=== PATIENT | female | born 1935 | race Caucasian/White ===

== ENCOUNTER 2017-01-21 17:20 | Inpatient (IN) | payer MEDICARE ==
[~2017-01-21] VITALS: Ht 165.1 cm; Wt 69.4 kg
[~2017-01-21 17:20] MED LIST: ACET-732 PO; ASCO100T10 PO; ASPI-623 PO; CALC-586 PO; DOCU-118 PO; IBUP200C42 PO; LUTE20CA3 PO; MULT-806 PO; OMEP20TA11 PO; PRAV40TA46 PO; SPIR50TA26 PO; VERA80TA PO
--- OUTSIDE RECORDS SUMMARY | 2017-01-21 17:52 | XMS REPORT | Referral Summary ---
Author Organization Unknown Address Unknown Phone Unavailable Care Team Providers Care Manager Unit Name Role Phone Jeannie Kulkarni Primary Care Physician [phone] Encounter VC Date(s): 10/25/14 - 10/25/14 [facility]PHANIE Carrillo, [facility], Internal Medicine [address] [place] [address] ANA Spencer [id number] Discharge Diagnosis: Mild cognitive impairment Discharge Disposition: Home or Self Care Attending Physician: Terrence Kulkarni MD Admitting Physician: Terrence Kulkarni MD Vital Signs Most recent to 1 oldest [Reference Range]: Temperature Oral 36.1 degC [35.8-37.3 degC] (10/25/14 1:14 PM) Peripheral Pulse 74 bpm Rate [60-100 bpm] (10/25/14 1:14 PM) Respiratory Rate 16 br/min [14-20 br/min] (10/25/14 1:14 PM) Blood Pressure 150/78 mmHg [90-140/60-90 mmHg] *HI* (10/25/14 1:14 PM) Most recent to 1 oldest [Reference Range]: SpO2 97 % (10/25/14 1:14 PM) Problem List Condition Effective Dates Status Health Status Informant Cataracts(Confirmed) 2001 Active Chicken Active pox(Confirmed) Constipation(Confirm Active ed) Gastro-esophageal Active reflux(Confirmed) Hearing Active loss(Confirmed)1 High 2004 Active cholesterol(Confirme d) Hives(Confirmed) Active Hypertension(Confirm 1977 Active ed) Urine Active Infection(Confirmed) Insomnia(Confirmed) 2005 Active Measles(Confirmed) Active Menopausal 1979 Resolved symptoms(Confirmed) Migraine Active headache(Confirmed) Mumps(Confirmed) Active Osteoarthritis(Confi 1973 Active rmed) Overweight(Confirmed 1960 Active ) Scarlet Active fever(Confirmed) Stress 2007 Active incontinence(Confirm ed) Stroke(Confirmed) 1985 Active TIA(Confirmed) Active Urge Active incontinence(Confirm ed) Visual 1948 Active problems(Confirmed) 1Partial Allergies, Adverse Reactions, Alerts Substance Reaction Severity Status acetaminophen Active clarithromycin Active ezetimibe Active HYDROcodone Active niacin hot flashes and itching Active penicillin Trouble Breathing Active propranolol Active rofecoxib Active Medications aspirin 325 mg, Oral, Daily, as needed for pain, 0 Refill(s) Start Date: 04/29/14 Status: Ordered bethanechol 25 mg oral tablet 1 tabs, Oral, Daily, 0 Refill(s) Start Date: 05/31/14 Status: Ordered Dulcolax Stool Softener mg, Oral, Daily, as needed for constipation, 0 Refill(s) Start Date: 04/29/14 Status: Ordered Flax Seed Oil ground meal, 0 Refill(s) Special Instructions: ground meal Start Date: 04/26/14 Status: Ordered ibuprofen 200 mg oral tablet 1 tabs, Oral, q6hr, 0 Refill(s) Start Date: 04/26/14 Status: Ordered Lutein 20 mg oral tablet 1 tabs, Oral, Daily, # 30 tabs, 0 Refill(s) Start Date: 04/26/14 Status: Ordered pravastatin 40 mg oral tablet See Instructions, TAKE ONE TABLET BY MOUTH EVERY DAY, # 90 tabs, eRx: [facility]94, TAKE ONE TABLET BY MOUTH EVERY DAY Special Instructions: TAKE ONE TABLET BY MOUTH EVERY DAY Start Date: 08/26/14 Status: Ordered spironolactone 100 mg oral tablet See Instructions, TAKE ONE TABLET BY MOUTH DAILY ALTERNATING WITH 1/2 TABLET EVERY OTHER DAY., # 72 tabs, eRx: [facility] 794, TAKE ONE TABLET BY MOUTH DAILY ALTERNATING WITH 1/2 TABLET EVERY OTHER DAY. Special Instructions: TAKE ONE TABLET BY MOUTH DAILY ALTERNATING WITH 1/2 TABLET EVERY OTHER DAY. Start Date: 09/30/14 Status: Ordered verapamil 80 mg oral tablet See Instructions, TAKE ONE TABLET BY MOUTH THREE TIMES DAILY, # 270 tabs, eRx: [facility] 794, TAKE ONE TABLET BY MOUTH THREE TIMES DAILY Special Instructions: TAKE ONE TABLET BY MOUTH THREE TIMES DAILY Start Date: 09/24/14 Status: Ordered Results No data available for this section Immunizations Vaccine Date Refusal Reason influenza virus vaccine, inactivated 07/09/14 influenza virus vaccine, live 07/18/13 influenza virus vaccine, live 08/04/12 pneumococcal 23-polyvalent vaccine 12/04/03 tetanus-diphth toxoids (Td) adult/adol 08/03/05 zoster vaccine live 06/27/12 Procedures Procedure Date Related Diagnosis Body Site Vasovagal syncope1 2013 Cataract extraction2 2012 Colonoscopy3 02/18/12 Colonoscopy - Diverticuli 2007 Hernia repair4 1998 Repair of ventral hernia 1998 Hernia repair 1996 Colonoscopy - hyperplastic polyps 1994 Cholecystectomy 1989 Cholecystectomy 1989 Repair of epigastric hernia 1989 Hysterectomy 1983 Toenail Removed 1983 Vaginal hysterectomy 1983 Back strain 1980 Dilation and curettage 1980 Abdominal cramping 1973 Hemorrhoidectomy 1973 Appendectomy 1954 Cystoscopy gall bladder Rectocele Repair 1Hospitalization for evaluation. 2BILATERAL 3WNL, MInimal # Sigmond Diverticula. Fam HX 1st Degree-Repeat 5 Years 4Right Inguinal. and Incisional Social History Social History Type Response Smoking Status Never smoker Assessment and Plan Extracted from: Title: Ambulatory Patient Education Author: Terrence Kulkarni MD Date: Follow Up With: Where: When: Terrence Santiago[address]; [place] [address] [facility] ([facility]) In 4 months 02/22/2015 Comments: Extracted from: Title: Office Visit Note Author: Terrence Kulkarni MD Date: 10/25/14 Assessment/Plan Mild cognitive impairment Her condition is stable at this time. Her appointment today was over 20 minutes with over 50 percent of the appointment devoted to counseling. Ordered: Office Visit Level 3 Est [address]806
--- OUTSIDE RECORDS SUMMARY | 2017-01-21 17:52 | XMS REPORT | Summary of Care ---
Author Author Blayne Robins, Brooke Organization Unknown Address [address], [place] [id number] Phone Unavailable Care Team Providers Care Pharmacy Benefits Coordinator Name Role Phone SangeetajahOseas Unavailable Unavailable Mell Nam M.D. Unavailable Unavailable Brooke Cisneros M.D. Unavailable Unavailable Nicole Cisneros Unavailable Unavailable Unavailable Unavailable Functional Status Name Dates Details Functional status health issues are not documented Status: Name Dates Details Cognitive status health issues are not documented Status: Problems Name Dates Details Viral gastroenteritis (008.8, A08.4) Status: Active Urinary retention (788.20, R33.9) Status: Active Urge incontinence (788.31, N39.41) Status: Active Upper GI bleed (578.9, K92.2) Status: Active Peripheral neuropathy (356.9, G62.9) Status: Active Osteoarthritis (715.90, M19.90) Status: Active Neurogenic bladder (596.54, N31.9) Status: Active Gastritis (535.50, K29.70) Status: Active Antral gastritis (535.40, K29.50) Status: Active Decreased hearing of both ears (389.9, H91.93) Status: Active Aortic stenosis, moderate (424.1, I35.0) Status: Active 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 * Start Active Verapamil HCl - 80 MG Oral Tablet TAKE ONE TABLET BY MOUTH THREE TIMES DAILY * Quantity: 90 Refills: 0 Ramin Nam M.D. Start 09-Jun-2016 Active Pravastatin Sodium 40 MG Oral Tablet TAKE 1 TABLET DAILY AT BEDTIME. * Quantity: 90 Refills: 1 Ramin Nam M.D. * Start 09-Sep-2009 Active Lutein 20 MG Oral Tablet * Refills: 0 * Start 18-Aug-2012 Active Stool Softener 100 MG Oral Tablet * Refills: 0 * Start 18-Aug-2012 Active Bethanechol Chloride 25 MG Oral Tablet TAKE ONE TABLET BY MOUTH ONCE DAILY * Quantity: 90 Refills: 3 Fredy Pillai * Start 17-May-2014 Active Tylenol 325 MG Oral Tablet TAKE 2 TABLETS EVERY 6 HOURS NEEDED. * Refills: 0 Ramin Nam M.D. * Start 22-Jul-2016 Active Fluticasone Propionate 50 MCG/ACT Nasal Suspension * Refills: 0 * Start 22-Sep-2016 Active Lansoprazole 15 MG Oral Capsule Delayed Release TAKE 1 CAPSULE EVERY MORNING DAILY. * Quantity: 30 Refills: 0 Brooke Cisneros M.D. * Start 05-Nov-2016 Active Namzaric 7 & 14 & 21 &28 -10 MG Oral Capsule ER 24 Hour Therapy Pack Take 1- 7 mg/ capsule daily x 1 week, then 1 - 14 mg capsule daily x 1 week, the 1 - 21 capsule daily x 1 week, then 1 - 28 mg capsule daily * Quantity: 28 Refills: 0 Brooke Cisneros M.D. * Start 05-Nov-2016 Active Spironolactone 50 MG Oral Tablet TAKE 1/2 TABLETS DAILY FOT HTN * Refills: 0 * Start 01-Dec-2016 Active Allergies and Adverse Reactions Name Dates Details Biaxin TABS (Allergy) Status: Active Flexeril (Allergy) Status: Active Inderal TABS (Allergy) Status: Active Niacin TABS (Allergy) Status: Active Penicillins (Allergy) Status: Active Vicodin TABS (Allergy) Status: Active Vioxx TABS (Allergy) Status: Active Vytorin TABS (Allergy) Status: Active Past Medical History Name Dates Details Antral gastritis (535.40, K29.50) Status: Active Aortic stenosis, moderate (424.1, I35.0) Status: Active 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, 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) Status: Active Dementia in Alzheimer's disease (331.0, G30.9) Status: Active Esophageal reflux (530.81, K21.9) Status: Active Gastritis (535.50, K29.70) Status: Active Hyperlipidemia (272.4, E78.5) Status: Active Hypertension (401.9, I10) Status: Active Neurogenic bladder (596.54, N31.9) Status: Active Osteoarthritis (715.90, M19.90) Status: Active Peripheral neuropathy (356.9, G62.9) Status: Active Upper GI bleed (578.9, K92.2) Status: Active Urge incontinence (788.31, N39.41) Status: Active Urinary retention (788.20, R33.9) Status: Active Viral gastroenteritis (008.8, A08.4) Status: Active History of Actinic keratosis (702.0, L57.0) Status: Resolved History of angioedema (V13.89, Z87.898) Status: Resolved History of Intertrigo (695.89, L30.4) Status: Resolved History of Left otitis media with effusion (381.4, H66.92) Status: Resolved History of seborrheic dermatitis (V13.3, Z87.2) Status: Resolved Personal history of skin cancer (V10.83, Z85.828) Status: Resolved Procedures Procedure Dates Details History of Appendectomy History of Gallbladder Surgery History of Hysterectomy DEXA Ordered: 01-Dec-2016 Immunization Name Dates Details Fluzone High-Dose 0.5 ML Intramuscular Suspension Prefilled Syringe on: 23-Jun-2016 Prevnar 13 Intramuscular Suspension Lot #: [id number] on: 22-Jul-2016 Family History Name Dates Details Family history of kidney stones (V18.69, Z84.1) Status: Active Name Dates Details Family history of Hay Fever Status: Active Social History Name Dates Details - Status: Name Dates Details Never smoker Vital Signs Date Test Result Details 01-Dec-2016 09:08 BP Systolic 142 mm[Hg] Status: Comments: Location: ; Position: BP Diastolic 80 mm[Hg] Status: Comments: Location: ; Position: Temperature 98 f Status: Heart Rate 76 /min Status: Comments: Location: ; Physical Findings 18 Status: Comments: Respiration Weight 155 lb Status: Body Mass Index Calculated 28.35 kg/m2 Status: Body Surface Area Calculated 1.72 m2 Status: 05-Nov-2016 13:18 BP Systolic 136 mm[Hg] Status: Comments: Location: ; Position: BP Diastolic 74 mm[Hg] Status: Comments: Location: ; Position: Heart Rate 72 /min Status: Comments: Location: ; Physical Findings 18 Status: Comments: Respiration Weight 152 lb Status: Body Mass Index Calculated 27.8 kg/m2 Status: Body Surface Area Calculated 1.7 m2 Status: Results Date Description Value Details 15-Nov-2016 08:23 CBC w/ Auto Diff 7150 Comments: Fastin hours WBC 4.9 K/uL Range: 4.5-11.0 RBC 4.77 mil/uL Range: 3.60-5.00 HGB 14.9 g/dL Range: 12.0-16.0 HCT 44.9 % Range: 36.0-48.0 MCV 94.1 fL Range: 80.0-99.0 MCH 31.3 pg Range: 27.3-32.5 MCHC 33.3 % Range: 32.0-36.0 RDW 14.2 % Range: 11.6-14.8 PLATELETS 219 K/uL Range: 150-400 MPV 7.3 fL Range: 6.0-11.0 %NEUTRO 69.0 % Range: 37.0-80.0 %LYMPHS 21.4 % Range: 13.0-50.0 %MONO 5.3 % Range: 0.0-12.0 %EOS 1.3 % Range: 0.0-7.0 %BASO 0.7 % Range: 0.0-2.5 %IRVING 2.3 % Range: 0.0-5.0 NEUTRO 3.4 K/uL Range: 2.0-6.9 LYMPHS 1.1 K/uL Range: 0.6-3.4 MONOS 0.3 K/uL Range: 0.0-0.9 EOS 0.1 K/uL Range: 0.0-0.7 BASO 0.0 K/uL Range: 0.0-0.2 08:41 Comprehensive Metabolic Panel 1212 Comments: Fastin hours SODIUM 140 mmol/L Range: 133-144 POTASSIUM 4.0 mmol/L Range: 3.5-5.1 CHLORIDE 105 mmol/L Range: 98-110 CARBON DIOXIDE 27.2 mmol/L Range: 23.0-33.0 ANION GAP 8 mmol/L Range: 6-16 BUN 17 mg/dL Range: 7-18 CREATININE, SERUM 0.74 mg/dL Range: 0.55-1.02 BUN:CREATININE RATIO 23 EST GFR, >60 ml/min Range: >60 EST GFR, NON-AFR KITTITIAN >60 ml/min Range: >60 Comments: EST GFR is reported in ml/min per 1.73 m2 of body surface area. ----- GLUCOSE 91 mg/dL Range: 70-100 ALK PHOSPHATASE 61 U/L Range: 46-116 TOTAL BILIRUBIN 0.50 mg/dL Range: 0.20-1.00 AST 19 U/L Range: 8-35 ALT 19 U/L Range: 14-59 ALBUMIN 3.4 g/dL Range: 3.4-5.0 TOTAL PROTEIN 6.7 g/dL Range: 6.4-8.2 A/G RATIO 1.0 units Range: 1.0-1.8 CALCIUM 8.7 mg/dL Range: 8.5-10.1 08:41 LIPID PROFILE 1184 Comments: Fastin hours CHOLESTEROL 167 mg/dL Range: <200 TRIGLYCERIDES 54 mg/dL Range: 30-200 HDL Cholesterol 65 mg/dL Range: >39 NON HDL CHOLESTEROL 102 CARDIAC RSK FACTOR 2.6 units (Below low threshold) Range: 4.4-5.0 LDL - CALCULATED 91 mg/dL Range: 0-130 08:47 FREE T4 3604 Comments: Fastin hours FREE T4 0.97 ng/dL Range: 0.80-1.67 08:47 THYROID STIM. HORMONE 3602 Comments: Fastin hours THYROID STIM. HORMONE 1.695 uIU/mL Range: 0.550-4.780 Comments: No established reference ranges for infants and children <2 years of age----- Plan of Care Name Dates Details Planned Observations Planned Goals not documented Planned Encounters Appointment; Provider: Fredy Pillai M.D.,FACS, On 06-Jul-2017 08:45 Appointment; Provider: Keri Barraza A.P.R.N. On 21-Jan-2017 10:00 Instructions Name Dates Details Instructions not documented Encounters Appointment; Brooke Cisneros M.D. Encounter Diagnosis: Problem not documented On 05-Nov-2016 13:00 Appointment; Ko Brothers M.D. Encounter Diagnosis: Problem not documented On 01-Oct-2016 10:45 Appointment; Denny Foster M.D. Encounter Diagnosis: Problem not documented On 22-Sep-2016 14:09 Appointment; Ko Brothers M.D. Encounter Diagnosis: Problem not documented On 01-Sep-2016 14:15 Appointment; Ramin Nam M.D. Encounter Diagnosis: Problem not documented On 24-Aug-2016 13:30 Appointment; Zeeshan Green M.D.|F.A.C.S.|Julienne,DALJIT|Julienne,DALJIT, Encounter Diagnosis: Problem not documented On 11-Aug-2016 11:15 Appointment; Zeeshan Green M.D.|F.A.C.S.|Julienne,DALJIT|Julienne,DALJIT, Encounter Diagnosis: Problem not documented On 04-Aug-2016 09:00 Appointment; Mehrdad Laura Encounter Diagnosis: Problem not documented On 04-Aug-2016 08:30 Appointment; Ramin Nam M.D. Encounter Diagnosis: Problem not documented On 22-Jul-2016 10:15 Appointment; Fredy Pillai M.D.,DALJIT, Encounter Diagnosis: Problem not documented On 05-Jul-2016 08:15 Appointment; Leonardo Stokes M.D. Encounter Diagnosis: Problem not documented On 14-Jun-2016 10:00 Appointment; Ramin Jonas M.D. Encounter Diagnosis: Problem not documented On 08-Jun-2016 09:00 Appointment; Ramin Nam M.D. Encounter Diagnosis: Problem not documented On 20-May-2016 10:30 Appointment; Ramin Nam M.D. Encounter Diagnosis: Problem not documented On 17-Feb-2016 10:30 Appointment; Deacon Camarena D.O. Encounter Diagnosis: Problem not documented On 26-Nov-2015 08:20 Appointment; Ramin Nam M.D. Encounter Diagnosis: Problem not documented On 19-Nov-2015 11:00 Appointment; Yared Nazario M.D. Encounter Diagnosis: Problem not documented On 05-Nov-2015 08:15 Appointment; Fredy Pillai M.D., FACS, Encounter Diagnosis: Problem not documented On 02-Jul-2015 08:45"
--- OUTSIDE RECORDS SUMMARY | 2017-01-21 17:53 | XMS REPORT | Summary of Care ---
Author Author Kike Robins, Leonardo Organization Unknown Address Unknown Phone Unavailable Care Team Providers Care Tractor Trailer Operator Name Role Phone Rosas Robins, FACS, ,, M Unavailable Unavailable Viv Robins, Mell Unavailable Unavailable Kike Robins, Leonardo Unavailable Unavailable Ramin Nam Unavailable Unavailable Unavailable Unavailable Functional Status Name Dates Details Functional status health issues are not documented Status: Name Dates Details Cognitive status health issues are not documented Status: Problems Name Dates Details Osteoarthritis (715.90, M19.90) Status: Active Urinary retention (788.20, R33.9) Status: Active Peripheral neuropathy (356.9, G62.9) Status: Active Hyperlipidemia (272.4, E78.5) Status: Active Diarrhea (787.91, R19.7) Status: Active Abdominal cramping in left lower quadrant (789.04, R10.32) Status: Active Abdominal cramping in right lower quadrant (789.03, R10.31) Status: Active Viral gastroenteritis (008.8, A08.4) Status: Active Dementia in Alzheimer's disease (331.0, G30.9) Status: Active Esophageal reflux (530.81, K21.9) Status: Active Hypertension (401.9, I10) Status: Active Neurogenic bladder (596.54, N31.9) Status: Active Aortic stenosis, moderate (424.1, I35.0) Status: Active Left buttock pain (729.1, M79.1) Status: Active Left hip pain (719.45, M25.552) Status: Active Dementia (294.20, F03.90) Status: Active Medications Name Dates Details Aldactone 100 MG Oral Tablet TAKE 1 TABLET DAILY WITH BREAKFAST. * Start Active Verapamil HCl - 80 MG Oral Tablet TAKE ONE TABLET BY MOUTH THREE TIMES DAILY * Quantity: 90 Refills: 0 Ramin Nam M.D. * Start 09-Jun-2016 Active Daily Multiple Vitamins/Min Oral Tablet * Refills: 0 * Start Active Pravastatin Sodium 40 MG Oral Tablet TAKE 1 TABLET DAILY AT BEDTIME. * Quantity: 90 Refills: 1 Viv Robins, Ramin Monte * Start 09-Sep-2009 Active PriLOSEC OTC 20 MG Oral Tablet Delayed Release TAKE 1 TABLET DAILY. * Refills: 0 * Start 09-Sep-2009 Active Ibuprofen 100 MG/5ML Oral Suspension * Refills: 0 * Start 13-Aug-2011 Active Aspirin Low Dose TABS TAKE 1 TABLET DAILY. * Refills: 0 * Start 18-Aug-2012 Active Lutein 20 MG Oral Tablet * Refills: 0 * Start 18-Aug-2012 Active Stool Softener 100 MG Oral Tablet * Refills: 0 * Start 18-Aug-2012 Active Bethanechol Chloride 25 MG Oral Tablet TAKE ONE TABLET BY MOUTH ONCE DAILY * Quantity: 90 Refills: 3 Rosas Robins, FACS, , , Fredy Farooq * Start 17-May-2014 Active Donepezil HCl - 10 MG Oral Tablet TAKE 1 TABLET DAILY WITH FOOD EACH MORNING * Quantity: 1 Refills: 6 Ramin Nam M.D. * Start 19-Nov-2015 Active 30 Tablet Bottle Allergies and Adverse Reactions Name Dates Details Biaxin TABS (Allergy) Status: Active Flexeril (Allergy) Status: Active Inderal TABS (Allergy) Status: Active Niacin TABS (Allergy) Status: Active Penicillins (Allergy) Status: Active Vicodin TABS (Allergy) Status: Active Vioxx TABS (Allergy) Status: Active Vytorin TABS (Allergy) Status: Active Past Medical History Name Dates Details History of Actinic keratosis (702.0, L57.0) Status: Resolved History of angioedema (V13.89, Z87.898) Status: Resolved History of Intertrigo (695.89, L30.4) Status: Resolved History of seborrheic dermatitis (V13.3, Z87.2) Status: Resolved Personal history of skin cancer (V10.83, Z85.828) Status: Resolved Procedures Procedure Dates Details History of Appendectomy History of Gallbladder Surgery History of Hysterectomy ORTHO HIP LEFT (1 VIEW ONLY) Ordered: 04-Jun-2016 ORTHO PELVIS (AP ONLY) Ordered: 04-Jun-2016 ORTHO SPINE LUMBAR (5 VIEWS) Ordered: 09-Jun-2016 Immunization Name Dates Details Immunizations not documented Family History Name Dates Details Family history of kidney stones (V18.69, Z84.1) Status: Active Name Dates Details Family history of Hay Fever Status: Active Social History Name Dates Details - Status: Name Dates Details Never smoker Vital Signs Date Test Result Details 14-Jun-2016 10:10 BP Systolic 132 mm[Hg] Status: Comments: Location: ; Position: BP Diastolic 68 mm[Hg] Status: Comments: Location: ; Position: Heart Rate 72 /min Status: Comments: Location: ; Weight 160 lb Status: Body Mass Index Calculated 29.26 kg/m2 Status: Body Surface Area Calculated 1.74 m2 Status: 08-Jun-2016 09:05 BP Systolic 189 mm[Hg] Status: Comments: Location: ; Position: BP Diastolic 87 mm[Hg] Status: Comments: Location: ; Position: Heart Rate 60 /min Status: Comments: Location: ; Physical Findings 16 Status: Comments: Respiration Results Date Description Value Details 20-May-2016 09:42 BASIC METABOLIC PROFILE 1210 SODIUM 142 mmol/L Range: 133-144 POTASSIUM 4.1 mmol/L Range: 3.5-5.1 CHLORIDE 102 mmol/L Range: 98-110 CARBON DIOXIDE 30.0 mmol/L Range: 23.0-33.0 ANION GAP 10 mmol/L Range: 6-16 BUN 30 mg/dL (Above high threshold) Range: 7-18 CREATININE, SERUM 0.77 mg/dL Range: 0.55-1.02 Comments: Please note new reference ranges effective 2015.----- EST GFR, >60 ml/min Range: >60 EST GFR, NON-AFR SERBIAN >60 ml/min Range: >60 Comments: EST GFR is reported in ml/min per 1.73 m2 of body surface area. For -[place]oz[place], please multiple result by 1.2.----- BUN:CREATININE RATIO 39 GLUCOSE 89 mg/dL Range: 70-100 CALCIUM 8.9 mg/dL Range: 8.5-10.1 Plan of Care Name Dates Details Planned Observations Planned Goals not documented Planned Encounters Appointment; Provider: Ramin Nam M.D. On 24-Aug-2016 13:30 Appointment; Provider: Fredy Pillai M.D.|YobaniLinsey,ALIRIO,DALJIT, On 05-Jul-2016 08:15 Interventions Provided Labs/Procedures/Imaging* ORTHO SPINE LUMBAR (5 VIEWS); To be Done: 14 Jun 2016 Instructions Name Dates Details Instructions not documented Encounters Appointment; Ramin Jonas M.D. Encounter Diagnosis: Problem [...] documented On 05-Nov-2015 08:15 Appointment; Fredy Pillai M.D.|VibhaC.SSean|Julienne,DALJIT|Julienne,DALJIT, Encounter Diagnosis: Problem not documented On 02-Jul-2015 08:45 Appointment; Yared Nazario M.D. Encounter Diagnosis: Problem not documented On 31-Oct-2014 14:15 Appointment; Fredy Pillai M.D.|VibhaC.SALIRIO Solitario,DALJIT, Encounter Diagnosis: Problem not documented On 28-Jun-2014 08:45"
--- OUTSIDE RECORDS SUMMARY | 2017-01-21 17:53 | XMS REPORT | Summary of Care ---
Author Author Ramin aNm M.D. Organization Unknown Address [address] [place], [place] [id number] Phone Unavailable Care Team Providers Care Employment Office Clerk Name Role Phone Rosas Robins, DALJIT, ,, M Unavailable Unavailable Mell Nam M.D. Unavailable Unavailable Ramin Nam PP Unavailable Unavailable Unavailable Functional Status Functional Status Health Issues* Name Dates Details Functional status health issues are not documented Status: Cognitive Status Health Issues* Name Dates Details Cognitive status health issues are not documented Status: Problems Name Dates Details Osteoarthritis (715.90, M19.90) Status: Active Urinary retention (788.20, R33.9) Status: Active Dementia in Alzheimer's disease (331.0, G30.9) Status: Active Peripheral neuropathy (356.9, G62.9) Status: Active Neurogenic bladder (596.54, N31.9) Status: Active Hypertension (401.9, I10) Status: Active Esophageal reflux (530.81, K21.9) Status: Active Hyperlipidemia (272.4, E78.5) Status: Active Diarrhea (787.91, R19.7) Status: Active Abdominal cramping in left lower quadrant (789.04, R10.32) Status: Active Abdominal cramping in right lower quadrant (789.03, R10.31) Status: Active Viral gastroenteritis (008.8, A08.4) Status: Active Medications Name Dates Details Aldactone 100 MG Oral Tablet TAKE 1 TABLET DAILY WITH BREAKFAST. * Started ActiveVerapamil HCl - 80 MG Oral Tablet TAKE 1 TABLET 3 TIMES DAILY. * Quantity: 90 Refills: 3 Ramin Nam M.D.* Started ActiveDaily Multiple Vitamins/Min Oral Tablet * Refills: 0 * Started ActiveCalcium 600+D 600-400 MG-UNIT Oral Tablet * Refills: 0 * Started ActivePravastatin Sodium 40 MG Oral Tablet TAKE 1 TABLET DAILY AT BEDTIME. * Refills: 0 * Started 09-Sep-2009 ActivePriLOSEC OTC 20 MG Oral Tablet Delayed Release TAKE 1 TABLET DAILY. * Refills: 0 * Started 09-Sep-2009 ActiveIbuprofen 100 MG/5ML Oral Suspension * Refills: 0 * Started 13-Aug-2011 ActivePriLOSEC OTC 20 MG Oral Tablet Delayed Release * Refills: 0 * Started 13-Aug-2011 ActiveAspirin 325 MG Oral Tablet * Refills: 0 * Started 18-Aug-2012 ActiveLutein 20 MG Oral Tablet * Refills: 0 * Started 18-Aug-2012 ActiveVitamin C 500 MG Oral Tablet * Refills: 0 * Started 18-Aug-2012 ActiveStool Softener 100 MG Oral Tablet * Refills: 0 * Started 18-Aug-2012 ActiveDonepezil HCl - 10 MG Oral Tablet TAKE 1 TABLET DAILY WITH FOOD EACH MORNING * Quantity: 1 Refills: 6 Ramin Nam M.D.* Started 19-Nov-2015 Vumdom83 Tablet Bottle Bethanechol Chloride 25 MG Oral Tablet TAKE ONE TABLET BY MOUTH ONCE DAILY * Quantity: 90 Refills: 3 Fredy Pillai M.D., FACS, , * Started 17-May-2014 Active Allergies and Adverse Reactions Name Dates Details Biaxin TABS Status: Active Flexeril Status: Active Inderal TABS Status: Active Niacin TABS Status: Active Penicillins Status: Active Vicodin TABS Status: Active Vioxx TABS Status: Active Vytorin TABS Status: Active Past Medical History Name Dates Details History of Actinic keratosis (702.0, L57.0) Status: Resolved History of angioedema (V13.89, Z87.898) Status: Resolved History of Intertrigo (695.89, L30.4) Status: Resolved History of seborrheic dermatitis (V13.3, Z87.2) Status: Resolved Personal history of skin cancer (V10.83, Z85.828) Status: Resolved Procedures Procedure Dates Details History of Appendectomy History of Gallbladder Surgery History of Hysterectomy Procedures not documented Immunization Name Dates Details Immunizations not documented Family History natural daughter* Name Dates Details Family history of kidney stones (V18.69, Z84.1) Status: Active Father* Name Dates Details Family history of Hay Fever Status: Active Social History Name Dates Details Smoking Status* Never smoker Vital Signs Date Test Result Details No Known Vitals to report Results Date Description Value Details Results not documented Plan of Care Planned Observations* Name Dates Details Planned Goals not documented Goal Planned Encounters* Appointment; Provider: Fredy Pillai On 05-Jul-2016 08:15 * Appointment; Provider: Ramin Nam On 17-Feb-2016 10:30 * Appointment; Provider: Fredy Pillai On 03-May-2014 07:00 Instructions * Instructions not documented Encounters Appointment; Deacon Camarena Encounter Diagnosis: Problem not documented On 26-Nov-2015 08:20 Appointment; Ramin Nam Encounter Diagnosis: Problem not documented On 19-Nov-2015 11:00 Appointment; Yared Nazario Encounter Diagnosis: Problem not documented On 05-Nov-2015 08:15 Appointment; Fredy Pillai Encounter Diagnosis: Problem not documented On 02-Jul-2015 08:45 Appointment; Yared Nazario Encounter Diagnosis: Problem not documented On 31-Oct-2014 14:15 Appointment; Fredy Pillai Encounter Diagnosis: Problem not documented On 28-Jun-2014 08:45 Appointment; Fredy Pillai Encounter Diagnosis: Problem not documented On 17-May-2014 08:30 Appointment; Fredy Pillai Encounter Diagnosis: Problem not documented On 03-May-2014 08:30
--- OUTSIDE RECORDS SUMMARY | 2017-01-21 17:53 | XMS REPORT | Summary of Care ---
Author Ramin Arguello M.D. Organization Unknown Address Unknown Phone Unavailable Care Team Providers Care Track Hoe Operator Name Role Phone Rosas Robins, FACS, ,, M Unavailable Unavailable Viv Robins, W Unavailable Unavailable Jose Jonas M.D. Unavailable Unavailable Ramin Nam Unavailable Unavailable Unavailable [...] Left hip pain (719.45, M25.552) Status: Active Medications Name Dates Details Aldactone 100 MG Oral Tablet TAKE 1 TABLET DAILY WITH BREAKFAST. * Start Active Verapamil HCl - 80 MG Oral Tablet TAKE 1 TABLET 3 TIMES DAILY. * Quantity: 90 Refills: 3 Viv Robins, Ramin Monte * Start Active Daily Multiple Vitamins/Min Oral Tablet * Refills: 0 * Start Active Pravastatin Sodium 40 MG Oral Tablet TAKE 1 TABLET DAILY AT BEDTIME. * Refills: 0 * Start 09-Sep-2009 Active PriLOSEC OTC 20 [...] * Quantity: 90 Refills: 3 Rosas Robins, DALJIT, , , Fredy Farooq * Start 17-May-2014 Active Donepezil HCl - 10 MG Oral Tablet TAKE 1 TABLET DAILY WITH FOOD EACH MORNING * Quantity: 1 Refills: 6 Viv Robins, Ramin Monte * Start 19-Nov-2015 Active 30 Tablet Bottle [...] 04-Jun-2016 ORTHO PELVIS (AP ONLY) Ordered: 04-Jun-2016 Immunization Name Dates Details Immunizations not documented Family History Name Dates Details Family history of kidney stones (V18.69, Z84.1) Status: Active Name Dates Details Family history of Hay Fever Status: Active Social History Name Dates Details - Status: Name Dates Details Never smoker Vital Signs Date Test Result Details 08-Jun-2016 09:05 BP Systolic 189 mm[Hg] Status: [...] >60 ml/min Range: >60 EST GFR, NON-AFR [place] >60 ml/min Range: >60 Comments: EST GFR is reported in ml/min per 1.73 m2 of body surface area. For -[place], please multiple result by 1.2.----- BUN:CREATININE RATIO 39 GLUCOSE 89 mg/dL Range: 70-100 CALCIUM 8.9 mg/dL Range: 8.5-10.1 Plan of Care Name Dates Details Planned Observations Planned Goals not documented Planned Encounters Appointment; Provider: aRmin Nam M.D. On 24-Aug-2016 13:30 Appointment; Provider: Fredy Pillai M.D.|DALJIT Winn|DALJIT Robins, On 05-Jul-2016 08:15 Appointment; Provider: Leonardo Stokes M.D. On 14-Jun-2016 10:00 Interventions Provided Labs/Procedures/Imaging* ORTHO HIP LEFT (1 VIEW ONLY); To be Done: 08 Jun 2016 * ORTHO PELVIS (AP ONLY); To be Done: 08 Jun 2016 Instructions Name Dates Details Instructions not documented Encounters Appointment; Ramin Nam M.D. Encounter Diagnosis: Problem not documented On 20-May-2016 10:30 Appointment; Ramin Nam M.D. Encounter Diagnosis: Problem not documented On 17-Feb-2016 10:30 Appointment; Deacon Camarena D.O. Encounter Diagnosis: Problem not documented On 26-Nov-2015 08:20 Appointment; Ramin Nam M.D. Encounter Diagnosis: Problem not documented On 19-Nov-2015 11:00 Appointment; Yared Nazario M.D. Encounter Diagnosis: Problem not documented On 05-Nov-2015 08:15 Appointment; Fredy Pillai M.D.|F.[facility]ira.C.[facility].|ALIRIO Robins,DALJIT, Encounter Diagnosis: Problem not documented On 02-Jul-2015 08:45 Appointment; Yared Nazario M.D. Encounter Diagnosis: Problem not documented On 31-Oct-2014 14:15 Appointment; Fredy Pillai M.D.|F.Vira.C.S.|Julienne,DALJIT|Julienne,FACS, Encounter Diagnosis: Problem not documented On 28-Jun-2014 08:45"
--- OUTSIDE RECORDS SUMMARY | 2017-01-21 17:53 | XMS REPORT | Summary of Care ---
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 Quantity: 45 Ramin Nam M.D. Start Active Verapamil HCl - 80 MG Oral Tablet TAKE ONE TABLET BY MOUTH THREE TIMES DAILY * Quantity: 90 Refills: 0 Ramin Nam M.D. Start 09-Jun-2016 Active PriLOSEC OTC 20 MG Oral Tablet Delayed Release TAKE 1 TABLET TWICE DAILY. * Refills: 0 * Start 09-Sep-2009 Active Bethanechol Chloride 25 MG Oral Tablet TAKE ONE TABLET BY MOUTH ONCE DAILY * Quantity: 90 Refills: 3 Rosas Robins, FACS, , , Fredy Farooq * Start 17-May-2014 Active Stool Softener 100 MG Oral Tablet * Refills: 0 * Start 18-Aug-2012 Active Lutein 20 MG Oral Tablet * Refills: 0 * Start 18-Aug-2012 Active Pravastatin Sodium 40 MG Oral Tablet TAKE 1 TABLET DAILY AT BEDTIME. * Quantity: 90 Refills: 1 Ramin Nam M.D. Start 09-Sep-2009 Active Tylenol 325 MG Oral Tablet TAKE 2 TABLETS EVERY 6 HOURS NEEDED. * Refills: 0 Ramin Nam M.D. Start 22-Jul-2016 Active Donepezil HCl - 10 MG Oral Tablet TAKE 1 TABLET DAILY WITH FOOD EACH MORNING * Quantity: 1 Refills: 6 Ramin Nam M.D. Start 19-Nov-2015 Active 30 Tablet Bottle Allergies [...] History of Gallbladder Surgery History of Hysterectomy HEMOGRAM 7305 Ordered: 22-Jul-2016 BASIC METABOLIC PROFILE 1210 Ordered: 22-Jul-2016 Immunization Name Dates Details Fluzone High-Dose 0.5 ML Intramuscular Suspension Prefilled Syringe on: 23-Jun-2016 Prevnar 13 Intramuscular Suspension Lot #: [id number] on: 22-Jul-2016 Family History Name Dates Details Family history of kidney stones (V18.69, Z84.1) Status: Active Name Dates Details Family history of Hay Fever Status: Active Social History Name Dates Details - Status: Name Dates Details Never smoker Vital Signs Date Test Result Details 01-Sep-2016 14:26 Temperature 97.7 f Status: Comments: Method: Heart Rate 66 /min Status: Comments: Location: ; Physical Findings 99 Status: Comments: O2 Saturation 24-Aug-2016 13:52 BP Systolic 128 mm[Hg] Status: BP Diastolic 76 mm[Hg] Status: Temperature 97.6 f Status: Comments: Method: Heart Rate 76 /min Status: Comments: Location: ; Physical Findings 18 Status: Comments: Respiration Weight 153 lb Status: Body Mass Index Calculated 27.98 kg/m2 Status: Body Surface Area Calculated 1.71 m2 Status: Results Date Description Value Details Results not documented Plan of Care Name Dates Details Planned Observations Planned Goals not documented Planned Encounters Appointment; Provider: Fredy Pillai M.D.|VibhaCSeanSSean|DALJIT Robins|DALJIT Robins, On 06-Jul-2017 08:45 Appointment; Provider: Ko Brothers M.D. On 01-Oct-2016 10:45 Instructions Name Dates Details Instructions not documented Encounters Appointment; Ramin Nam M.D. Encounter Diagnosis: Problem not documented On 24-Aug-2016 13:30 Appointment; Zeeshan Green M.D.|Tian.C.S.|DALJIT Robins|Julienne,DALJIT, Encounter Diagnosis: Problem not documented On 11-Aug-2016 11:15 Appointment; Zeeshan Green M.D.|F.A.C.SSean|Julienne,DALJIT|Julienne,DALJIT, Encounter Diagnosis: Problem not documented On 04-Aug-2016 09:00 Appointment; Keya, Mehrdad Encounter Diagnosis: Problem not documented On 04-Aug-2016 08:30 Appointment; Ramin Nam M.D. Encounter Diagnosis: Problem not documented On 22-Jul-2016 10:15 Appointment; Fredy Pillai M.D.|Tian.C.SSean|DALJIT Robins|Julienne,DALJIT, Encounter Diagnosis: Problem not documented On 05-Jul-2016 [...] documented On 05-Nov-2015 08:15 Appointment; Fredy Pillai M.D.|FSeanA.C.SSean|DALJIT Robins|Julienne,DALJIT, Encounter Diagnosis: Problem not documented On 02-Jul-2015 08:45 Appointment; Yared Nazario M.D. Encounter Diagnosis: Problem not documented On 31-Oct-2014 14:15"
--- OUTSIDE RECORDS SUMMARY | 2017-01-21 17:53 | XMS REPORT ---
Author Author GENERATED, SYSTEM Organization Unknown Address Unknown Phone Unavailable Care Team Providers Care Staff Genetic Counselor Name Role Phone UNASSIGNED DOCTOR , DOCTOR PP [phone] Reason For Visit Reason for Visit from 11/08/2015 8:11 AM:* Pt Stated Reason for Adm : Chest Pain Chief Complaint CHEST PAIN Social History Social History from 11/09/2015 11:13 AM:* Tobacco Use? : Never Smoker Social History from 11/08/2015 8:11 AM:* Tobacco Use? : Never Smoker Functional Status Functional Status from 11/09/2015 8:46 AM:* LOC : Alert * Oriented To : Person,Place,Time,Event * Weight Bearing Status : Full * Assist Level : Partial * # Assists : 1 Functional Status from 11/08/2015 10:44 PM:* LOC : Alert * Oriented To : Person,Place,Time,Event * Weight Bearing Status : Full * Assist Level : Partial * # Assists : 1 Functional Status from 11/08/2015 9:25 PM:* # Assists : 1 Functional Status from 11/08/2015 9:18 PM:* # Assists : 1 Functional Status from 11/08/2015 8:11 AM:* LOC : Alert * Oriented To : Person,Place,Time,Event * Weight Bearing Status : Full * Assist Level : Partial * # Assists : 1 Vital Signs Hospital Vital Signs from 11/09/2015 10:59 AM:* Height : 5/2 ft,in * Temperature : 97.6 F * Pulse : 51 * Respirations : 20 * BP : 172/77 Hospital Vital Signs from 11/09/2015 8:46 AM:* Heart Rate : 57 Hospital Vital Signs from 11/09/2015 7:23 AM:* Height : 5/2 ft,in * Temperature : 97.0 F * Pulse : 60 * Respirations : 20 * BP : 117/62 Hospital Vital Signs from 11/09/2015 6:18 AM:* Pulse : 55 * BP : 194/82 Hospital Vital Signs from 11/09/2015 4:33 AM:* Weight : 76.9/ kg * Height : 5/2 ft,in Hospital Vital Signs from 11/09/2015 2:33 AM:* Height : 5/2 ft,in * Temperature : 97.3 F * Pulse : 55 * Respirations : 20 * BP : 144/67 Hospital Vital Signs from 11/08/2015 10:44 PM:* Heart Rate : 55 Hospital Vital Signs from 11/08/2015 10:20 PM:* Height : 5/2 ft,in * Temperature : 97.6 F * Pulse : 62 * Respirations : 20 * BP : 145/65 Hospital Vital Signs from 11/08/2015 7:15 PM:* Height : 5/2 ft,in * Temperature : 97.9 F * Pulse : 61 * Respirations : 20 * BP : 157/70 Hospital Vital Signs from 11/08/2015 2:33 PM:* Height : 5/2 ft,in * Temperature : 97.5 F * Pulse : 66 * Respirations : 20 * BP : 149/67 Hospital Vital Signs from 11/08/2015 10:18 AM:* Height : 5/2 ft,in * Temperature : 97.5 F * Pulse : 65 * Respirations : 20 * BP : 133/63 Hospital Vital Signs from 11/08/2015 8:11 AM:* Weight : 76.3/ kg * Height : 5/2 ft,in Hospital Vital Signs from 11/08/2015 8:10 AM:* Weight : 76.3/ kg * Height : 5/2 ft,in * Temperature : 96.4 F * Pulse : 62 * Respirations : 20 * BP : 217/94 Results Chemistry from 11/09/2015 4:53 AMCHOLESTEROL 183 MG/DL (50-199 MG/DL) TRIGLYCERIDES 74 MG/DL (0-149 MG/DL) HDL CHOLESTEROL 48 MG/DL (40-60 MG/DL) *LDL (CALCULATED) CHOL 120 MG/DL H (0-99 MG/DL) Chemistry from 11/08/2015 9:01 PMTROPONIN-I <0.017 NG/ML (0.000-0.056 NG/ML) Chemistry from 11/08/2015 3:00 PMTROPONIN-I 0.018 NG/ML (0.000-0.056 NG/ML) Echocardiology from 11/09/2015 12:00 AMEchocardiogram See also the report from this date Problems Encounter Diagnosis * Acute Pain Status:Active. * Chest Pain Status:Active. * Fall Risk Status:Active. * Hypertensive Disorder Status:Active. * Mobility Impairment Status:Active. * Skin Integrity Impairment Risk Status:Active. Additional Problems * Dyslipidemia Comment:Problem resolved by [facility] upon Discharge, Status:Resolved. * History of Hypertension Comment:Problem resolved by [facility] upon Discharge, Status:Resolved. * History of TIA Comment:Problem resolved by [facility] upon Discharge, Status:Resolved. * Near Syncope Comment:Problem resolved by [facility] upon Discharge, Status:Resolved. * Symptomatic Sinus Bradycardia Comment:Problem resolved by [facility] upon Discharge, Status:Resolved. Encounters Encounter Diagnosis * Acute Pain Status:Active. * Chest Pain Status:Active. * Fall Risk Status:Active. * Hypertensive Disorder Status:Active. * Mobility Impairment Status:Active. * Skin Integrity Impairment Risk Status:Active. Plan of Care Follow-up Appointments from 11/09/2015 11:13 AM:* #1 Office appointment: : F/U PCP in 3 weeks * #2 Office appointment: : F/U with Pest Control Service Representative in 2 weeks Treatment Plan from 11/08/2015 11:10 AM:* Care Management Note : Patient was admitted as observation d/t chest pain. Troponin's thus far are negative, and will continue to follow. CXR was negative. An Echo will be checked, and was placed on tele. Work up is in progress, and CM will continue to follow. Procedures No relevant procedures performed. Immunizations No immunizations administered or ordered. Hospital Course Hospital Discharge Instructions How to care for yourself at home from 11/09/2015 11:13 AM:* Discharge Activity : Activity as tolerated,May Shower * Do not drive or operate machinery for: : while on narcotic pain medications * Discharge Diet : As before hospitalization * Call your doctor if: : Fever over 101 F or severe chills,Chest pain or other unexplained symptoms,Tingling or numbness develops,A sudden increase or decrease in weight,You have persistent or worsening symptoms,If you have Heart Failure and you gain 3 pounds within 1 week or your symptoms worsen. (Weigh at home tomorrow morning) * Specific Discharge Teaching Instructions provided: : Yes * Discharge on Warfarin : No Allergies, Adverse Reactions, Alerts * Penicillins causes Severe Anaphylaxis. * No Latex Allergy. * No IV Contrast Allergy. Medication It is the responsibility of the patient or patient event representative to confirm the list of medications with either the patient's personal care provider or the patient's follow-up care provider to ensure the patient has an appropriate list of medications to take at home. Discharge medications Continued medications* aspirin 81 mg tablet,delayed release (/EC), Ordered By : RUSSELL TATE MD Directions: 1 tablet oral daily * bethanechol chloride 25 mg Tablet, Ordered By: RUSSELL TATE MD Directions: 1 tablet oral twice a day * donepezil 5 mg Tablet, Ordered By: RUSSELL TATE MD Directions: 1 tablet oral daily at bedtime * lutein 20 mg Tablet, Ordered By: RUSSELL TATE MD Directions: 1 tablet oral daily * pravastatin 40 mg Tablet, Ordered By: RUSSELL TATE MD Directions: 1 tablet oral daily at bedtime * spironolactone 100 mg Tablet, Ordered By: RUSSELL TATE MD Directions: 1 tablet oral every other day * spironolactone 100 mg Tablet, Ordered By: RUSSELL TATE MD Directions: 0.5 tablet oral every other day * verapamil 80 mg Tablet, Ordered By: RUSSELL TATE MD Directions: 1 tablet oral three times a day * ibuprofen 200 mg Tablet, Ordered By: RUSSELL TATE MD Directions: 2 tablet oral daily at bedtime PRN pain Changed medications* omeprazole magnesium 20 mg capsule,delayed release(DR/EC), Ordered By: RUSSELL TATE MD Directions: 1 capsule oral daily PRN acid reflux Stopped medications* stool softener OTC 1 capsule oral daily
--- OUTSIDE RECORDS SUMMARY | 2017-01-21 17:53 | XMS REPORT | Summary of Care ---
Author Author Ramin Nam M.D. Organization Unknown Address [address] [place], [place] [id number] Phone Unavailable Care Team Providers Care Telegraphic Typewriter Repairer Name Role Phone Rosas Robins, DALJIT, ,, [...] Tablet * Refills: 0 * Started 18-Aug-2012 ActiveBethanechol Chloride 25 MG Oral Tablet TAKE ONE TABLET BY MOUTH ONCE DAILY * Quantity: 90 Refills: 3 Fredy Pillai M.D., FACS, , * Started 17-May-2014 ActiveDonepezil HCl - 10 MG Oral Tablet TAKE 1 TABLET DAILY WITH FOOD EACH MORNING * Quantity: 1 Refills: 6 Ramin Nam M.D.* Started 19-Nov-2015 [id number] Tablet Bottle Allergies and Adverse Reactions Name [...]
--- OUTSIDE RECORDS SUMMARY | 2017-01-21 17:53 | XMS REPORT | Summary of Care ---
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 Quantity: 45 Ramin Nam M.D. Start Active Verapamil HCl - 80 MG Oral Tablet TAKE ONE TABLET BY MOUTH THREE TIMES DAILY * Quantity: 90 Refills: 0 Ramin Nma M.D. Start 09-Jun-2016 Active Pravastatin Sodium 40 MG Oral Tablet TAKE 1 TABLET DAILY AT BEDTIME. * Quantity: 90 Refills: 1 Ramin Nam M.D. Start 09-Sep-2009 Active PriLOSEC OTC 20 MG Oral Tablet Delayed Release TAKE 1 TABLET TWICE DAILY. * Refills: 0 * Start 09-Sep-2009 Active Lutein 20 MG [...] M.D. Start 19-Nov-2015 Active 30 Tablet Bottle Tylenol 325 MG Oral Tablet TAKE 2 TABLETS EVERY 6 HOURS NEEDED. * Refills: 0 Ramin Nam M.D. Start 22-Jul-2016 Active Allergies and Adverse Reactions Name Dates [...] 23-Jun-2016 Prevnar 13 Intramuscular Suspension Lot #: [id number] on: 22-Jul-2016 Family History Name Dates Details [...] documented Planned Encounters Appointment; Provider: Fredy Pillai M.D.|DALJIT Winn|DALJIT Robins, On 06-Jul-2017 08:45 Appointment; Provider: Ko [...] documented On 22-Jul-2016 10:15 Appointment; Fredy Pillai M.D.|F.A.C.S.|Julienne,ALIRIO,DALJIT, Encounter Diagnosis: Problem not documented On 05-Jul-2016 [...] documented On 05-Nov-2015 08:15 Appointment; Fredy Pillai M.D.|F.A.C.S.|Julienne,ALIRIO,DALJIT, Encounter Diagnosis: Problem not documented On 02-Jul-2015 08:45 Appointment; Yared Nazario M.D. Encounter Diagnosis: Problem not documented On 31-Oct-2014 14:15"
--- OUTSIDE RECORDS SUMMARY | 2017-01-21 17:53 | XMS REPORT | Summary of Care ---
Author Author Rosas Robins, DALJIT, ,, Fredy M Organization Unknown Address [address] [place], [place] [id number] Phone Unavailable Care Team Providers Care Wax Ball Knock Out Worker Name Role Phone Rosas Robins, DALJIT, ,, Oseas Unavailable Unavailable Rachana Robins, Mariah Unavailable Unavailable Jude Arvizu M.D. Unavailable Unavailable Terrence Kulkarni PP Unavailable Unavailable Unavailable Functional Status Functional Status Health Issues* Name Dates Details Functional status health issues are not documented Status: Cognitive Status Health Issues* Name Dates Details Cognitive status health issues are not documented Status: Problems Name Dates Details History of allergy (V15.09, Z88.9) Status: Active Angioedema (995.1, T78.3XXA) Status: Active Osteoarthritis (715.90, M19.90) Status: Active Urticaria (708.9, L50.9) Status: Active Essential hypertension (401.9, I10) Status: Active Esophageal reflux (530.81, K21.9) Status: Active Hyperlipidemia (272.4, E78.5) Status: Active Peripheral neuropathy (356.9, G62.9) Status: Active Urinary retention (788.20, R33.9) Status: Active Urinary tract infection (599.0, N39.0) Status: Active Seborrheic keratosis (702.19, L82.1) Status: Active Medications Name Dates Details Spironolactone 50 MG Oral Tablet Pamella Arvizu M.D.* Started ActiveVerapamil HCl - 80 MG Oral Tablet TAKE 1 TABLET 3 TIMES DAILY. * Refills: 0 * Started ActiveDaily Multiple Vitamins/Min Oral Tablet * Refills: 0 * Started ActiveCalcium 600+D 600-400 MG-UNIT Oral Tablet * Refills: 0 * Started ActivePravastatin Sodium 40 MG Oral Tablet TAKE 1 TABLET DAILY AT BEDTIME. * Refills: 0 * Started 09-Sep-2009 ActivePriLOSEC OTC 20 MG Oral Tablet Delayed Release TAKE 1 TABLET DAILY. * Refills: 0 * Started 09-Sep-2009 ActiveEpiPen 2-Silvio 0.3 MG/0.3ML KYLAH EpiPen 2-silvio 0.3mg/0.3ml inection deviceuse has instructed. * Quantity: 1 Refills: 1 Mariah Reich M.D.* Started ActiveIbuprofen 100 MG/5ML Oral Suspension * Refills: [...] ActiveBethanechol Chloride 25 MG Oral Tablet TAKE 1 TABLET Once * Quantity: 30 Refills: 11 Fredy Pillai M.D., FACS, , * Started 17-May-2014 Active Allergies and Adverse Reactions Name Dates Details Biaxin TABS Status: Active Flexeril Status: Active Inderal TABS Status: Active Niacin TABS Status: Active Penicillins Status: Active Vicodin TABS Status: Active Vioxx TABS Status: Active Vytorin TABS Status: Active Past Medical History Name Dates Details History of Actinic keratosis (702.0, L57.0) Status: Resolved History of Intertrigo (695.89, L30.4) [...] not documented Goal Planned Encounters* Appointment; Provider: Yared Nazario On 05-Nov-2015 08:15 * Appointment; Provider: Fredy Pillai On 02-Jul-2015 08:45 * Appointment; Provider: Fredy Pillai On 03-May-2014 07:00 Instructions * Instructions not documented Encounters Appointment; Yared Nazario Encounter Diagnosis: Problem not documented On 31-Oct-2014 14:15 Appointment; Fredy Pillai Encounter Diagnosis: Problem not documented On 28-Jun-2014 08:45 Appointment; Fredy Pillai Encounter Diagnosis: Problem not documented On 17-May-2014 08:30 Appointment; Fredy Pillai Encounter Diagnosis: Problem not documented On 03-May-2014 08:30 Appointment; Pamella Arvizu Encounter Diagnosis: Problem not documented On 29-Oct-2013 14:00
--- OUTSIDE RECORDS SUMMARY | 2017-01-21 17:53 | XMS REPORT ---
Author Author GENERATED, SYSTEM Organization Unknown Address Unknown Phone Unavailable Care Team Providers Care Admission Nurse Coordinator Name Role Phone UNASSIGNED DOCTOR , DOCTOR PP [phone] Reason For Visit Chief Complaint CHEST PAIN Social History Functional Status Vital Signs Results Problems Encounter Diagnosis No relevant problems exist. Additional Problems * Acute Pain Comment:Problem resolved by [facility] Workflow upon Discharge, Status :Resolved. * Chest Pain Comment:Problem resolved by [facility] Workflow upon Discharge, Status :Resolved. * Dyslipidemia Comment:Problem resolved by [facility] Workflow upon Discharge, Status:Resolved. * Fall Risk Comment:Problem resolved by [facility] Workflow upon Discharge, Status: Resolved. * History of Hypertension Comment:Problem resolved by [facility] Workflow upon Discharge, Status:Resolved. * History of TIA Comment:Problem resolved by [facility] Workflow upon Discharge, Status:Resolved. * Hypertensive Disorder Comment:Problem resolved by [facility] Workflow upon Discharge, Status:Resolved. * Mobility Impairment Comment:Problem resolved by [facility] Workflow upon Discharge, Status:Resolved. * Near Syncope Comment:Problem resolved by [facility] Workflow upon Discharge, Status:Resolved. * Skin Integrity Impairment Risk Comment:Problem resolved by [facility] Workflow upon Discharge, Status:Resolved. * Symptomatic Sinus Bradycardia Comment:Problem resolved by [facility] Workflow upon Discharge, Status:Resolved. Encounters Encounter Diagnosis No relevant problems exist. Plan of Care Procedures No relevant procedures performed. Immunizations No immunizations administered or ordered. Hospital Course Hospital Discharge Instructions Allergies, Adverse Reactions, Alerts * Penicillins causes Severe Anaphylaxis. * Latex Allergy has not been assessed. * IV Contrast Allergy has not been assessed. Medication Medication reconciliation has not been performed.
--- OUTSIDE RECORDS SUMMARY | 2017-01-21 17:53 | XMS REPORT | Summary of Care ---
Author Author Blayne Robins, Brooke Organization Unknown Address [address] [place], [place] [id number] Phone Unavailable Care Team Providers Care Stack Matcher Name Role Phone SangeetaOseas tyson Unavailable Unavailable Mell Nam M.D. Unavailable Unavailable Brooke Cisneros M.D. Unavailable Unavailable Nicole Cisneros Unavailable Unavailable Unavailable Unavailable Functional Status Name Dates Details Functional status health issues are not documented Status: Name Dates Details Cognitive status health issues are not documented Status: Problems Name Dates Details Hyperlipidemia (272.4, E78.5) Status: Active Esophageal reflux (530.81, K21.9) Status: Active Peripheral neuropathy (356.9, G62.9) Status: Active Osteoarthritis (715.90, M19.90) Status: Active Urinary retention (788.20, R33.9) Status: Active Neurogenic bladder (596.54, N31.9) Status: Active Dementia in Alzheimer's disease (331.0, G30.9) Status: Active Hypertension (401.9, I10) Status: Active Viral gastroenteritis (008.8, A08.4) Status: Active Aortic stenosis, moderate (424.1, I35.0) Status: Active 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 * Start Active Verapamil HCl - 80 MG Oral Tablet TAKE ONE TABLET BY MOUTH THREE TIMES DAILY * Quantity: 90 Refills: 0 Ramin Nam M.D. * Start 09-Jun-2016 Active Bethanechol Chloride 25 MG Oral Tablet TAKE ONE TABLET BY MOUTH ONCE DAILY * Quantity: 90 Refills: 3 Fredy Pillai * Start 17-May-2014 Active Tylenol 325 MG Oral Tablet TAKE 2 TABLETS EVERY 6 HOURS NEEDED. * Refills: 0 Ramin Nam M.D. * Start 22-Jul-2016 Active Fluticasone Propionate 50 MCG/ACT Nasal Suspension * Refills: 0 * Start 22-Sep-2016 Active Stool Softener 100 MG Oral Tablet * Refills: 0 * Start 18-Aug-2012 Active Lutein 20 MG Oral Tablet * Refills: 0 * Start 18-Aug-2012 Active PriLOSEC OTC 20 MG Oral Tablet Delayed Release TAKE 1 TABLET TWICE DAILY. * Refills: 0 * Start 09-Sep-2009 Active Pravastatin Sodium 40 MG Oral Tablet TAKE 1 TABLET DAILY AT BEDTIME. * Quantity: 90 Refills: 1 Ramin Nam M.D. * Start 09-Sep-2009 Active Donepezil HCl - 10 MG Oral [...] of lumbar spine (721.3, M47.9) Status: Active Dementia in Alzheimer's disease (331.0, [...] Procedures not documented Immunization Name Dates Details Fluzone High-Dose 0.5 ML Intramuscular Suspension Prefilled Syringe on: 23-Jun-2016 Prevnar 13 Intramuscular Suspension Lot #: [id number] on: 22-Jul-2016 Family History Name Dates Details [...] documented Planned Encounters Appointment; Provider: Fredy Pillai M.D.,[facility], On 06-Jul-2017 08:45 Appointment; Provider: Brooke Cisneros M.D. On 05-Nov-2016 13:00 Instructions Name Dates Details Instructions not documented Encounters Appointment; Ko Brothers M.D. Encounter Diagnosis: Problem not documented On 01-Oct-2016 10:45 Appointment; Denny Foster M.D. Encounter Diagnosis: Problem not documented On 22-Sep-2016 14:09 Appointment; Ko Brothers M.D. Encounter Diagnosis: Problem not documented On 01-Sep-2016 14:15 Appointment; Ramin Nam M.D. Encounter Diagnosis: Problem not documented On 24-Aug-2016 13:30 Appointment; Zeeshan Green M.D.|VibhaC.SSean|DALJIT Robins|Julienne,DALJIT, Encounter Diagnosis: Problem not documented On 11-Aug-2016 11:15 Appointment; Zeeshan Green M.D.|VibhaC.SSean|DALJIT Robins|DALJIT Robins, Encounter Diagnosis: Problem not documented On 04-Aug-2016 09:00 Appointment; [facility], Endoscopy Encounter Diagnosis: Problem not documented On 04-Aug-2016 [...] documented On 05-Nov-2015 08:15 Appointment; Fredy Pillai M.D.,DALJIT, Encounter Diagnosis: Problem not documented On 02-Jul-2015 08:45"
--- OUTSIDE RECORDS SUMMARY | 2017-01-21 17:54 | XMS REPORT ---
Author Author GENERATED, SYSTEM Organization Unknown Address Unknown Phone Unavailable Care Team Providers Care Patient Support Assistant Name Role Phone UNASSIGNED DOCTORMD DOCTOR PP [phone] Reason For Visit Reason for Visit from 04/23/2014 1:10 AM:* Pt Stated Reason for Adm : fall, bradycardia Chief Complaint SYNCOPE HYPOTENSION Social History Social History from 04/25/2014 12:30 PM:* Tobacco Use? : Never Smoker Social History from 04/23/2014 1:10 AM:* Tobacco Use? : Never Smoker Functional Status Functional Status from 04/25/2014 9:00 AM:* LOC : Alert * Oriented To : Person,Place,Time,Event * Weight Bearing Status : Full * Assist Level : Independent * # Assists : 1 Functional Status from 04/24/2014 7:47 PM:* LOC : Alert * Oriented To : Person,Place,Time,Event * Weight Bearing Status : Full * Assist Level : Partial * # Assists : 1 Functional Status from 04/24/2014 7:45 AM:* LOC : Alert * Oriented To : Person,Place,Time,Event * Weight Bearing Status : Full * Assist Level : Partial * # Assists : 1 Functional Status from 04/23/2014 11:10 PM:* LOC : Alert * Oriented To : Person,Place,Time,Event * Weight Bearing Status : Full * Assist Level : Independent * # Assists : 1 Functional Status from 04/23/2014 7:21 PM:* LOC : Alert * Oriented To : Person,Place,Time,Event * Weight Bearing Status : Full * Assist Level : Partial * # Assists : 1 Functional Status from 04/23/2014 8:08 AM:* LOC : Alert * Oriented To : Person,Place,Time,Event * Weight Bearing Status : Partial * Assist Level : Partial * # Assists : 1 Functional Status from 04/23/2014 1:10 AM:* LOC : Alert * Oriented To : Person,Place,Time,Event * Weight Bearing Status : Partial * Assist Level : Partial * # Assists : 1 Vital Signs Hospital Vital Signs from 04/25/2014 2:49 PM:* Height : 5/1 ft,in * Temperature : 99.4 F * Pulse : 77 * Respirations : 20 * BP : 168/74 Hospital Vital Signs from 04/25/2014 11:02 AM:* Height : 5/1 ft,in * Temperature : 96.6 F * Pulse : 67 * Respirations : 20 * BP : 160/70 Hospital Vital Signs from 04/25/2014 9:00 AM:* Heart Rate : 70 Hospital Vital Signs from 04/25/2014 7:28 AM:* Height : 5/1 ft,in * Temperature : 98.9 F * Pulse : 65 * Respirations : 20 * BP : 138/62 Hospital Vital Signs from 04/25/2014 3:55 AM:* Weight : 84.5/ kg * Height : 5/1 ft,in Hospital Vital Signs from 04/24/2014 11:48 PM:* Height : 5/1 ft,in * Temperature : 99.8 F * Pulse : 72 * Respirations : 18 * BP : 150/64 Hospital Vital Signs from 04/24/2014 7:47 PM:* Heart Rate : 75 Hospital Vital Signs from 04/24/2014 7:39 PM:* Height : 5/1 ft,in * Temperature : 98.8 F * Pulse : 71 * Respirations : 18 * BP : 152/70 Hospital Vital Signs from 04/24/2014 3:27 PM:* Height : 5/1 ft,in * Temperature : 98.8 F * Pulse : 71 * Respirations : 20 * BP : 155/68 Hospital Vital Signs from 04/24/2014 11:02 AM:* Height : 5/1 ft,in * Temperature : 98.6 F * Pulse : 64 * Respirations : 20 * BP : 118/56 Hospital Vital Signs from 04/24/2014 7:45 AM:* Heart Rate : 64 Hospital Vital Signs from 04/24/2014 7:06 AM:* Height : 5/1 ft,in * Temperature : 98.7 F * Pulse : 55 * Respirations : 20 * BP : 136/62 Hospital Vital Signs from 04/24/2014 3:46 AM:* Weight : 82.3/ kg * Height : 5/1 ft,in Hospital Vital Signs from 04/23/2014 11:12 PM:* Height : 5/1 ft,in * Temperature : 98.2 F * Pulse : 63 * Respirations : 20 * BP : 137/57 Hospital Vital Signs from 04/23/2014 11:10 PM:* Heart Rate : 60 Hospital Vital Signs from 04/23/2014 8:25 PM:* Height : 5/1 ft,in * Temperature : 96.1 F * Pulse : 70 * Respirations : 20 * BP : 133/64 Hospital Vital Signs from 04/23/2014 7:21 PM:* Heart Rate : 72 Hospital Vital Signs from 04/23/2014 3:58 PM:* Height : 5/1 ft,in * Temperature : 98.6 F * Pulse : 72 * Respirations : 20 * BP : 132/62 Hospital Vital Signs from 04/23/2014 11:46 AM:* Height : 5/1 ft,in * Temperature : 97.2 F * Pulse : 54 * Respirations : 20 * BP : 148/69 Hospital Vital Signs from 04/23/2014 10:17 AM:* Height : 5/1 ft,in Hospital Vital Signs from 04/23/2014 8:08 AM:* Heart Rate : 60 Hospital Vital Signs from 04/23/2014 6:10 AM:* Height : 5/1 ft,in * Temperature : 98.1 F * Pulse : 64 * Respirations : 20 * BP : 133/62 Hospital Vital Signs from 04/23/2014 1:10 AM:* Weight : 81.2/ kg * Height : 5/1 ft,in Hospital Vital Signs from 04/23/2014 12:45 AM:* Weight : 81.2/ kg * Height : 5/1 ft,in * Temperature : 98.3 F * Pulse : 69 * Respirations : 20 * BP : 164/77 Results Chemistry from 04/25/2014 4:55 AMSODIUM 142 MMOL/L (136-145 MMOL/L) POTASSIUM 3.8 MMOL/L (3.5-5.1 MMOL/L) CHLORIDE 108 MMOL/L H (98-107 MMOL/L) TCO2 26.8 MMOL/L (21.0-32.0 MMOL/L) ANION GAP 7.2 MMOL/L L (8.0-16.0 MMOL/L) BUN 12 MG/DL (7-18 MG/DL) CREATININE 0.44 MG/DL (0.43-0.83 MG/DL) BUN/CREATININE RATIO 27.3 H (9.1-17.0 ) GLUCOSE 101 MG/DL H (65-99 MG/DL) GFR EST NON AFR MARTINIQUAIS >90 ML/MIN GFRA EST AFR AMER >90 ML/MIN CALCIUM 8.2 MG/DL L (8.5-10.1 MG/DL) Chemistry from 04/23/2014 11:47 AMTROPONIN-I <0.04 (SEE BELOW ) Chemistry from 04/23/2014 5:12 AMSODIUM 141 MMOL/L (136-145 MMOL/L) POTASSIUM 4.2 MMOL/L (3.5-5.1 MMOL/L) CHLORIDE 109 MMOL/L H (98-107 MMOL/L) TCO2 25.0 MMOL/L (21.0-32.0 MMOL/L) ANION GAP 7.0 MMOL/L L (8.0-16.0 MMOL/L) BUN 28 MG/DL H (7-18 MG/DL) CREATININE 0.85 MG/DL H (0.43-0.83 MG/DL) BUN/CREATININE RATIO 32.9 H (9.1-17.0 ) GLUCOSE 124 MG/DL H (65-99 MG/DL) GFR EST NON AFR MARTINIQUAIS 66 ML/MIN GFRA EST AFR AMER 77 ML/MIN CALCIUM 8.9 MG/DL (8.5-10.1 MG/DL) TROPONIN-I <0.04 (SEE BELOW ) CHOLESTEROL 174 MG/DL (50-199 MG/DL) TRIGLYCERIDES 20 MG/DL (0-149 MG/DL) HDL CHOLESTEROL 56 MG/DL (40-60 MG/DL) LDL (CALCULATED) CHOL 114 MG/DL H (0-99 MG/DL) Hematology from 04/25/2014 4:55 AMWBC 6.3 X10e3/UL (3.6-11.2 X10e3/UL) RBC 4.19 X10e6/UL (3.63-4.92 X10e6/UL) HEMOGLOBIN 13.2 G/DL (11.0-14.3 G/DL) HEMATOCRIT 38.4 % (31.2-41.9 %) MCV 91.6 FL (79.0-98.0 FL) MCH 31.5 PG (27.0-33.0 PG) MCHC 34.4 G/DL (32.0-36.0 G/DL) RDW 12.7 % (12.3-17.0 %) RDWSD 40.7 (37.1-47.8 ) PLATELET 154 X10e3/UL L (159-386 X10e3/UL) MPV 7.7 FL (7.4-10.4 FL) AUTOMATED DIFF PERFORMED SEGS 61.5 % LYMPHOCYTES 24.4 % MONOCYTES 11.5 % EOSINOPHILS 1.6 % BASOPHILS 1.0 % ABSOLUTE NEUTROPHILS 3.9 X10e3/UL (1.8-7.8 X10e3/UL) ABSOLUTE LYMPHOCYTES 1.5 X10e3/UL (1.0-3.0 X10e3/UL) ABSOLUTE MONOCYTES 0.7 X10e3/UL (0.3-1.0 X10e3/UL) ABSOLUTE EOSINOPHILS 0.1 X10e3/UL (0.0-0.5 X10e3/UL) ABSOLUTE BASOPHILS 0.1 X10e3/UL (0.0-0.2 X10e3/UL) Urinalysis from 04/23/2014 2:00 PMURINE COLOR DK YELLOW (STRAW/YELL/DK YELL ) URINE APPEARANCE CLEAR (CLEAR ) URINE PH 6.0 (5.0-8.0 ) URINE SPECIFIC GRAVITY 1.010 (<=1.005->=1.030 ) URINE GLUCOSE NEGATIVE MG/DL (NEGATIVE MG/DL) URINE BILIRUBIN NEGATIVE (NEGATIVE ) URINE KETONES NEGATIVE MG/DL (NEGATIVE MG/DL) URINE BLOOD MODERATE A (NEGATIVE ) URINE PROTEIN NEGATIVE MG/DL (NEGATIVE MG/DL) URINE UROBILINOGEN 0.2 EU/DL (0.2-1.0 EU/DL) URINE NITRITES NEGATIVE (NEGATIVE ) *URINE LEUKOCYTES NEGATIVE (NEGATIVE ) MICROSCOPIC EXAM PERFORMED PERFORMED RBC 5-10 /HPF A (0-1 /HPF) SQUAMOUS EP. CELLS FEW /LPF (NEG-FEW /LPF) Microbiology from 04/24/2014 11:10 PM* CULTURE URINE (Preliminary Result) Specimen Number: [id number] Specimen Source: Sample Collection Date/Time: 04/24/2014 11:10 PM CULTURE URINE: No growth at 24 hrs Problems Encounter Diagnosis * Dyslipidemia Status:Active. * History of Hypertension Status:Active. * History of TIA Status:Active. * Near Syncope Status:Active. * Symptomatic Sinus Bradycardia Status:Active. Encounters Encounter Diagnosis * Dyslipidemia Status:Active. * History of Hypertension Status:Active. * History of TIA Status:Active. * Near Syncope Status:Active. * Symptomatic Sinus Bradycardia Status:Active. Plan of Care Follow-up Appointments from 04/25/2014 12:30 PM:* #1 Office appointment: : Dr. Kulkarni * #1 Date/Time : 04/29/2014 11:30 AM * Address # 1 : [place] * #2 Office appointment: : Dr. Pillai *Please call for an appointment in one week * Address # 2 : [facility]: [address], [place]- or Treatment Plan from 04/24/2014 4:59 PM:* Care Management Note : Remains outpatient observation appropriate. Has experienced urinary retention. Urology has been consulted with order for [place] catheter to be placed and urecholine, urine culture ordered. Will continue to follow for inpatient criteria. Treatment Plan from 04/23/2014 9:13 AM:* Care Management Note : Admitted appropriately as outpatient observation with cardiology work up in progress. Will follow for inpatient criteria. Procedures No relevant procedures performed. Immunizations No immunizations administered or ordered. Hospital Course Hospital Discharge Instructions How to care for yourself at home from 04/25/2014 12:30 PM:* Discharge Activity : Activity as tolerated,May Shower,Do not engage in sports, heavy work or heavy lifting until your physician gives permission * Discharge Diet : As before hospitalization * Discharge Wound Care : Keep dressings dry * Call your doctor if: : Fever over 101 F or severe chills,Chest pain or other unexplained symptoms,Tingling or numbness develops,You have persistent or worsening symptoms,If you have Heart Failure and you gain 3 pounds within 1 week or your symptoms worsen. (Weigh at home tomorrow morning) * Specific Discharge Teaching Instructions provided: : Yes * Specific Discharge Teaching Instructions Reviewed: : Other * Discharge on Warfarin : No Allergies, Adverse Reactions, Alerts * Penicillins causes Severe Anaphylaxis. * No Latex Allergy. * No IV Contrast Allergy. Medication It is the responsibility of the patient or patient sales representative metals to confirm the list of medications with either the patient's personal care provider or the patient's follow-up care provider to ensure the patient has an appropriate list of medications to take at home. Discharge medications New medications* HYDROcodone-acetaminophen (Cedar) 5 mg-325 mg Tablet, Ordered By: DAWIT LOVELACE PA-C Directions: 1 tablet oral every four hours PRN pain * bethanechol chloride 25 mg Tablet, Ordered By: DAWIT LOVELACE PA-C Directions: 1 tablet oral twice a day Continued medications* aspirin 325 mg tablet,delayed release (DR/EC), Ordered By : DAWIT LOVELACE PA-C Directions: 1 tablet oral daily with lunch * flaxseed powder oral daily * multivitamin 1 tab oral daily * pravastatin 40 mg Tablet, Ordered By: DAWIT LOVELACE PA-C Directions: 1 tablet oral daily with dinner * stool softener OTC 1 capsule oral daily * verapamil 80 mg Tablet, Ordered By: DAWIT LOVELACE PA-C Directions: 1 tablet oral three times a day Changed medications* ibuprofen 200 mg Tablet, Ordered By: ADWIT LOVELACE PA-C Directions: 1 tablet oral daily before breakfast * ibuprofen 200 mg Tablet, Ordered By: DAWIT LOVELACE PA-C Directions: 2 tablet oral daily at bedtime Stopped medications* spironolactone 100 mg Tablet Directions: 1 tablet oral daily
--- OUTSIDE RECORDS SUMMARY | 2017-01-21 17:54 | XMS REPORT | Referral Summary ---
Author Author [facility] Organization [facility] Address Unknown Phone Unavailable Care Team Providers Care Application Security Developer Name Role Phone Jeannie Kulkarni Primary Care Physician [phone] Encounter Date(s): 02/03/15 - 02/03/15 [facility] [address] [place] [address] ANA Spencer [id number] Discharge Diagnosis: Memory impairment Discharge Diagnosis: Vascular lesion Discharge Diagnosis: Knee osteoarthritis Discharge Disposition: 01-Home or Self Care Attending Physician: Terrence Kulkarni MD Admitting Physician: Terrence Kulkarni MD Vital Signs Most recent to 1 oldest [Reference Range]: Temperature Tympanic 36.8 degC [36.6-38.1 degC] (02/03/15 10:31 AM) Peripheral Pulse 62 bpm Rate [60-100 bpm] (02/03/15 10:31 AM) Blood Pressure 138/80 mmHg [90-140/60-90 mmHg] (02/03/15 10:31 AM) SpO2 98 % (02/03/15 10:31 AM) Problem List Condition Effective Dates Status Health [...] Flax Seed Oil ground meal, 0 Refill(s) Start Date: 04/26/14 Status: Ordered ibuprofen 200 mg oral tablet 1 tabs, Oral, q6hr, 0 Refill(s) Start Date: 04/26/14 Status: Ordered Lutein 20 mg oral tablet 1 tabs, Oral, Daily, # 30 tabs, 0 Refill(s) Start Date: 04/26/14 Status: Ordered pravastatin 40 mg oral tablet See Instructions, TAKE ONE TABLET BY MOUTH ONCE DAILY, # 90 tabs, eRx: [id number], TAKE ONE TABLET BY MOUTH ONCE DAILY Start Date: 07/29/15 Status: Ordered spironolactone 100 mg oral tablet See Instructions, TAKE ONE TABLET BY MOUTH ONCE DAILY ALTERNATING WITH ONE- HALF TABLET EVERY OTHER DAY., # 72 tabs, eRx: [facility], TAKE ONE TABLET BY MOUTH ONCE DAILY ALTERNATING WITH ONE-HALF TABLET EVERY OTHER DAY. Start Date: 07/29/15 Status: Ordered verapamil 80 mg oral tablet See Instructions, TAKE ONE TABLET BY MOUTH THREE TIMES DAILY, # 270 tabs, eRx: [facility], TAKE ONE TABLET BY MOUTH THREE TIMES DAILY Start Date: 07/29/15 Status: Ordered Results Hematology Most recent to 1 oldest [Reference Range]: WBC [4.8-10.8 5.1 10*3/uL 10*3/uL] (02/03/15 11:57 AM) RBC [4.00-5.20 4.88 10*6/uL 10*6/uL] (02/03/15 11:57 AM) Hgb [12.0-16.0 14.7 gm/dL gm/dL] (02/03/1557 AM) Hct [37.0-47.0 %] 44.2 % (02/03/15 AM) MCV [82.0-99.0 fL] 90.6 fL (02/03/1557 AM) MCH [27.0-32.0 pg] 30.1 pg (02/03/1557 AM) MCHC [32.0-36.0 33.3 gm/dL gm/dL] (02/03/1557 AM) RDW [11.5-14.5 %] 12.8 % (02/03/15:57 AM) Platelet [150-400 204 10*3/uL 10*3/uL] (02/03/15:57 AM) MPV [8.8-14.8 fL] 10.1 fL (02/03/15:57 AM) Immature 0.2 % Granulocytes (02/03/15) [0.0-1.0 %] Neutrophils [51-75 51 % %] (02/03/15:57 AM) Lymphocytes [20-46 39 % %] (02/03/15:57 AM) Monocytes [4-11 %] 8 % (02/03/15:57 AM) Eosinophils [0-4 %] 2 % (02/03/15:57 AM) Basophils [0-2 %] 1 % (02/03/15:57 AM) Neutro Absolute 2.59 THOUS [1.90-7.00 THOUS] (02/03/15:57 AM) Lymph Absolute 1.97 THOUS [0.80-3.30 THOUS] (02/03/15:57 AM) Chase Absolute 0.42 THOUS [0.30-1.00 THOUS] (02/03/15:57 AM) Eos Absolute 0.08 THOUS [0.00-0.50 THOUS] (02/03/15 11:57 AM) Baso Absolute 0.03 THOUS [0.00-0.20 THOUS] (02/03/15 11:57 AM) Sed Rate [0-23 8 mm/hr mm/hr] (02/03/15:57 AM) Chemistry Most recent to 1 oldest [Reference Range]: Sodium Lvl [135-144 142 mEq/L mEq/L] (02/03/1557 AM) Potassium Lvl 4.1 mEq/L [3.5-5.2 mEq/L] (02/03/1557 AM) Chloride [99-111 107 mEq/L mEq/L] (02/03/15 AM) CO2 [22-31 mEq/L] 26 mEq/L (02/03/15 AM) AGAP [3-20] 9 (02/03/1557 AM) BUN [10-20 mg/dL] 25 mg/dL *HI* (02/03/15) Glucose Lvl [70-99 89 mg/dL mg/dL] (02/03/15 AM) Creatinine Lvl 0.62 mg/dL [0.57-1.11 mg/dL] (02/03/15 AM) eGFR [>60 mL/min] >60 mL/min 1 (02/03/15) Calcium Lvl 9.4 mg/dL [8.9-10.5 mg/dL] (02/03/1557 AM) Albumin Lvl [3.4-4.8 4.2 gm/dL gm/dL] (02/03/15 AM) Total Protein 6.3 gm/dL [6.2-8.1 gm/dL] (02/03/15 AM) Globulin [1.8-4.0 2.1 gm/dL gm/dL] (02/03/15 AM) ALT [0-55 U/L] 14 U/L (02/03/15 AM) AST [5-34 U/L] 19 U/L (02/03/15:57 AM) Alk Phos [40-150 61 U/L U/L] (02/03/15 AM) Bili Total [0.2-1.2 0.4 mg/dL mg/dL] (02/03/15:57 AM) RBC Folate 312.9 ng/mL uncorrected (02/03/15:57 AM) Folate, RBC 708 ng/mL [305-1102 ng/mL] (02/03/15 11:57 AM) Vitamin B12 Lvl 395 pg/mL [213-816 pg/mL] (02/03/15 11:57 AM) TSH [0.35-4.94] 1.34 (02/03/15 11:57 AM) 1Result Comment: Multiply eGFR results by 1.21 for race. Immunizations Vaccine Date Refusal Reason influenza virus vaccine, inactivated 07/26/15 influenza virus vaccine, inactivated 07/09/14 influenza virus vaccine, live 07/18/13 influenza virus vaccine, live 08/04/12 pneumococcal 23-polyvalent vaccine 12/04/03 tetanus-diphth toxoids (Td) adult/adol 08/03/05 zoster vaccine live 06/27/12 Procedures Procedure Date Related Diagnosis Body Site Vasovagal syncope1 2013 Cataract extraction2 2013 Colonoscopy3 02/18/12 Colonoscopy - Diverticuli 2006 Hernia repair4 1998 Repair of ventral hernia [...] Patient Education Author: Terrence Kulkarni MD Date: 02/03 Family Medicine Confusion Confusion is the inability to think with your usual speed or clarity. Confusion may come on quickly or slowly over time. How quickly the confusion comes on depends on the cause. Confusion can be due to any number of causes. CAUSES Concussion, head injury, or head trauma. Seizures. Stroke. Fever. Senility. Heightened emotional states like rage or terror. Mental illness in which the person loses the ability to determine what is real and what is not (hallucinations ). Infections. Toxic effects from alcohol, drugs, or prescription medicines. Dehydration and an imbalance of salts in the body (electrolytes ). Lack of sleep. Low blood sugar (diabetes ). Low levels of oxygen (for example from chronic lung disorders). Drug interactions or other medication side effects. Nutritional deficiencies, especially niacin, thiamine, vitamin C, or vitamin B. Sudden drop in body temperature (hypothermia ). Illness in the elderly. Constipation can result in confusion. An elderly person who is hospitalized may become confused due to change in daily routine. SYMPTOMS People often describe their thinking as cloudy or unclear when they are confused. Confusion can also include feeling disoriented. That means you are unaware of where or who you are. You may also not know what the date or time is. If confused, you may also have difficulty paying attention, remembering and making decisions. Some people also act aggressively when they are confused. DIAGNOSIS The medical evaluation of confusion may include: Blood and urine tests. X-rays. Brain and nervous system tests. Analyzing your brain waves (electroencphalogram or EEG ). A special X-ray (MRI ) of your head or other special studies. Your physician will ask questions such as: Do you get days and nights mixed up? Are you awake during regular sleep times? Do you have trouble recognizing people? Do you know where you are? Do you know the date and time? Does the confusion come and go? Is the confusion quickly getting worse? Has there been a recent illness? Has there been a recent head injury? Are you diabetic? Do you have a lung disorder? What medication are you taking? Have you taken drugs or alcohol? TREATMENT An admission to the hospital may not be needed, but a confused person should not be left alone. Stay with a family member or friend until the confusion clears. Avoid alcohol, pain relievers or sedative drugs until you have fully recovered. Do not drive until your caregiver says it is okay. HOME CARE INSTRUCTIONS What family and friends can do: To find out if someone is confused ask him or her their name, age, and the date. If the person is unsure or answers incorrectly, he or she is confused. Always introduce yourself, no matter how well the person knows you. Often remind the person of his or her location. Place a calendar and clock near the confused person. Talk about current events and plans for the day. Try to keep the environment calm, quiet and peaceful. Make sure the patient keeps follow up appointments with their physician. PREVENTION Ways to prevent confusion: Avoid alcohol. Eat a balanced diet. Get enough sleep. Do not become isolated. Spend time with other people and make plans for your days. Keep careful watch on your blood sugar levels if you are diabetic. SEEK IMMEDIATE MEDICAL CARE IF: You develop severe headaches, repeated vomiting, seizures, blackouts or slurred speech. There is increasing confusion, weakness, numbness, restlessness or personality changes. You develop a loss of balance, have marked dizziness, feel uncoordinated or fall. You have delusions, hallucinations or develop severe anxiety. Your family members think you need to be rechecked. Document Released: 10/27/2005 Document Revised: 12/11/2012 Document Reviewed: ExitCare Patient Information 2014 [employer]. Follow Up With: Where: When: Terrence Kulkarni [address] [place] [address] Drive; [address] [place], [place] [id number] Business (1) In 3 months 05/06/2015 Comments: Extracted from: Title: Office Visit Note Author: Terrence Kulkarni MD Date: 02/03/15 Assessment/Plan Knee osteoarthritis She does not have an acute change in symptoms. This we followed at the present time. Ordered: Office Visit Level 4 Est 24026 Memory impairment Her score on the any mental status exam was the same as last year. Laboratory studies will be obtained. Ordered: CBC w/ Differential Comprehensive Metabolic Panel Office Visit Level 4 Est 93023 RBC Folate Sedimentation Rate TSH 3rd Generation Vitamin B12 Level Vascular lesion She will be scheduled to see Dr. Bolanos. Ordered: Office Visit Level 4 Est 88882
--- OUTSIDE RECORDS SUMMARY | 2017-01-21 17:54 | XMS REPORT | Summary of Care ---
Author Author Blayne Robins, Brooke Organization Unknown Address [address], [place] [id number] Phone Unavailable Care Team Providers Care Salesperson Recreational Vehicles Name Role Phone SangeetajahOseas Unavailable Unavailable Mell Nam M.D. Unavailable Unavailable Brooke Cisneros M.D. 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 * Start 05-Nov-2016 Active Allergies and Adverse Reactions Name Dates [...] 23-Jun-2016 Prevnar 13 Intramuscular Suspension Lot #: [id number] on: 22-Jul-2016 Family History Name Dates Details Family history of kidney stones (V18.69, Z84.1) Status: Active Name Dates Details Family history of Hay Fever Status: Active Social History Name Dates Details - Status: Name Dates Details Never smoker Vital Signs Date Test Result Details 05-Nov-2016 13:18 BP Systolic 136 mm[Hg] Status: [...] documented Planned Encounters Appointment; Provider: Fredy Pillai M.D.,[facility], On 06-Jul-2017 08:45 Appointment; Provider: Brooke Cisneros M.D. On 01-Dec-2016 12:30 Interventions Provided Medication Changes* Donepezil HCl - 10 MG Oral Tablet - Stop * Lansoprazole 15 MG Oral Capsule Delayed Release - Start * Namzaric 7 & 14 & 21 &28 -10 MG Oral Capsule ER 24 Hour Therapy Pack - Start * PriLOSEC OTC 20 MG Oral Tablet Delayed Release - Stop Instructions Name Dates Details Instructions not documented Encounters Appointment; Ko Brothers M.D. Encounter Diagnosis: Problem not documented On 01-Oct-2016 10:45 Appointment; Denny Foster M.D. Encounter Diagnosis: Problem not documented On 22-Sep-2016 14:09 Appointment; Ko Brothers M.D. Encounter Diagnosis: Problem not documented On 01-Sep-2016 14:15 Appointment; Ramin Nam M.D. Encounter Diagnosis: Problem not documented On 24-Aug-2016 13:30 Appointment; Zeeshan Green M.D.|VibhaC.SSean|Julienne,DALJIT|Julienne,DALJIT, Encounter Diagnosis: Problem not documented On 11-Aug-2016 11:15 Appointment; Zeeshan Green M.D.|[facility]Julienne,DALJIT|Julienne,DALJIT, Encounter Diagnosis: Problem not documented On 04-Aug-2016 09:00 Appointment; Mehrdad Laura Encounter Diagnosis: Problem not documented On 04-Aug-2016 08:30 Appointment; Ramin Nam M.D. Encounter Diagnosis: Problem not documented On 22-Jul-2016 10:15 Appointment; Fredy Pillai M.D.,FACS, Encounter Diagnosis: Problem not documented On 05-Jul-2016 [...] documented On 05-Nov-2015 08:15 Appointment; Fredy Pillai M.D.,[facility], Encounter Diagnosis: Problem not documented On 02-Jul-2015 08:45"
--- OUTSIDE RECORDS SUMMARY | 2017-01-21 17:54 | XMS REPORT | Summary of Care ---
Author Author Ramin Nam M.D. Organization Unknown Address Unknown Phone Unavailable Care Team Providers Care Die Repairer Trimmer Dies Name Role Phone Rosas Robins, FACS, ,, M Unavailable Unavailable Viv Robins, W Unavailable Unavailable Ramin Nam Unavailable Unavailable Unavailable [...] Aortic stenosis, moderate (424.1, I35.0) Status: Active Medications Name Dates Details Aldactone 100 MG Oral Tablet TAKE 1 TABLET DAILY WITH BREAKFAST. * Start Active Verapamil HCl - 80 MG Oral Tablet TAKE 1 TABLET 3 TIMES DAILY. * Quantity: 90 Refills: 3 Ramin Nam M.D. * Start Active Daily Multiple Vitamins/Min Oral Tablet * Refills: 0 * Start Active Calcium 600+D 600-400 MG-UNIT Oral Tablet * Refills: 0 * Start Active Pravastatin Sodium 40 MG Oral Tablet TAKE 1 TABLET DAILY AT BEDTIME. * Refills: 0 * Start 09-Sep-2009 Active PriLOSEC OTC 20 MG Oral Tablet Delayed Release TAKE 1 TABLET DAILY. * Refills: 0 * Start 09-Sep-2009 Active Ibuprofen 100 MG/5ML Oral Suspension * Refills: 0 * Start 13-Aug-2011 Active Aspirin 325 MG Oral Tablet * Refills: 0 * Start 18-Aug-2012 Active Lutein 20 MG Oral Tablet * Refills: 0 * Start 18-Aug-2012 Active Vitamin C 500 MG Oral Tablet * Refills: [...] of Care Name Dates Details Planned Observations BASIC METABOLIC PROFILE 1210 On 08-May-2016 Intent Planned Goals not documented Planned Encounters Appointment; Provider: Fredy Pillai M.D.|Tatum,ALIRIO,DLAJIT, On 05-Jul-2016 08:15 Appointment; Provider: Ramin Nam M.D. On 20-May-2016 10:30 Instructions Name Dates Details Instructions not documented Encounters Appointment; Deacon Camarena D.O. Encounter Diagnosis: Problem not documented On 26-Nov-2015 08:20 Appointment; Ramin Nam M.D. Encounter Diagnosis: Problem not documented On 19-Nov-2015 11:00 Appointment; Yared Nazario M.D. Encounter Diagnosis: Problem not documented On 05-Nov-2015 08:15 Appointment; Fredy Pillai M.D.|Yobani|Julienne,ALIRIO,DALJIT, Encounter Diagnosis: Problem not documented On 02-Jul-2015 08:45 Appointment; Yared Nazario M.D. Encounter Diagnosis: Problem not documented On 31-Oct-2014 14:15 Appointment; Fredy Pillai M.D.|ALIRIO Winn,DALJIT, Encounter Diagnosis: Problem not documented On 28-Jun-2014 08:45"
--- OUTSIDE RECORDS SUMMARY | 2017-01-21 17:54 | XMS REPORT | Summary of Care ---
Author Author Brooke Cisneros M.D. Organization Unknown Address [address] [place], [place] [id number] Phone Unavailable Care Team Providers Care Machine Strap Buckler Name Role Phone Oseas Pillai Unavailable Unavailable Mell Nam M.D. Unavailable Unavailable [...] Active Viral gastroenteritis (008.8, A08.4) Status: Active Urge incontinence (788.31, N39.41) Status: [...] Status: Active Hypertension (401.9, I10) Status: Active Visual hallucinations (368.16, R44.1) Status: Active Cognitive and behavioral changes (799.59, R41.89) Status: Active Medications Name Dates Details Spironolactone 50 MG Oral Tablet Take 1 1/2 tablets daily (75 mg qd) Quantity: 60 Brooke Cisneros M.D. * Start Active Verapamil HCl - 80 MG Oral Tablet TAKE ONE TABLET BY MOUTH THREE TIMES DAILY * Quantity: 90 Refills: 0 Ramin Nam M.D. * Start 09-Jun-2016 Active Pravastatin Sodium 40 MG [...] * Refills: 0 * Start 01-Dec-2016 Active Donepezil HCl - 10 MG Oral Tablet TAKE 1 TABLET DAILY DIRECTED. * Quantity: 30 Refills: 0 Brooke Cisneros M.D. * Start 10-Dec-2016 Active QUEtiapine Fumarate 25 MG Oral Tablet TAKE 1 TABLET AT BEDTIME. * Quantity: 30 Refills: 0 Brooke Cisneros M.D. Start 10-Dec-2016 Active Allergies and Adverse Reactions Name Dates [...] 23-Jun-2016 Prevnar 13 Intramuscular Suspension Lot #: [id number] on: 22-Jul-2016 Family History Name Dates Details Family history of kidney stones (V18.69, Z84.1) Status: Active Name Dates Details Family history of Hay Fever Status: Active Social History Name Dates Details - Status: Name Dates Details Never smoker Vital Signs Date Test Result Details 20-Dec-2016 16:03 BP Systolic 146 mm[Hg] Status: Comments: Location: ; Position: BP Diastolic 82 mm[Hg] Status: Comments: Location: ; Position: Heart Rate 84 /min Status: Comments: Location: ; Weight 155 lb Status: Body Mass Index Calculated 29.29 kg/m2 Status: Body Surface Area Calculated 1.7 m2 Status: 10-Dec-2016 16:00 BP Systolic 138 mm[Hg] Status: Comments: Location: ; Position: BP Diastolic 76 mm[Hg] Status: Comments: Location: ; Position: Heart Rate 80 /min Status: Comments: Location: ; Physical Findings 16 Status: Comments: Respiration Height 61 in Status: Weight 157 lb Status: Body Mass Index Calculated 29.67 kg/m2 Status: Body Surface Area Calculated 1.7 m2 Status: 01-Dec-2016 09:08 BP Systolic 142 mm[Hg] Status: Comments: Location: ; Position: BP Diastolic 80 mm[Hg] Status: Comments: Location: ; Position: Temperature 98 f Status: Heart Rate 76 /min Status: Comments: Location: ; Physical Findings 18 Status: Comments: Respiration Weight 155 lb Status: Body Mass Index Calculated 28.35 kg/m2 Status: Body Surface Area Calculated 1.72 m2 Status: Results Date Description Value Details 20-Dec-2016 17:11 Urinalysis, Reflex to Microscopic or Culture PRN 8005 pH 6.0 Range: 5.0-7.5 SP GRAVITY 1.020 Range: 1.010-1.030 APPEARANCE CLEAR Range: Clear COLOR YELLOW Range: Straw-Yellow PROTEIN NEGATIVE mg/dL Range: Negative-Trace GLUCOSE NEGATIVE mg/dL Range: Negative KETONE NEGATIVE mg/dL Range: Negative BILIRUB NEGATIVE Range: Negative BLOOD NEGATIVE Range: Negative UROBIL 0.2 EU/dL Range: 0.2-1.0 NITRITE NEGATIVE Range: Negative LEUK NEGATIVE Range: Negative 17:16 CBC w/ Auto Diff 7150 WBC 6.4 K/uL Range: 4.5-11.0 RBC 5.12 mil/uL (Above high threshold) Range: 3.60-5.00 HGB 16.0 g/dL Range: 12.0-16.0 HCT 48.3 % (Above high threshold) Range: 36.0-48.0 MCV 94.3 fL Range: 80.0-99.0 MCH 31.2 pg Range: 27.3-32.5 MCHC 33.1 % Range: 32.0-36.0 RDW 14.2 % Range: 11.6-14.8 PLATELETS 224 K/uL Range: 150-400 MPV 7.2 fL Range: 6.0-11.0 %NEUTRO 62.8 % Range: 37.0-80.0 %LYMPHS 27.5 % Range: 13.0-50.0 %MONO 5.3 % Range: 0.0-12.0 %EOS 1.1 % Range: 0.0-7.0 %BASO 0.9 % Range: 0.0-2.5 %IRVING 2.3 % Range: 0.0-5.0 NEUTRO 4.0 K/uL Range: 2.0-6.9 LYMPHS 1.8 K/uL Range: 0.6-3.4 MONOS 0.3 K/uL Range: 0.0-0.9 EOS 0.1 K/uL Range: 0.0-0.7 BASO 0.1 K/uL Range: 0.0-0.2 17:25 Comprehensive Metabolic Panel 1212 SODIUM 138 mmol/L Range: 133-144 POTASSIUM 5.0 mmol/L Range: 3.5-5.1 CHLORIDE 102 mmol/L Range: 98-110 CARBON DIOXIDE 30.2 mmol/L Range: 23.0-33.0 ANION GAP 6 mmol/L Range: 6-16 BUN 25 mg/dL (Above high threshold) Range: 7-18 CREATININE, SERUM 0.89 mg/dL Range: 0.55-1.02 BUN:CREATININE RATIO 28 EST GFR, >60 ml/min Range: >60 EST GFR, NON-AFR MALTESE >60 ml/min Range: >60 Comments: EST GFR is reported in ml/min per 1.73 m2 of body surface area. ----- GLUCOSE 104 mg/dL (Above high threshold) Range: 70-100 ALK PHOSPHATASE 62 U/L Range: 46-116 TOTAL BILIRUBIN 0.30 mg/dL Range: 0.20-1.00 AST 24 U/L Range: 8-35 ALT 30 U/L Range: 14-59 ALBUMIN 3.8 g/dL Range: 3.4-5.0 TOTAL PROTEIN 7.3 g/dL Range: 6.4-8.2 A/G RATIO 1.1 units Range: 1.0-1.8 CALCIUM 9.1 mg/dL Range: 8.5-10.1 21-Dec-2016 08:44 FREE T4 3604 FREE T4 1.15 ng/dL Range: 0.80-1.67 08:44 THYROID STIM. HORMONE 3602 THYROID STIM. HORMONE 1.777 uIU/mL Range: 0.550-4.780 Comments: No established reference ranges for infants and children <2 years of age----- Plan of Care Name Dates Details Planned Observations Planned Goals not documented Planned Encounters Appointment; Provider: Brooke Cisneros M.D. On 23-Feb-2017 08:00 Appointment; Provider: Schedule Radiology On 10-Feb-2017 14:30 Appointment; Provider: Keri Barraza A.P.R.N. On 21-Jan-2017 10:00 Appointment; Provider: Brooke Cisneros M.D. On 06-Jan-2017 13:45 Interventions Provided Labs/Procedures/Imaging* CBC w/ Auto Diff 7150; Done: Dec 20 2016 5:01PM * Comprehensive Metabolic Panel 1212; Done: Dec 20 2016 5:01PM * FREE T4 3604; Done: Dec 20 2016 5:01PM * THYROID STIM. HORMONE 3602; Done: Dec 20 2016 5:01PM * Urinalysis, Reflex to Microscopic or Culture PRN 8005; Done: Dec 20 2016 5: 02PM Instructions Name Dates Details Instructions not documented Encounters Appointment; Brooke Cisneros M.D. Encounter Diagnosis: Problem not documented On 10-Dec-2016 15:45 Appointment; Brooke Cisneros M.D. Encounter Diagnosis: Problem not documented On 01-Dec-2016 12:30 Appointment; Brooke Cisneros M.D. Encounter Diagnosis: Problem not documented On 05-Nov-2016 13:00 Appointment; Ko Brothers M.D. Encounter Diagnosis: Problem not documented On 01-Oct-2016 10:45 Appointment; Denny Foster M.D. Encounter Diagnosis: Problem not documented On 22-Sep-2016 14:09 Appointment; Ko Brothers M.D. Encounter Diagnosis: Problem not documented On 01-Sep-2016 14:15 Appointment; Ramin Nam M.D. Encounter Diagnosis: Problem not documented On 24-Aug-2016 13:30 Appointment; Zeeshan Green M.D.|Tian.CSeanSSean|DALJIT Robins|Julienne,DALJIT, Encounter Diagnosis: Problem not documented On 11-Aug-2016 11:15 Appointment; Zeeshan Green M.D.|Yobani|DALJIT Robins|Julienne,DALJIT, Encounter Diagnosis: Problem not documented On 04-Aug-2016 09:00 Appointment; Keya, Mehrdad Encounter Diagnosis: Problem not documented On 04-Aug-2016 08:30 Appointment; Ramin Nam M.D. Encounter Diagnosis: Problem not documented On 22-Jul-2016 10:15 Appointment; Fredy Pillai M.D., FACS, Encounter Diagnosis: Problem not documented On 05-Jul-2016 [...]
--- OUTSIDE RECORDS SUMMARY | 2017-01-21 17:54 | XMS REPORT | Referral Summary ---
Author Author [facility] Organization [facility] Address Unknown Phone Unavailable Care Team Providers Care Bulking Machine Operator Name Role Phone Flo Pineda Primary Care Physician [phone] Encounter VC Date(s): 03/05/15 - 03/05/15 [facility] [address] [place] [address] ANA [place] [address] Discharge Diagnosis: Hemangioma Discharge Disposition: 01-Home or Self Care Attending Physician: Castro Stephens MD Admitting Physician: Castro Stephens MD Referring Physician: Terrence Kulkarni MD Vital Signs Most recent to 1 oldest [Reference Range]: Temperature Tympanic 36.8 degC [36.6-38.1 degC] (03/05/15 1:52 PM) Peripheral Pulse 76 bpm Rate [60-100 bpm] (03/05/15 1:52 PM) Respiratory Rate 16 br/min [14-20 br/min] (03/05/15 1:52 PM) Blood Pressure 124/72 mmHg [90-140/60-90 mmHg] (03/05/15 1:52 PM) Problem List Condition Effective Dates Status [...] 1960 Active ) Scarlet Active fever(Confirmed) Stress 2006 Active incontinence(Confirm ed) Stroke(Confirmed) 1985 Active TIA(Confirmed) [...] MOUTH ONCE DAILY, # 90 tabs, eRx: [facility], TAKE ONE TABLET BY MOUTH ONCE DAILY Start Date: 07/29/15 Status: Ordered spironolactone 100 mg oral tablet See Instructions, TAKE ONE TABLET BY MOUTH ONCE DAILY ALTERNATING WITH ONE- HALF TABLET EVERY OTHER DAY., # 72 tabs, eRx: [facility], TAKE ONE TABLET BY MOUTH ONCE DAILY ALTERNATING WITH ONE-HALF TABLET EVERY OTHER DAY. Start Date: 07/29/15 Status: Ordered verapamil 80 mg oral tablet See Instructions, TAKE ONE TABLET BY MOUTH THREE TIMES DAILY, # 270 tabs, eRx: [facility], TAKE ONE TABLET BY MOUTH THREE TIMES DAILY Start Date: 07/29/15 Status: Ordered Results No data available for this section Immunizations Vaccine Date Refusal Reason influenza virus vaccine, inactivated 07/26/15 influenza virus vaccine, inactivated 07/09/14 influenza virus vaccine, live 07/18/13 influenza virus vaccine, live 08/04/12 pneumococcal 23-polyvalent vaccine 12/04/03 tetanus-diphth toxoids (Td) adult/adol 11/1/05 zoster vaccine live 06/27/12 Procedures Procedure Date Related Diagnosis Body Site Vasovagal syncope1 2013 Cataract extraction2 2013 Colonoscopy3 02/18/12 Colonoscopy - Diverticuli 2007 Hernia [...] Extracted from: Title: Ambulatory Patient Education Author: Castro Stephens MD Date: 03/05 Family [facility] Jeffers Angioma Jeffers angiomas are noncancerous (benign ) skin growths. They are made up of a clump of blood vessels. They occur most often in people over the age of 30. CAUSES The cause of these skin growths is unknown, but they appear to run in families. SYMPTOMS Jeffers angiomas are smooth, round, red bumps on the skin. They can be as small as a pinhead or as big as a pencil eraser. The color may darken to a purplish red over time. Jeffers angiomas are usually found on the trunk, but they can occur anywhere on the body. They are painless, but they may bleed if they are injured. The bleeding is not serious and will stop when firm pressure is applied. DIAGNOSIS Your caregiver can usually tell what is wrong by performing a physical exam. A tissue sample (biopsy ) may also be taken and examined under a microscope. TREATMENT Usually no treatment is needed for jeffers angiomas. They may be removed for improved appearance (cosmetic ) reasons. Sometimes, jeffers angiomas come back after removal. Removal methods include: Electrocautery. Heat is used to burn the growth off the skin. Cryosurgery. Liquid nitrogen is applied to the growth to freeze it. The growth eventually falls off the skin. Surgery. HOME CARE INSTRUCTIONS If your skin was covered with a bandage, change and remove the bandage as directed by your caregiver. Check your skin regularly for any changes. SEEK MEDICAL CARE IF: You notice any changes or new growths on your skin. Document Released: 11/28/2002 Document Revised: 12/11/2012 Document Reviewed: ExitCare Patient Information 2014 [employer] [facility]. No follow up information was provided. Extracted from: Title: Office Visit Note Author: Castro Stephens MD Date: 03/05/15 Assessment/Plan Hemangioma Ordered: Office Visit Level 1 New [id number] Plan: Excision of probable hemangioma involving left thumb . I informed the patient that it was my clinical intuition that this small lesion involving the her left thumb that has been intermittently bleeding was that of a hemangioma. Recommend that we proceed with excision of this lesion and destruction of the underlying vasculature with use of electrocautery. Patient understood and was proceed. Left thumb was prepped and draped in sterile fashion. Area of concern was injected circumferentially with 1 percent lidocaine without epinephrine. A small elliptical incision on the order about 8 mm in length and about 4 mm in width was made encompassing the area of concern. Underlying tissues were cauterized. The incision was enclosed in a glikda-ah-djiid fashion with 4-0 Prolene. Patient was instructed return back to the office in about 10-14 days for suture removal or sooner if problems should arise. Lesion was submitted for pathologic evaluation.
--- OUTSIDE RECORDS SUMMARY | 2017-01-21 17:54 | XMS REPORT | Summary of Care ---
Author Author Ramin Nam M.D. Organization Unknown Address [address] [place], [place] [id number] Phone Unavailable Care Team Providers Care Lehr Operator Name Role Phone Rosas Robins, DALJIT, ,, [...] Refills: 6 Ramin Nam M.D.* Started 19-Nov-2015 [id number] Tablet Bottle Allergies and Adverse Reactions Name [...] History of Gallbladder Surgery History of Hysterectomy LIPID PROFILE 1184 Ordered:19-Nov-2015 CBC w/ Auto Diff 7150 Ordered:19-Nov-2015 BASIC METABOLIC PROFILE 1210 Ordered:19-Nov-2015 THYROID STIM. HORMONE 3602 Ordered:19-Nov-2015 Immunization Name Dates Details Immunizations not documented Family History natural daughter* Name Dates Details Family history of kidney stones (V18.69, Z84.1) Status: Active Father* Name Dates Details Family history of Hay Fever Status: Active Social History Name Dates Details Smoking Status* Never smoker Vital Signs Date Test Result Details 26-Nov-2015 08:42 BP Systolic 146 mm[Hg] Status: BP Diastolic 78 mm[Hg] Status: Temperature 98.6 f Status: Heart Rate 68 /min Status: O2 SAT 96 % Status: 19-Nov-2015 10:59 BP Systolic 160 mm[Hg] Status: BP Diastolic 80 mm[Hg] Status: Heart Rate 70 /min Status: Height 62 in Status: Weight 166 lb Status: Body Mass Index Calculated 30.36 kg/m2 Status: Body Surface Area Calculated 1.77 m2 Status: Results Date Description Value Details 26-Nov-2015 09:36 Urinalysis, Reflex to Microscopic or Culture PRN 8005 pH 5.5 (Better) Range: 5.0-7.5 SP GRAVITY 1.020 (Better) Range: 1.010-1.030 APPEARANCE CLEAR (Better) Range: Clear COLOR YELLOW (Better) Range: Straw-Yellow PROTEIN NEGATIVE mg/dL (Better) Range: Negative-Trace GLUCOSE NEGATIVE mg/dL (Better) Range: Negative KETONE NEGATIVE mg/dL (Better) Range: Negative BILIRUB NEGATIVE (Better) Range: Negative BLOOD NEGATIVE (Better) Range: Negative UROBIL 0.2 EU/dL (Better) Range: 0.2-1.0 NITRITE NEGATIVE (Better) Range: Negative LEUK NEGATIVE (Better) Range: Negative 09:40 CBC w/ Auto Diff 7150 Comments: Items were attached to this order : Extra TubeManual differential indicated. WBC 8.7 K/uL (Better) Range: 4.5-11.0 RBC 5.13 mil/uL (Above high threshold) Range: 3.60-5.00 HGB 15.7 g/dL (Better) Range: 12.0-16.0 HCT 47.8 % (Better) Range: 36.0-48.0 MCV 93.3 fL (Better) Range: 80.0-99.0 MCH 30.6 pg (Better) Range: 27.3-32.5 MCHC 32.8 % (Better) Range: 32.0-36.0 RDW 12.4 % (Better) Range: 11.6-14.8 PLATELETS 196 K/uL (Better) Range: 150-400 MPV 7.5 fL (Better) Range: 6.0-11.0 09:54 Manual Differential 7400 Comments: Items were attached to this order: Extra Tube SEGS 82 % (Above high threshold) Range: 37-80 BANDS 5 % (Better) Range: 0-7 LYMPH 11 % (Below low threshold) Range: 13-50 MONO 2 % (Better) Range: 0-12 EOSIN 0 % (Better) Range: 0-7 BASO 0 % (Better) Range: 0-3 AGUILA LYMPH 0 % (Better) Range: 0-0 META 0 % (Better) Range: 0-0 MYELO 0 % (Better) Range: 0-0 PRO 0 % (Better) Range: 0-0 BLAST 0 % (Better) Range: 0-0 NUC RBC 0 /100 WBC (Better) Range: 0-0 SMUDGE 0 /100 WBC (Better) PLATELET Adequate (Better) Range: Adequate 09:56 Comprehensive Metabolic Panel 1212 Comments: Items were attached to this order: Extra Tube SODIUM 142 mmol/L (Better) Range: 133-144 POTASSIUM 3.9 mmol/L (Better) Range: 3.5-5.1 CHLORIDE 105 mmol/L (Better) Range: 98-110 CARBON DIOXIDE 27.6 mmol/L (Better) Range: 23.0-33.0 ANION GAP 9 mmol/L (Better) Range: 6-16 BUN 23 mg/dL (Above high threshold) Range: 7-18 CREATININE, SERUM 0.64 mg/dL (Better) Range: 0.55-1.02 Comments: Please note new reference ranges effective 2015.----- BUN:CREATININE RATIO 36 (Better) EST GFR, >60 ml/min (Better) Range: >60 EST GFR, NON-AFR [place] R[place] >60 ml/min (Better) Range: >60 Comments: EST GFR is reported in ml/min per 1.73 m2 of body surface area. For -Welsh, please multiple result by 1.2.----- GLUCOSE 108 mg/dL (Above high threshold) Range: 70-100 ALK PHOSPHATASE 71 U/L (Better) Range: 46-116 TOTAL BILIRUBIN 0.40 mg/dL (Better) Range: 0.20-1.00 AST 15 U/L (Better) Range: 8-35 ALT 25 U/L (Better) Range: 14-59 Comments: Please note new reference ranges. Effective 12/12/2014.----- ALBUMIN 3.5 g/dL (Better) Range: 3.4-5.0 TOTAL PROTEIN 6.9 g/dL (Better) Range: 6.4-8.2 A/G RATIO 1.0 units (Better) Range: 1.0-1.8 CALCIUM 9.0 mg/dL (Better) Range: 8.5-10.1 Plan of Care Planned Observations* Name Dates [...]
--- OUTSIDE RECORDS SUMMARY | 2017-01-21 17:55 | XMS REPORT | Summary of Care ---
Author Author Peter Robins, DALJIT, ,Zeeshan Organization Unknown Address Unknown Phone Unavailable Care Team Providers Care Automatic Corn Grinder Operator Name Role Phone Rosas Robins, DALJIT, ,, M Unavailable Unavailable Mell Nam M.D. Unavailable Unavailable Peter Robins FACS, ,Zeeshan Unavailable Unavailable Ramin Nam Unavailable Unavailable Unavailable [...] Status: Active Gastritis (535.50, K29.70) Status: Active Medications Name Dates Details Spironolactone 100 MG Oral Tablet TAKE ONE TABLET BY MOUTH ONCE DAILY, ALTERNATING WITH ON-HALF TABLET EVERY OTHER DAY. Quantity: 45 Ramin Nam M.D. * Start Active Verapamil HCl - 80 MG Oral Tablet TAKE ONE TABLET BY MOUTH THREE TIMES DAILY * Quantity: 90 Refills: 0 Ramin Nam M.D. * Start 09-Jun-2016 Active Pravastatin Sodium 40 MG Oral Tablet TAKE 1 TABLET DAILY AT BEDTIME. * Quantity: 90 Refills: 1 Ramin Nam M.D. * Start 09-Sep-2009 Active PriLOSEC OTC 20 [...] 22-Jul-2016 BASIC METABOLIC PROFILE 1210 Ordered: 22-Jul-2016 ORTHO HIP LEFT (1 VIEW ONLY) Ordered: 04-Jun-2016 ORTHO PELVIS (AP ONLY) Ordered: 04-Jun-2016 ORTHO SPINE LUMBAR (5 VIEWS) Ordered: 09-Jun-2016 Immunization Name Dates Details Fluzone High-Dose 0.5 ML Intramuscular Suspension Prefilled Syringe on: 23-Jun-2016 Prevnar 13 Intramuscular Suspension Lot #: [id number] on: 22-Jul-2016 Family History Name Dates Details Family history of kidney stones (V18.69, Z84.1) Status: Active Name Dates Details Family history of Hay Fever Status: Active Social History Name Dates Details - Status: Name Dates Details Never smoker Vital Signs Date Test Result Details 22-Jul-2016 10:18 BP Systolic 120 mm[Hg] Status: Comments: Location: ; Position: BP Diastolic 64 mm[Hg] Status: Comments: Location: ; Position: Heart Rate 70 /min Status: Comments: Location: ; Physical Findings 96 Status: Comments: O2 Saturation Results Date Description Value Details 07-Jul-2016 09:59 URINE CULTURE [id number] Comments: [employer] Info performed at: [facility] [address] [place] [address], [id number], Artificial Inseminator: Diego Latham D.O., MPHQuest Collection Date/Time: [id number] Results Received Date/Time: [id number] Reported Date/Time: [id number] FASTING:NO CULTURE, URINE, ROUTINE SEE NOTE Comments: CULTURE, URINE, ROUTINE MICRO NUMBER: [id number] TEST STATUS: FINAL SPECIMEN SOURCE: URINE , CLEAN CATCH SPECIMEN QUALITY: ADEQUATE RESULT: Single organism less than 10,000 CFU/mL isolated. These organisms, commonly found on external and internal genitalia, are considered colonizers. No further testing performed.[LA]----- 22-Jul-2016 11:14 CBC w/ Auto Diff 7150 WBC 5.9 K/uL Range: 4.5-11.0 RBC 4.75 mil/uL Range: 3.60-5.00 HGB 14.8 g/dL Range: 12.0-16.0 HCT 43.8 % Range: 36.0-48.0 MCV 92.3 fL Range: 80.0-99.0 MCH 31.1 pg Range: 27.3-32.5 MCHC 33.7 % Range: 32.0-36.0 RDW 13.6 % Range: 11.6-14.8 PLATELETS 219 K/uL Range: 150-400 MPV 7.0 fL Range: 6.0-11.0 %NEUTRO 59.9 % Range: 37.0-80.0 %LYMPHS 29.9 % Range: 13.0-50.0 %MONO 5.9 % Range: 0.0-12.0 %EOS 1.9 % Range: 0.0-7.0 %BASO 0.5 % Range: 0.0-2.5 %IRVING 2.0 % Range: 0.0-5.0 NEUTRO 3.5 K/uL Range: 2.0-6.9 LYMPHS 1.8 K/uL Range: 0.6-3.4 MONOS 0.3 K/uL Range: 0.0-0.9 EOS 0.1 K/uL Range: 0.0-0.7 BASO 0.0 K/uL Range: 0.0-0.2 11:23 BASIC METABOLIC PROFILE 1210 SODIUM 138 mmol/L Range: 133-144 POTASSIUM 4.3 mmol/L Range: 3.5-5.1 CHLORIDE 105 mmol/L Range: 98-110 CARBON DIOXIDE 31.1 mmol/L Range: 23.0-33.0 ANION GAP 2 mmol/L (Below low threshold) Range: 6-16 BUN 23 mg/dL (Above high threshold) Range: 7-18 CREATININE, SERUM 0.59 mg/dL Range: 0.55-1.02 EST GFR, >60 ml/min Range: >60 EST GFR, NON-AFR GAMBIAN >60 ml/min Range: >60 Comments: EST GFR is reported in ml/min per 1.73 m2 of body surface area. ----- BUN:CREATININE RATIO 39 GLUCOSE 92 mg/dL Range: 70-100 CALCIUM 9.0 mg/dL Range: 8.5-10.1 Plan of Care Name Dates Details Planned Observations Planned Goals not documented Planned Encounters Appointment; Provider: Fredy Pillai M.D.|VibhaC.SALIRIO Solitario FACS, On 06-Jul-2017 08:45 Appointment; Provider: Ramin Nam M.D. On 24-Aug-2016 13:30 Appointment; Provider: Zeeshan Green M.D.|VibhaCSeanSALIRIO Solitario FACS, On 11-Aug-2016 11:15 Interventions Provided Labs/Procedures/Imaging* Upper Endoscopy ( EGD); Done: 04 Aug 2016 Instructions Name Dates Details Instructions not documented Encounters Appointment; Mehrdad Laura Encounter Diagnosis: Problem not documented On 04-Aug-2016 08:30 Appointment; Ramin Nam M.D. Encounter Diagnosis: Problem not documented On 22-Jul-2016 10:15 Appointment; Fredy Pillai M.D.|VibhaC.SALIRIO Solitario,DALJIT, Encounter Diagnosis: Problem not documented On 05-Jul-2016 [...] documented On 05-Nov-2015 08:15 Appointment; Fredy Pillai M.D.|Tian.C.SSean|ALIRIO Robins FACS, Encounter Diagnosis: Problem not documented On 02-Jul-2015 08:45 Appointment; Yared Nazario M.D. Encounter Diagnosis: Problem not documented On 31-Oct-2014 14:15"
--- OUTSIDE RECORDS SUMMARY | 2017-01-21 17:55 | XMS REPORT | Summary of Care ---
Author Author Ramin Nam M.D. Organization Unknown Address [address] [place], [place] [id number] Phone Unavailable Care Team Providers Care Knitting Machine Fixer Head Name Role Phone Rosas Robins, FACS, ,, M Unavailable Unavailable Viv Robins W Unavailable Unavailable Ramin Nam PP Unavailable Unavailable [...] Active Neurogenic bladder (596.54, N31.9) Status: Active Medications Name Dates Details Aldactone [...] Suspension * Refills: 0 * Started 13-Aug-2011 ActiveAspirin [...] Refills: 6 Ramin Nam M.D.* Started 19-Nov-2015 [id number] Tablet Bottle Allergies and Adverse Reactions Name [...] smoker Vital Signs Date Test Result Details 17-Feb-2016 10:35 BP Systolic 130 mm[Hg] Status: BP Diastolic 82 mm[Hg] Status: Heart Rate 66 /min Status: Weight 164 lb Status: Body Mass Index Calculated 30 kg/m2 Status: Body Surface Area Calculated 1.76 m2 Status: Results Date Description Value Details 17-Feb-2016 08:29 CBC w/ Auto Diff 7150 Comments: Fastin hours WBC 4.6 K/uL (Better) Range: 4.5-11.0 RBC 5.09 mil/uL (Above high threshold) Range: 3.60-5.00 HGB 15.9 g/dL (Better) Range: 12.0-16.0 HCT 47.9 % (Better) Range: 36.0-48.0 MCV 94.0 fL (Better) Range: 80.0-99.0 MCH 31.1 pg (Better) Range: 27.3-32.5 MCHC 33.1 % (Better) Range: 32.0-36.0 RDW 12.7 % (Better) Range: 11.6-14.8 PLATELETS 214 K/uL (Better) Range: 150-400 MPV 6.4 fL (Better) Range: 6.0-11.0 %NEUTRO 61.3 % (Better) Range: 37.0-80.0 %LYMPHS 29.3 % (Better) Range: 13.0-50.0 %MONO 4.6 % (Better) Range: 0.0-12.0 %EOS 2.3 % (Better) Range: 0.0-7.0 %BASO 0.5 % (Better) Range: 0.0-2.5 %IRVING 1.9 % (Better) Range: 0.0-5.0 NEUTRO 2.8 K/uL (Better) Range: 2.0-6.9 LYMPHS 1.3 K/uL (Better) Range: 0.6-3.4 MONOS 0.2 K/uL (Better) Range: 0.0-0.9 EOS 0.1 K/uL (Better) Range: 0.0-0.7 BASO 0.0 K/uL (Better) Range: 0.0-0.2 08:54 LIPID PROFILE 1184 Comments: Fastin hours CHOLESTEROL 173 mg/dL (Better) Range: <200 TRIGLYCERIDES 78 mg/dL (Better) Range: 30-200 HDL Cholesterol 54 mg/dL (Better) Range: >39 NON HDL CHOLESTEROL 119 (Better) CARDIAC RSK FACTOR 3.2 units (Below low threshold) Range: 4.4-5.0 LDL - CALCULATED 103 mg/dL (Better) Range: 0-130 08:54 BASIC METABOLIC PROFILE 1210 Comments: Fastin hours SODIUM 145 mmol/L (Above high threshold) Range: 133-144 POTASSIUM 4.6 mmol/L (Better) Range: 3.5-5.1 CHLORIDE 103 mmol/L (Better) Range: 98-110 CARBON DIOXIDE 29.2 mmol/L (Better) Range: 23.0-33.0 ANION GAP 13 mmol/L (Better) Range: 6-16 BUN 23 mg/dL (Above high threshold) Range: 7-18 CREATININE, SERUM 0.63 mg/dL (Better) Range: 0.55-1.02 Comments: Please note new reference ranges effective 2015.----- EST GFR, >60 ml/min (Better) Range: >60 EST GFR, NON-AFR SENEGALESE >60 ml/min (Better) Range: >60 Comments: EST GFR is reported in ml/min per 1.73 m2 of body surface area. For -Moroccan, please multiple result by 1.2.----- BUN:CREATININE RATIO 37 (Better) GLUCOSE 91 mg/dL (Better) Range: 70-100 CALCIUM 8.8 mg/dL (Better) Range: 8.5-10.1 09:11 THYROID STIM. HORMONE 3602 Comments: Fastin hours THYROID STIM. HORMONE 1.552 uIU/mL (Better) Range: 0.550-4.780 Comments: No established reference ranges for infants and children <2 years of age----- Plan of Care Planned Observations* Name Dates Details Planned Goals not documented Goal Planned Encounters* Appointment; Provider: Fredy Pillai On 05-Jul-2016 08:15 * Appointment; Provider: Fredy Pillai On 03-May-2014 07:00 Instructions * Instructions not documented Encounters Appointment; Ramin Nam Encounter Diagnosis: Problem not documented On 17-Feb-2016 10:30 Appointment; Deacon Camarena Encounter Diagnosis: Problem not [...]
--- OUTSIDE RECORDS SUMMARY | 2017-01-21 17:55 | XMS REPORT | Summary of Care ---
Author Author Brooke Cisneros M.D. Organization Unknown Address [address], [place] [id number] Phone Unavailable Care Team Providers Care Production Team Member Name Role Phone Oseas Pillai Unavailable Unavailable [...] History of Gallbladder Surgery History of Hysterectomy FREE T4 3604 Ordered: 20-Dec-2016 THYROID STIM. HORMONE 3602 Ordered: 20-Dec-2016 DEXA Ordered: 01-Dec-2016 Immunization Name Dates Details Fluzone High-Dose 0.5 ML Intramuscular Suspension Prefilled Syringe on: 23-Jun-2016 Prevnar 13 Intramuscular Suspension Lot #: [id number] on: 22-Jul-2016 Family History Name Dates Details [...] >60 ml/min Range: >60 EST GFR, NON-AFR ENGLISH >60 ml/min Range: >60 Comments: EST GFR [...] Range: 1.0-1.8 CALCIUM 9.1 mg/dL Range: 8.5-10.1 Plan of Care Name Dates Details Planned Observations Planned Goals not documented Planned Encounters Appointment; Provider: Brooke Cisneros M.D. On 23-Feb-2017 08:00 Appointment; Provider: Schedule Radiology On 10-Feb-2017 14:30 Appointment; Provider: Keri Barraza A.P.R.N. On 21-Jan-2017 10:00 Appointment; Provider: Brooke Cisneros M.D. On 06-Jan-2017 13:45 Appointment; Provider: Brooke Cisneros M.D. On 24-Dec-2016 13:45 Interventions Provided Labs/Procedures/Imaging* FREE T4 3604; To be Done: 20 Dec 2016 * THYROID STIM. HORMONE 3602; To be Done: 20 Dec 2016 * CBC w/ Auto Diff 7150; Done: Dec 20 2016 5:01PM * Comprehensive Metabolic Panel 1212; Done: Dec 20 2016 5:01PM * Urinalysis, [...] documented On 24-Aug-2016 13:30 Appointment; Zeeshan Green M.D.|VibhaCSeanSSean|DALJIT Robins|DALJIT Robins, Encounter Diagnosis: Problem not documented On 11-Aug-2016 11:15 Appointment; Zeeshan Green M.D.|VibhaC.SSean|DLAJIT Robins|DALJIT Robins, Encounter Diagnosis: Problem not documented [...] Problem not documented On 20-May-2016 10:30 Appointment; Raimn Nam M.D. Encounter Diagnosis: Problem not documented [...]
--- OUTSIDE RECORDS SUMMARY | 2017-01-21 17:55 | XMS REPORT | Referral Summary ---
Author Author [facility] Organization [facility] Address Unknown Phone Unavailable Care Team Providers Care Fresh Work Wrapper Layer Name Role Phone Flo Pineda Primary Care Physician [phone] Encounter VC Date(s): 03/18/15 - 03/18/15 [facility] [address] [place] [address] ANA [place] [id number] Discharge Diagnosis: Benign hemangioma Discharge Disposition: 01-Home or Self Care Attending Physician: Castro Stephens MD Admitting Physician: Castro Stephens MD Referring Physician: Terrence Kulkarni MD Vital Signs No data available for this section Problem List Condition Effective Dates Status Health Status Informant Cataracts(Confirmed) 2001 Active Chicken Active pox(Confirmed) Constipation(Confirm Active ed) Gastro-esophageal Active reflux(Confirmed) Hearing Active loss(Confirmed)1 High 2004 Active cholesterol(Confirme d) Hives(Confirmed) Active Hypertension(Confirm 1978 Active ed) Urine Active Infection(Confirmed) Insomnia(Confirmed) 2005 Active Measles(Confirmed) Active Menopausal 1979 Resolved symptoms(Confirmed) Migraine Active headache(Confirmed) Mumps(Confirmed) Active Osteoarthritis(Confi 1973 Active rmed) Overweight(Confirmed 1960 Active ) Scarlet Active fever(Confirmed) Stress 2007 Active incontinence(Confirm ed) Stroke(Confirmed) 1986 Active TIA(Confirmed) Active Urge Active incontinence(Confirm ed) [...] MOUTH ONCE DAILY, # 90 tabs, eRx: [facility], TAKE ONE TABLET BY MOUTH ONCE DAILY Start Date: 07/29/15 Status: Ordered spironolactone 100 mg oral tablet See Instructions, TAKE ONE TABLET BY MOUTH ONCE DAILY ALTERNATING WITH ONE- HALF TABLET EVERY OTHER DAY., # 72 tabs, eRx: [facility], TAKE ONE TABLET BY MOUTH ONCE DAILY ALTERNATING WITH ONE-HALF TABLET EVERY OTHER DAY. Start Date: 07/29/15 Status: Ordered verapamil 80 mg oral tablet See Instructions, TAKE ONE TABLET BY MOUTH THREE TIMES DAILY, # 270 tabs, eRx: [facility], TAKE ONE TABLET BY [...] Extracted from: Title: Ambulatory Patient Education Author: Melany Ocampo NURSING EDUCATION CONSULTANT Date : 03/18/15 Family Medicine Jeffers Angioma Jeffers angiomas are [...] Revised: 12/11/2012 Document Reviewed: ExitCare Patient Information 2013 [employer]. No follow up information was provided. Extracted from: Title: Office Visit Note Author: Melany Ocampo NURSING EDUCATION CONSULTANT Date: 03/18/15 Assessment/Plan Benign hemangioma This is a benign lesion, not a cancer. It should continue to heal in without difficulty. Ordered: Postoperative Est [id number]
--- OUTSIDE RECORDS SUMMARY | 2017-01-21 17:55 | XMS REPORT | Summary of Care ---
Author Author Rosas Robins, DALJIT, ,Fredy Organization Unknown Address Unknown Phone Unavailable Care Team Providers Care Air Compressor Engineer Name Role Phone Rosas Robins, DALJIT, M Unavailable Unavailable Mell Nam M.D. Unavailable Unavailable Ramin Nam Unavailable Unavailable [...] Status: Active Hypertension (401.9, I10) Status: Active Aortic stenosis, moderate (424.1, I35.0) Status: Active Dementia (294.20, F03.90) Status: Active Left buttock pain (729.1, M79.1) Status: Active 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, M47.9) Status: Active Left hip pain (719.45, M25.552) Status: Active Neurogenic bladder (596.54, N31.9) Status: Active Urge incontinence (788.31, N39.41) Status: Active Medications Name Dates Details Spironolactone 100 MG Oral Tablet TAKE ONE TABLET BY MOUTH ONCE DAILY, ALTERNATING WITH ON-HALF TABLET EVERY OTHER DAY. Quantity: 45 Ramin Nam M.D. W * Start Active Verapamil HCl - 80 MG Oral Tablet TAKE ONE TABLET BY MOUTH THREE TIMES DAILY * Quantity: 90 Refills: 0 Viv Robins, Ramin Monte * Start 09-Jun-2016 Active Daily Multiple Vitamins/Min [...] 3 Rosas Robins, FACS, , , Fredy M * Start 17-May-2014 Active Donepezil HCl - [...] History of Gallbladder Surgery History of Hysterectomy URINE CULTURE [id number] Ordered: 05-Jul-2016 ORTHO HIP LEFT (1 VIEW ONLY) Ordered: 04-Jun-2016 ORTHO PELVIS (AP ONLY) Ordered: 04-Jun-2016 ORTHO SPINE LUMBAR (5 VIEWS) Ordered: 09-Jun-2016 Immunization Name Dates Details Fluzone High-Dose 0.5 ML Intramuscular Suspension Prefilled Syringe on: 23-Jun-2016 Family History Name Dates Details Family history [...] Comments: Respiration Results Date Description Value Details Results not documented Plan of Care Name Dates Details Planned Observations Planned Goals not documented Planned Encounters Appointment; Provider: Fredy Pillai M.D.|DALJIT Winn|DALJIT Robins, On 06-Jul-2017 08:45 Appointment; Provider: Ramin Nam M.D. On 24-Aug-2016 13:30 Interventions Provided Medication Changes* Bethanechol Chloride 25 MG Oral Tablet - Renew Labs/Procedures/Imaging* URINE CULTURE [id number]; To be Done: 05 Jul 2016 Instructions Name Dates Details Instructions not documented Encounters Appointment; Leonardo Stokes M.D. Encounter Diagnosis: Problem [...] documented On 05-Nov-2015 08:15 Appointment; Fredy Pillai M.D.|Yobani|Jluienne,DALJIT|Julienne,DALJIT, Encounter Diagnosis: Problem not documented On 02-Jul-2015 08:45 Appointment; Yared Nazario M.D. Encounter Diagnosis: Problem not documented On 31-Oct-2014 14:15"
--- OUTSIDE RECORDS SUMMARY | 2017-01-21 17:55 | XMS REPORT | Summary of Care ---
Author Ramin Lund M.D. Organization Unknown Address Unknown Phone Unavailable Care Team Providers Care Applications Support Specialist Name Role Phone Rosas Robins, FACS, ,, M Unavailable Unavailable Viv Robins, Mell Unavailable Unavailable Ramin Nam Unavailable Unavailable Unavailable [...] Upper GI bleed (578.9, K92.2) Status: Active Medications Name Dates Details Spironolactone [...] History of Gallbladder Surgery History of Hysterectomy Upper Endoscopy ( EGD) Pendin22-Jul-2016 HEMOGRAM 7305 Ordered: 22-Jul-2016 BASIC METABOLIC PROFILE 1210 Ordered: 22-Jul-2016 ORTHO HIP LEFT (1 VIEW ONLY) Ordered: 04-Jun-2016 ORTHO PELVIS (AP ONLY) Ordered: 04-Jun-2016 ORTHO SPINE LUMBAR (5 VIEWS) Ordered: 09-Jun-2016 Immunization Name Dates Details Fluzone High-Dose 0.5 ML Intramuscular Suspension Prefilled Syringe on: 23-Jun-2016 Prevnar 13 Intramuscular Suspension Lot #: [id number] on: 22-Jul-2016 Family History Name Dates Details [...] Description Value Details 07-Jul-2016 09:59 URINE CULTURE [id number] Comments: Clear Water Outdoor [facility] at[facility], [address] [place] [address], [id number], Corrugator Operator: Diego Latham D.O. MPHQuest Collection Date/Time: [id number] Results Received Date/Time: [id number] Reported Date/Time: [id number] FASTING:NO CULTURE, URINE, ROUTINE SEE NOTE Comments: CULTURE, URINE, ROUTINE MICRO NUMBER: [id number] TEST STATUS: FINAL SPECIMEN SOURCE: URINE , CLEAN CATCH SPECIMEN QUALITY: ADEQUATE RESULT: Single organism less than 10,000 CFU/mL isolated. These organisms, commonly found on external and internal genitalia, are considered colonizers. No further testing performed.[[place]]----- 22-Jul-2016 11:14 CBC w/ Auto Diff 7150 [...] >60 ml/min Range: >60 EST GFR, NON-AFR SLOVENIAN >60 ml/min Range: >60 Comments: EST GFR is reported in ml/min per 1.73 m2 of body surface area. ----- BUN:CREATININE RATIO 39 GLUCOSE 92 mg/dL Range: 70-100 CALCIUM 9.0 mg/dL Range: 8.5-10.1 Plan of Care Name Dates Details Planned Observations Upper Endoscopy ( EGD) On 22-Jul-2016 Intent HEMOGRAM 7305 On 24-Aug-2016 Intent BASIC METABOLIC PROFILE 1210 On 24-Aug-2016 Intent Planned Goals not documented Planned Encounters Appointment; Provider: Fredy Pillai M.D.|VibhaCSeanSKassi,DALJIT AMEZQUITA, On 06-Jul-2017 08:45 Appointment; Provider: Ramin Nam M.D. On 24-Aug-2016 13:30 Interventions Provided Labs/Procedures/Imaging* BASIC METABOLIC PROFILE 1210; Done: Jul 22 2016 11:05AM * CBC w/ Auto Diff 7150; Done: Jul 22 2016 11:05AM Instructions* There are many exercise options for seniors.; Done: Medications/Immunizations Administered* Prevnar 13 Intramuscular Suspension; Done: 22 Jul 2016 Instructions Name Dates Details Instructions not documented Encounters Appointment; Fredy Pillai M.D.|Yobani|Julienne,ALIRIO,DALJIT, Encounter Diagnosis: Problem not documented On 05-Jul-2016 [...] documented On 05-Nov-2015 08:15 Appointment; Fredy Pillai M.D.|VibhaC.Derik|Julienne,DALJIT|Julienne,DALJIT, Encounter Diagnosis: Problem not documented On 02-Jul-2015 08:45 Appointment; Yared Nazario M.D. Encounter Diagnosis: Problem not documented On 31-Oct-2014 14:15"
--- OUTSIDE RECORDS SUMMARY | 2017-01-21 17:56 | XMS REPORT | Summary of Care ---
Author Author Keri Barraza APRN Organization Unknown Address [address], [place] [address] Phone Unavailable Care Team Providers Care Semiconductor Dies Loader Name Role Phone Oseas Pillai Unavailable Unavailable Mell Nam M.D. Unavailable Unavailable Brooke Cisneros M.D. Unavailable Unavailable Keri Barraza APRN Unavailable Unavailable Nicole Cisneros Unavailable Unavailable Unavailable [...] Status: Active Gastritis (535.50, K29.70) Status: Active Decreased hearing of both ears [...] DAILY * Quantity: 90 Refills: 0 Viv Robins Ramin Monte * Start 09-Jun-2016 Active Pravastatin Sodium 40 [...] 0 Brooke Cisneros M.D. Start 10-Dec-2016 Active QUEtiapine Fumarate 25 MG [...] Active Past Medical History Name Dates Details Aortic stenosis, moderate (424.1, I35.0) Status: Active [...] 23-Jun-2016 Prevnar 13 Intramuscular Suspension Lot #: [id number] on: 22-Jul-2016 Family History Name Dates Details [...] M.D. Encounter Diagnosis: Problem not documented On 20-Dec-2016 16:00 Appointment; Brooke Cisneros M.D. Encounter Diagnosis: Problem [...] On 24-Aug-2016 13:30 Appointment; Zeeshan Green M.D.|VibhaCSeanSSean|DALJIT Robins|Julienne,DALJIT, Encounter Diagnosis: Problem not documented On 11-Aug-2016 11:15 Appointment; Zeeshan Green M.D.|FCandice.C.SSean|DALJIT Robins|Julienne,DALJIT, Encounter Diagnosis: Problem not documented On [...] documented On 05-Nov-2015 08:15 Appointment; Fredy Pillai M.D.,[facility], Encounter Diagnosis: Problem not documented On 02-Jul-2015 08:45"
--- OUTSIDE RECORDS SUMMARY | 2017-01-21 17:56 | XMS REPORT | Summary of Care ---
Author Author Blayne Robins, Brooke Organization Unknown Address [address], [place] [address] Phone Unavailable Care Team Providers Care Livestock Haulier Name Role Phone SangeetajahOseas Unavailable Unavailable Mell [...] Active Visual hallucinations (368.16, R44.1) Status: Active Medications Name Dates Details Spironolactone [...] 30 Refills: 0 Brooke Cisneros M.D. Start 05-Nov-2016 Active Spironolactone 50 MG Oral [...] 23-Jun-2016 Prevnar 13 Intramuscular Suspension Lot #: [id number] on: 22-Jul-2016 Family History Name Dates Details Family history of kidney stones (V18.69, Z84.1) Status: Active Name Dates Details Family history of Hay Fever Status: Active Social History Name Dates Details - Status: Name Dates Details Never smoker Vital Signs Date Test Result Details 10-Dec-2016 16:00 BP Systolic 138 mm[Hg] Status: [...] >60 ml/min Range: >60 EST GFR, NON-AFR TUNISIAN >60 ml/min Range: >60 Comments: EST GFR [...] Goals not documented Planned Encounters Appointment; Provider: Schedule Radiology On 10-Feb-2017 14:30 Appointment; Provider: Keri Barraza A.P.R.N. On 21-Jan-2017 10:00 Appointment; Provider: Brooke Cisneros M.D. On 24-Dec-2016 13:45 Interventions Provided Medication Changes* Donepezil HCl - 10 MG Oral Tablet - Start * Namzaric 7 & 14 & 21 &28 -10 MG Oral Capsule ER 24 Hour Therapy Pack - Stop * QUEtiapine Fumarate 25 MG Oral Tablet - Start Instructions Name Dates Details Instructions not documented [...] documented On 24-Aug-2016 13:30 Appointment; Zeeshan Green M.D.|VibhaCSeanSSean|Juleinne,DALJIT|Julienne,DALJIT, Encounter Diagnosis: Problem not documented On 11-Aug-2016 11:15 Appointment; Zeeshan Green M.D.|Tian.C.SSean|Julienne,DALJIT|DALJIT Robins, Encounter Diagnosis: Problem not documented On [...] documented On 05-Nov-2015 08:15 Appointment; Fredy Pillai M.D.,[facility], Encounter Diagnosis: Problem not documented On 02-Jul-2015 08:45"
--- OUTSIDE RECORDS SUMMARY | 2017-01-21 17:56 | XMS REPORT | Summary of Care ---
Author Author Kike Robins, Leonardo Organization Unknown Address Unknown Phone Unavailable Care Team Providers Care Rod Welder Name Role Phone Rosas Robins, FACS, ,, [...] stenosis, moderate (424.1, I35.0) Status: Active Left hip pain (719.45, M25.552) Status: Active Dementia (294.20, F03.90) Status: Active Left buttock pain (729.1, M79.1) Status: Active 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, M47.9) Status: Active Medications Name Dates Details Aldactone 100 MG Oral Tablet TAKE 1 TABLET DAILY WITH BREAKFAST. * Start Active Verapamil HCl - 80 MG Oral Tablet TAKE ONE TABLET BY MOUTH THREE TIMES DAILY * Quantity: 90 Refills: 0 Ramin aNm M.D. * Start 09-Jun-2016 Active Daily Multiple [...] >60 ml/min Range: >60 EST GFR, NON-AFR DOMINICAN >60 ml/min Range: >60 Comments: EST GFR is reported in ml/min per 1.73 m2 of body surface area. For -[place], please multiple result by 1.2.----- BUN:CREATININE RATIO 39 GLUCOSE 89 mg/dL Range: 70-100 CALCIUM 8.9 mg/dL Range: 8.5-10.1 Plan of Care Name Dates Details Planned Observations Planned Goals not documented Planned Encounters Appointment; Provider: Ramin Nam M.D. On 24-Aug-2016 13:30 Appointment; Provider: Fredy Pillai M.D.|VibhaCSeanSSean|DALJIT Robins|Julienne,DALJIT, On 05-Jul-2016 08:15 Interventions Provided Labs/Procedures/Imaging* ORTHO SPINE LUMBAR (5 VIEWS); To be Done: 14 Jun 2016 Instructions Name Dates Details Instructions not documented Encounters Appointment; Ramin Jonas M.D. Encounter Diagnosis: Problem not documented On 08-Jun-2016 09:00 Appointment; Ramin Nam M.D. Encounter Diagnosis: Problem not documented On 20-May-2016 10:30 Appointment; Ramin aNm M.D. Encounter Diagnosis: Problem not documented On [...] documented On 31-Oct-2014 14:15 Appointment; Fredy Pillai M.D.|VibhaC.S.|Julienne,DALJIT|Julienne,DALJIT, Encounter Diagnosis: Problem not documented On 28-Jun-2014 08:45"
--- OUTSIDE RECORDS SUMMARY | 2017-01-21 17:56 | XMS REPORT | Summary of Care ---
Author Author Rosas Robins, FACS, ,Fredy Organization Unknown Address [address] [place], [place] [phone] Phone Unavailable Care Team Providers Care Water Restoration Technician Name Role Phone Terrence Kulkarni Unavailable Unavailable Unavailable Unavailable Functional Status Functional Status Health Issues* Name Dates Details No known functional status health issues Status: Cognitive Status Health Issues* Name Dates Details No known cognitive status health issues Status: Problems Name Dates Details History of allergy (V15.09, Z88.9) Status: Active Angioedema (995.1, T78.3XXA) Status: Active Osteoarthritis (715.90, M19.90) Status: Active Urticaria (708.9, L50.9) Status: Active Essential hypertension (401.9, I10) Status: Active Esophageal reflux (530.81, K21.9) Status: Active Hyperlipidemia (272.4, E78.5) Status: Active Peripheral neuropathy (356.9, G62.9) Status: Active Urinary retention (788.20, R33.9) Status: Active Medications Name Dates Details Spironolactone 50 MG Oral Tablet * Started ActiveVerapamil HCl - 80 MG [...] inection deviceuse has instructed. * Quantity: 1 EA Refills: 1 * Started ActiveIbuprofen 100 MG/5ML Oral Suspension * [...] Tablet * Refills: 0 * Started 18-Aug-2012 Active Allergies and Adverse Reactions Name Dates Details Biaxin TABS Status: Active Penicillins Status: Active Vioxx TABS Status: Active Inderal TABS Status: Active Past Medical History Name Dates Details Skin Cancer (V10.83) Status: Resolved Actinic keratosis (702.0, L57.0) Status: Resolved History of seborrheic dermatitis (V13.3, Z87.2) Status: Resolved Intertrigo (695.89, L30.4) Status: Resolved History of seborrheic keratosis (V13.3, Z87.2) Status: Resolved Procedures Procedure Dates Details Appendectomy Gallbladder Surgery Hysterectomy URINE CULTURE 5010 Immunization Name Dates Details Immunizations not documented Family History natural daughter* Name Dates Details Family history of kidney stones (V18.69, Z84.1) Status: Active Father* Name Dates Details Hay Fever Status: Active Social History Name Dates Details Never smoker Smoking Status* Never smoker Vital Signs Date Test Result Details No Known Vitals to report Results Date Description Value Details Results not documented Plan of Care Instructions* Instructions not documented Planned Observations* Name Dates Details Planned Goals not documented Goal Planned Encounters* Appointment; Provider: Yared Nazario On 31-Oct-2014 14:15 * Appointment; Provider: Fredy Pillai On 17-May-2014 08:30 Instructions * No Known Instructions Encounters Appointment; Fredy Pillai Encounter Diagnosis: Problem not documented On 03-May-2014 08:30 Appointment; Pamella Arvizu Encounter Diagnosis: Problem not documented On 29-Oct-2013 14:00 Appointment; Pamella Arvizu Encounter Diagnosis: Problem not documented On 05-Sep-2012 15:30 Appointment; Pamella Arvizu Encounter Diagnosis: Problem not documented On 18-Aug-2012 14:15
--- OUTSIDE RECORDS SUMMARY | 2017-01-21 17:56 | XMS REPORT | Summary of Care ---
Author Author Blayne Robins, Brooke Organization Unknown Address [address] [place], [place] [phone] Phone Unavailable Care Team Providers Care Admitting Interviewer Name Role Phone SangeetaOseas tyson Unavailable Unavailable [...] R41.89) Status: Active Medications Name Dates Details Verapamil HCl - 80 MG Oral Tablet TAKE ONE TABLET BY MOUTH THREE TIMES DAILY Quantity: 90 Ramin Nam M.D. * Start 09-Jun-2016 Active Pravastatin Sodium 40 MG Oral Tablet TAKE 1 TABLET DAILY AT BEDTIME. * Quantity: 90 Refills: 1 Ramin Nam M.D. * Start 09-Sep-2009 Active Stool Softener 100 MG Oral Tablet [...] Brooke Cisneros M.D. * Start 05-Nov-2016 Active Lutein 20 MG Oral Tablet * Refills: 0 * Start 18-Aug-2012 Active Spironolactone 50 MG Oral Tablet Take 1 1/2 tablets daily (75 mg qd) * Quantity: 60 Refills: 0 Brooke Cisneros M.D. * Start Active QUEtiapine Fumarate 25 MG Oral Tablet TAKE 1 TABLET AT BEDTIME. * Quantity: 30 Refills: 0 Brooke Cisneros M.D. * Start 10-Dec-2016 Active Donepezil HCl - 10 MG Oral Tablet TAKE 1 TABLET DAILY DIRECTED. * Quantity: 30 Refills: 0 Brooke Cisneros M.D. * Start 10-Dec-2016 Active Spironolactone 50 MG Oral Tablet TAKE [...] 23-Jun-2016 Prevnar 13 Intramuscular Suspension Lot #: [id number] on: 22-Jul-2016 Family History Name Dates Details [...] >60 ml/min Range: >60 EST GFR, NON-AFR PORTUGUESE >60 ml/min Range: >60 Comments: EST GFR [...] Provider: Brooke Cisneros M.D. On 06-Jan-2017 13:45 Instructions Name Dates Details Instructions not documented [...]
--- OUTSIDE RECORDS SUMMARY | 2017-01-21 17:56 | XMS REPORT | Summary of Care ---
Author Author Blayne Robins, Brooke Organization Unknown Address [address], [place] [id number] Phone Unavailable Care Team Providers Care Assistant Kitchen Manager Name Role Phone SangeetajahOseas Unavailable Unavailable Mell [...] History of Gallbladder Surgery History of Hysterectomy CBC w/ Auto Diff 7150 Ordered: 05-Nov-2016 Comprehensive Metabolic Panel 1212 Ordered: 05-Nov-2016 FREE T4 3604 Ordered: 05-Nov-2016 THYROID STIM. HORMONE 3602 Ordered: 05-Nov-2016 LIPID PROFILE 1184 Ordered: 05-Nov-2016 Immunization Name Dates Details Fluzone High-Dose 0.5 ML Intramuscular Suspension Prefilled Syringe on: 23-Jun-2016 Prevnar 13 Intramuscular Suspension Lot #: [id number] on: 22-Jul-2016 Family History Name Dates Details [...] of Care Name Dates Details Planned Observations CBC w/ Auto Diff 7150 On 08-Nov-2016 Intent Comprehensive Metabolic Panel 1212 On 08-Nov-2016 Intent FREE T4 3604 On 08-Nov-2016 Intent THYROID STIM. HORMONE 3602 On 08-Nov-2016 Intent LIPID PROFILE 1184 On 08-Nov-2016 Intent Planned Goals not documented Planned Encounters Appointment; Provider: Fredy Pillai M.D., FACS, On 06-Jul-2017 08:45 Interventions Provided Medication Changes* Donepezil HCl - [...] documented On 24-Aug-2016 13:30 Appointment; Zeeshan Green M.D.|F.A.C.S.|DALJIT Robisn|Julienne,DALJIT, Encounter Diagnosis: Problem not documented On 11-Aug-2016 11:15 Appointment; Zeeshan Green M.D.|F.A.C.S.|DALJIT Robins|DALJIT Robins, Encounter Diagnosis: Problem not documented [...] documented On 05-Nov-2015 08:15 Appointment; Fredy Pillai M.D.,[facility], Encounter Diagnosis: Problem not documented On 02-Jul-2015 08:45"
--- OUTSIDE RECORDS SUMMARY | 2017-01-21 17:57 | XMS REPORT | Summary of Care ---
Author Author Peter Robins, DALJIT, ,Zeeshan Organization Unknown Address Unknown Phone Unavailable Care Team Providers Care Hr Systems Analyst Name Role Phone Rosas Robins, DALJIT, ,, [...] Active Antral gastritis (535.40, K29.50) Status: Active Medications Name Dates Details Spironolactone [...] 23-Jun-2016 Prevnar 13 Intramuscular Suspension Lot #: [id number] on: 22-Jul-2016 Family History Name Dates Details [...] O2 Saturation Results Date Description Value Details 22-Jul-2016 11:14 CBC w/ Auto Diff 7150 [...] >60 ml/min Range: >60 EST GFR, NON-AFR ZAMBIAN >60 ml/min Range: >60 Comments: EST GFR is reported in ml/min per 1.73 m2 of body surface area. ----- BUN:CREATININE RATIO 39 GLUCOSE 92 mg/dL Range: 70-100 CALCIUM 9.0 mg/dL Range: 8.5-10.1 Plan of Care Name Dates Details Planned Observations Planned Goals not documented Planned Encounters Appointment; Provider: Fredy Pillai M.D.|VibhaC.SALIRIO Solitario,DALJIT, On 06-Jul-2017 08:45 Appointment; Provider: Ramin Nam M.D. On 24-Aug-2016 13:30 Instructions Name Dates Details Instructions not documented Encounters Appointment; Zeeshan Green M.D.|VibhaC.SSean|ALIRIO Robins,DALJIT, Encounter Diagnosis: Problem not documented On 04-Aug-2016 09:00 Appointment; Mehrdad Laura Encounter Diagnosis: Problem not documented On 04-Aug-2016 08:30 Appointment; Ramin Nam M.D. Encounter Diagnosis: Problem not documented On 22-Jul-2016 10:15 Appointment; Fredy Pillai M.D.|FSeanA.C.S.SADAF Stiles.,FACS, Encounter Diagnosis: Problem not documented On 05-Jul-2016 [...] documented On 05-Nov-2015 08:15 Appointment; Fredy Pillai M.D.|Yobani|Julienne,DALJIT|Julienne,FACS, Encounter Diagnosis: Problem not documented On 02-Jul-2015 08:45 Appointment; Yared Nazario M.D. Encounter Diagnosis: Problem not documented On 31-Oct-2014 14:15"
--- OUTSIDE RECORDS SUMMARY | 2017-01-21 17:57 | XMS REPORT | Summary of Care ---
Author Author Rosas Robins, DALJIT, ,, Fredy M Organization Unknown Address [address] [place], [place] [id number] Phone Unavailable Care Team Providers Care Coal Mine Inspector Name Role Phone Rosas Robins, DALJIT, ,, M Unavailable Unavailable Rachana Robins, Mariah Unavailable Unavailable [...] Active Seborrheic keratosis (702.19, L82.1) Status: Active Neurogenic bladder (596.54, N31.9) Status: Active Medications Name Dates Details Spironolactone [...] Gallbladder Surgery History of Hysterectomy URINE CULTURE [id number] Ordered:02-Jul-2015 Immunization Name Dates Details Immunizations not documented [...] Pillai On 05-Jul-2016 08:15 * Appointment; Provider: Yared Nazario On 05-Nov-2015 08:15 * Appointment; Provider: Fredy Pillai On 03-May-2014 07:00 Instructions * Instructions not documented Encounters Appointment; Fredy Pillai Encounter Diagnosis: Problem [...]
--- OUTSIDE RECORDS SUMMARY | 2017-01-21 17:57 | XMS REPORT | Summary of Care ---
Author Author Blayne Robins, Brooke Organization Unknown Address [address], [place] [address] Phone Unavailable Care Team Providers Care Produce Clerk Name Role Phone SangeetajahOseas Unavailable Unavailable Mell [...] 3 Fredy Pillai * Start 17-May-2014 Active Donepezil HCl - 10 MG Oral Tablet TAKE 1 TABLET DAILY WITH FOOD EACH MORNING * Quantity: 1 Refills: 6 Ramin Nam M.D. * Start 19-Nov-2015 Active 30 Tablet Bottle Tylenol 325 MG Oral Tablet TAKE 2 TABLETS EVERY 6 HOURS NEEDED. * Refills: 0 Ramin Nam M.D. * Start 22-Jul-2016 Active Fluticasone Propionate 50 MCG/ACT Nasal Suspension * Refills: 0 * Start 22-Sep-2016 Active Allergies and Adverse Reactions Name Dates [...] 23-Jun-2016 Prevnar 13 Intramuscular Suspension Lot #: [id number] on: 22-Jul-2016 Family History Name Dates Details [...] documented Planned Encounters Appointment; Provider: Fredy Pillai M.D.,DALJIT, On 06-Jul-2017 08:45 Interventions Provided Labs/Procedures/Imaging* CBC w/ Auto Diff 7150; To be Done: 05 Nov 2016 * Comprehensive Metabolic Panel 1212; To be Done: 05 Nov 2016 * FREE T4 3604; To be Done: 05 Nov 2016 * LIPID PROFILE 1184; To be Done: 05 Nov 2016 * THYROID STIM. HORMONE 3602; To be Done: 05 Nov 2016 Instructions Name Dates Details Instructions not documented Encounters Appointment; Ko Brothers M.D. Encounter Diagnosis: Problem not documented On 01-Oct-2016 10:45 Appointment; Denny Foster M.D. Encounter Diagnosis: Problem not documented On 22-Sep-2016 14:09 Appointment; Ko Brothers M.D. Encounter Diagnosis: Problem not documented On 01-Sep-2016 14:15 Appointment; Ramin Nam M.D. Encounter Diagnosis: Problem not documented On 24-Aug-2016 13:30 Appointment; Zeeshan Green M.D.|VibhaC.SSean|DALJIT Robins|DALJIT Robins, Encounter Diagnosis: Problem not documented On 11-Aug-2016 11:15 Appointment; Zeeshan Green M.D.|Tian.C.SSean|DALJIT Robins|DALJIT Robins, Encounter Diagnosis: Problem not documented [...] documented On 05-Nov-2015 08:15 Appointment; Fredy Pillai M.D.,[facility], Encounter Diagnosis: Problem not documented On 02-Jul-2015 08:45"
--- OUTSIDE RECORDS SUMMARY | 2017-01-21 17:57 | XMS REPORT | Summary of Care ---
Author Author Ramin Nam M.D. Organization Unknown Address [address] [place], [place] [phone] Phone Unavailable Care Team Providers Care Rn Research Name Role Phone Rosas Robins, DALJIT, ,, M Unavailable Unavailable Viv Robins W [...] Refills: 6 Ramin Nam M.D.* Started 19-Nov-2015 [id number] Tablet Bottle Allergies and Adverse Reactions Name [...] History of Gallbladder Surgery History of Hysterectomy BASIC METABOLIC PROFILE 1210 Ordered:17-Feb-2016 Immunization Name Dates Details Immunizations not documented [...] ml/min (Better) Range: >60 EST GFR, NON-AFR TAJIK >60 ml/min (Better) Range: >60 Comments: EST GFR is reported in ml/min per 1.73 m2 of body surface area. For -[place]osoth[place], please multiple result by 1.2.----- BUN:CREATININE RATIO [...] 08:15 * Appointment; Provider: Ramin Nam On 20-May-2016 10:30 * Appointment; Provider: Fredy Pillai On [...]
--- OUTSIDE RECORDS SUMMARY | 2017-01-21 17:57 | XMS REPORT | Summary of Care ---
Author Author Rosas Robins, DALJIT, ,, Fredy M Organization Unknown Address [address] [place], [place] [phone] Phone Unavailable Care Team Providers Care Patient Service Associate Name Role Phone Rosas Robins, DALJIT, ,, [...] Gallbladder Surgery History of Hysterectomy URINE CULTURE [id number] Ordered:02-Jul-2015 Immunization Name Dates Details Immunizations not [...]
--- OUTSIDE RECORDS SUMMARY | 2017-01-21 17:57 | XMS REPORT | Summary of Care ---
Author Author Denny Foster M.D. Unknown Address Unknown Phone Unavailable Care Team Providers Care Track Patrol Name Role Phone Rosas Robins, FACS, ,, M Unavailable Unavailable Kristin Robins, L Unavailable Unavailable Viv Robins, W Unavailable Unavailable Nicole Cisneros Unavailable Unavailable Unavailable Unavailable Functional Status Name Dates Details Functional status health issues are not documented Status: Name Dates Details Cognitive status health issues are not documented Status: Problems Name Dates Details Diarrhea (787.91, R19.7) Status: Active Abdominal cramping in left lower quadrant (789.04, R10.32) Status: Active Abdominal cramping in right lower quadrant (789.03, R10.31) Status: Active Left buttock pain (729.1, M79.1) Status: Active Left hip pain (719.45, M25.552) Status: Active Decreased hearing of both ears (389.9, H91.93) Status: Active Left otitis media with effusion (381.4, H66.92) Status: Active Hyperlipidemia (272.4, E78.5) Status: Active Esophageal reflux [...] Status: Active Dementia (294.20, F03.90) Status: Active 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 Esophageal reflux (530.81, K21.9) Status: Active Eustachian tube dysfunction, bilateral (381.81, H69.83) Status: Active Gastritis (535.50, K29.70) Status: Active Hyperlipidemia (272.4, E78.5) Status: Active Hypertension (401.9, I10) Status: Active Melena (578.1, K92.1) Status: Active Neurogenic bladder (596.54, N31.9) Status: [...] 23-Jun-2016 Prevnar 13 Intramuscular Suspension Lot #: [id number] on: 22-Jul-2016 Family History Name Dates Details Family history of kidney stones (V18.69, Z84.1) Status: Active Name Dates Details Family history of Hay Fever Status: Active Social History Name Dates Details - Status: Name Dates Details Never smoker Vital Signs Date Test Result Details 22-Sep-2016 15:15 BP Systolic 124 mm[Hg] Status: Comments: Location: ; Position: BP Diastolic 70 mm[Hg] Status: Comments: Location: ; Position: Temperature 97.9 f Status: Comments: Method: Heart Rate 59 /min Status: Comments: Location: ; Physical Findings 97 Status: Comments: O2 Saturation 01-Sep-2016 14:26 Temperature 97.7 f Status: Comments: [...] documented Planned Encounters Appointment; Provider: Fredy Pillai M.D.|VibhaCALIRIO Fatima FACS, On 06-Jul-2017 08:45 Appointment; Provider: Brooke Cisneros M.D. On 05-Nov-2016 13:00 Appointment; Provider: Ko Brothers M.D. On 01-Oct-2016 10:45 Instructions Name Dates Details Instructions not documented Encounters Appointment; Ko Brothers M.D. Encounter Diagnosis: Problem not documented On 01-Sep-2016 14:15 Appointment; Ramin Nam M.D. Encounter Diagnosis: Problem not documented On 24-Aug-2016 13:30 Appointment; Zeeshan Green M.D.|Ramesh.A.C.SDALJIT Solitario|DALJIT Robins, Encounter Diagnosis: Problem not documented On 11-Aug-2016 11:15 Appointment; Zeeshan Green M.D.|F.A.C.S.|MBasim,DALJIT|Julienne,DALJIT, Encounter Diagnosis: Problem not documented On 04-Aug-2016 09:00 Appointment; Keya, Mehrdad Encounter Diagnosis: Problem not documented On 04-Aug-2016 08:30 Appointment; Ramin Nam M.D. Encounter Diagnosis: Problem not documented On 22-Jul-2016 10:15 Appointment; Fredy Pillai M.D.|F.A.C.S.|Julienne,DALJIT|Julienne,DALJIT, Encounter Diagnosis: Problem not documented On 05-Jul-2016 [...] documented On 05-Nov-2015 08:15 Appointment; Fredy Pillai M.D.|F.A.C.S.|Julienne,DALJIT|Julienne,DALJIT, Encounter Diagnosis: Problem not documented On 02-Jul-2015 08:45 Appointment; Yared Nazario M.D. Encounter Diagnosis: Problem not documented On 31-Oct-2014 14:15"
--- OUTSIDE RECORDS SUMMARY | 2017-01-21 17:57 | XMS REPORT | Continuity of Care Document ---
Author Author Diamond [address] [facility] Address [address] [place] [address] [place] [address] Phone Care Team Providers Care Business Manager [employer] Name Role Phone Terrence Kulkarni MARICARMEN Unavailable Payers Payer name Insurance type Covered constitution party ID Authorization(s) Unknown Problems Condition Effective Dates (start - stop) Clinical Status Nontoxic multinodular goiter - *Chronic Rectocele - *Resolved Hypertension, Unspecified - *Chronic Hypercholesterolemia - *Chronic Nontoxic multinodular goiter - *Chronic GERD - *Chronic Rectal bleeding - Episodic Dysphagia - Episodic Hypertension - *Chronic Hypercholesterolemia - *Chronic GERD (gastroesophageal reflux disease) - *Chronic Fatigue / Malaise - *Chronic Multinodular thyroid - *Chronic Nontoxic multinodular goiter - *Stable Mild cognitive impairment with memory loss - *Chronic Memory loss - *Chronic Hypertension, Unspecified - *Chronic Hypercholesterolemia - *Chronic Influenza Vaccine - Lumbago - *Chronic 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 Spinal stenosis of lumbar region - *Chronic Pronation of foot - *Chronic Family History Family Member Diagnosis Age At Onset Status Son (Unknown) Obesity Yes Maternal grandmother (Unknown) Obesity Yes Father (Unknown) CAD Yes Maternal grandmother (Unknown) Obesity Yes Mother (Unknown) Heart disease Yes Brother (Unknown) Obesity Yes Brother (Unknown) Heart disease Yes Aunt (Unknown) Obesity Yes uncle (Unknown) CAD Yes uncle (Unknown) Cancer - stomach Yes Mother (Unknown) Obesity Yes Aunt (Unknown) Diabetes Yes Mother (Unknown) Hypertension Yes Mother () Cancer - colon Yes Paternal grandmother (Unknown) Obesity Yes Father (Unknown) Cancer - lymphoma Yes Father (Unknown) Heart disease Yes Brother (Alive) Melanoma Yes Son (Unknown) Epilepsy, mentally retarded Yes Brother (Alive) Hypertension Yes Paternal grandmother (Unknown) Obesity Yes Daughter (Unknown) Obesity Yes Maternal grandmother (Unknown) CVA (Stroke) Yes Brother (Unknown) Cancer - procreatic Yes Daughter (Unknown) Allergies Yes Daughter (Unknown) Obesity Yes Father (Unknown) Hypertension Yes Mother (Unknown) Myocardial infarction Yes Sister () Cancer - breast Yes Father (Unknown) Obesity Yes Brother (Unknown) Cancer - procreatic Yes Brother (Unknown) Hypertension Yes Aunt (Unknown) CVA (Stroke) Yes Mother (Unknown) Diabetes Yes uncle (Unknown) Diabetes Yes Paternal grandmother (Unknown) Cancer - stomach Yes Sister (Alive) Obesity Yes Brother (Alive) disabling eye virus Yes uncle (Unknown) CVA (Stroke) Yes Social History Social History Element Description Quantity Unknown Allergies, Adverse Reactions, Alerts Substance Reaction Severity Status PENICILLINS Trouble Breathing Unknown PROPRANOLOL Unknown CYCLOBENZAPRINE HCL Unknown CLARITHROMYCIN Unknown ACETAMINOPHEN Unknown HYDROCODONE BITARTRATE Unknown ROFECOXIB Unknown ATORVASTATIN CALCIUM muscle weakness Unknown NIACIN hot flashes and itching Unknown EZETIMIBE Unknown Medications Medication Instructions Dosage Effective Dates (start - stop) Status flaxseed oral powder take 2 Tablespoon by Oral route every day 0 2011 - Active lutein 20 mg capsule take 1 by Oral route every day 0 - Active Prilosec OTC 20 mg tablet,delayed release take 1 by Oral route every day 0 - Active multivitamin tablet take 1 tablet by oral route every day with food 0 - Active Calcium 600 + D(3) 600 mg calcium-200 unit capsule take 1 Tablet by Oral route every day 0 - Active Vitamin C 500 mg capsule,extended release take 1 by Oral route 0 2012 - Active ibuprofen 200 mg capsule take 1 capsule (200MG) by oral route every 6 hours as needed 200 MG - Active docusate calcium 240 mg capsule take 1 capsule (240MG) by oral route every day as needed 240 MG - Active aspirin 325 mg tablet take 1 tablet (325MG) by oral route every day 325 MG - Active pravastatin 40 mg tablet take one tab po daily - Active verapamil 80 mg tablet Take 1 tablet by mouth 3 times a day. - Active spironolactone 100 mg tablet TAKE 1 TABLET BY MOUTH DAILY ALTERNATING WITH 1/ 2 TAB EVERY OTHER DAY - Active Immunizations Vaccine Date Status Comments Flu (split) (3 yrs or older) completed Td (adult) completed - Completed reason: source unspecified pneumo (2 yrs or older) (PPV23) completed - Completed reason: source unspecified flu (split) (3 yrs or older) completed - Completed reason: other registry Zoster completed - Completed reason: other registry Results Test Name Date and Time Measure Units Reference Range Abnormal Flag Comments Unknown Vital Signs Date / Time: Height Weight Pulse Rate Blood Pressure Temperature /13:42:00 61.97 in 180.50 lbs 72 /min 128/84 mm[Hg] Procedures Procedure Date Unknown Encounters Encounter Location Date Patient Visit [facility] Patient Visit [facility] Patient Visit [facility] Patient Visit [facility] Patient Visit [facility] Patient Visit [facility] Patient Visit [facility] Patient Visit [facility] Patient Visit [facility] Patient Visit [facility] Patient Visit [facility] Patient Visit [facility] Patient Visit [facility] Patient Visit [facility] Patient Visit [facility] Advance Directives Directive Effective Date Unknown
--- OUTSIDE RECORDS SUMMARY | 2017-01-21 17:57 | XMS REPORT | Referral Summary ---
Author Author [facility], Family Medicine Organization [facility] Address Unknown Phone Unavailable Care Team Providers Care Military Technology Specialist Name Role Phone Flo Pineda Primary Care Physician [phone] Encounter Date(s): 10/23/15 - 10/23/15 [facility], [address] [place] [address] Discharge Diagnosis: Dementia Discharge Diagnosis: Hypertension Discharge Diagnosis: Hearing loss Discharge Disposition: 01-Home or Self Care Attending Physician: Bashir Pineda MD Admitting Physician: Bashir Pineda MD Vital Signs Most recent to 1 oldest [Reference Range]: Temperature Tympanic 36.7 degC [36.6-38.1 degC] (10/23/15 10:14 AM) Peripheral Pulse 85 bpm Rate [60-100 bpm] (10/23/15 10:14 AM) Blood Pressure 166/78 mmHg [90-140/60-90 mmHg] *HI* (10/23/15 10:14 AM) Problem List Condition Effective Dates Status [...] 0 Refill(s) Start Date: 05/31/14 Status: Ordered donepezil 5 mg oral tablet 5 mg 1 tabs, Oral, Bedtime (once a day), # 30 tabs, 0 Refill(s), Pharmacy: [facility], 1 tabs Oral Bedtime (once a day) Start Date: 10/23/15 Status: Ordered Dulcolax Stool Softener mg, Oral, [...] BY MOUTH ONCE DAILY, # 90 tabs, 1 Refill(s), Pharmacy: [facility], TAKE ONE TABLET BY MOUTH ONCE DAILY Start Date: 10/23/15 Status: Ordered spironolactone 100 mg oral tablet See Instructions, TAKE ONE TABLET BY MOUTH ONCE DAILY ALTERNATING WITH ONE- HALF TABLET EVERY OTHER DAY., # 72 tabs, 1 Refill(s), Pharmacy: [facility], TAKE ONE TABLET BY MOUTH ONCE DAILY ALTERNATING WITH ONE-HALF TABLET EVERY OTH... Start Date: 10/23/15 Status: Ordered verapamil 80 mg oral tablet See Instructions, TAKE ONE TABLET BY MOUTH THREE TIMES DAILY, # 90 tabs, 1 Refill(s), Pharmacy: [facility], TAKE ONE TABLET BY MOUTH THREE TIMES DAILY Start Date: 10/23/15 Status: Ordered Results Chemistry Most recent to 1 oldest [Reference Range]: Sodium Lvl [135-144 143 mEq/L mEq/L] (1/21/16 11:28 AM) Potassium Lvl 4.6 mEq/L [3.5-5.2 mEq/L] (10/23/15 11:28 AM) Chloride [99-111 107 mEq/L mEq/L] (10/23/15 11:28 AM) CO2 [22-31 mEq/L] 27 mEq/L (10/23/15 11:28 AM) AGAP [3-20] 9 (10/23/15 11:28 AM) BUN [10-20 mg/dL] 32 mg/dL *HI* (10/23/15 11:28 AM) Glucose Lvl [70-99 87 mg/dL mg/dL] (10/23/15 11:28 AM) Creatinine Lvl 0.68 mg/dL [0.57-1.11 mg/dL] (10/23/15 11:28 AM) eGFR [>60 mL/min] >60 mL/min 1 (10/23/15 11:28 AM) Calcium Lvl 9.5 mg/dL [8.9-10.5 mg/dL] (10/23/15 11:28 AM) TSH with Reflex Free 0.99 T4 [0.35-4.94] (10/23/15 11:28 AM) 1Result Comment: Multiply eGFR results by [...] smoker Assessment and Plan Extracted from: Title: Get acquainted, memory loss Author: Bashir Pineda MD Date: Assessment/Plan Dementia Ordered: donepezil, 5 mg 1 tabs, Oral, Bedtime (once a day), # 30 tabs, 0 Refill(s), Pharmacy: [facility], 1 tabs Oral Bedtime (once a day) Basic Metabolic Panel TSH with Reflex Free T4 Vitamin B12 Level Hearing loss Hypertension Orders: pravastatin, See Instructions, TAKE ONE TABLET BY MOUTH ONCE DAILY, # 90 tabs, 1 Refill(s), Pharmacy: [facility], TAKE ONE TABLET BY MOUTH ONCE DAILY spironolactone, See Instructions, TAKE ONE TABLET BY MOUTH ONCE DAILY ALTERNATING WITH ONE-HALF TABLET EVERY OTHER DAY., # 72 tabs, 1 Refill(s), Pharmacy: [facility], TAKE ONE TABLET BY MOUTH ONCE DAILY ALTERNATING WITH ONE-HALF TABLET EVERY OTH... verapamil, See Instructions, TAKE ONE TABLET BY MOUTH THREE TIMES DAILY, # 90 tabs, 1 Refill(s), Pharmacy: [facility], TAKE ONE TABLET BY MOUTH THREE TIMES DAILY We discussed the diagnosis of dementia. Tentatively I think she probably does have early dementia most likely Alzheimer's type. We talked about limitations/expectations with medications for Alzheimer's disease and will start her on donepezil 5 mg daily. We discussed adverse effects especially including drowsiness and diarrhea. Follow-up in one month to reassess that. Additional agenda in one month as to consolidate understanding of her health history which was mostly addressed today. Labs ordered as workup for reversible causes of dementia-TSH, B-12 level, and metabolic panel.
--- OUTSIDE RECORDS SUMMARY | 2017-01-21 17:57 | XMS REPORT ---
Author Author GENERATED, SYSTEM Organization Unknown Address Unknown Phone Unavailable Care Team Providers Care Single Fold Machine Operator Name Role Phone UNASSIGNED DOCTORMD DOCTOR PP [phone] Reason For Visit Chief Complaint RIGHT KNEE PAIN Social History Functional Status Vital Signs Results Problems Encounter Diagnosis No relevant problems exist. Additional Problems * Dyslipidemia Status:Active. * History of Hypertension Status:Active. * History of TIA Status:Active. * Near Syncope Status:Active. * Symptomatic Sinus Bradycardia Status:Active. Encounters Encounter Diagnosis No relevant problems exist. [...]
--- OUTSIDE RECORDS SUMMARY | 2017-01-21 17:58 | XMS REPORT | Summary of Care ---
Author Author Deacon Camarena D.O. Unknown Address [address] [place], [place] [id number] Phone Unavailable Care Team Providers Care Hot Dip Plater Name Role Phone Rosas Robins, FACS, ,, M Unavailable Unavailable Viv Robins, W Unavailable Unavailable Ramin Nam PP Unavailable [...] FOOD EACH MORNING * Quantity: 1 Refills: 0 Ramin Nam M.D.* Started 19-Nov-2015 [id number] Tablet Bottle Allergies and Adverse Reactions Name [...] ml/min (Better) Range: >60 EST GFR, NON-AFR MEXICAN >60 ml/min (Better) Range: >60 Comments: EST GFR is reported in ml/min per 1.73 m2 of body surface area. For -[place], please multiple result by 1.2.----- GLUCOSE 108 [...]
--- OUTSIDE RECORDS SUMMARY | 2017-01-21 17:58 | XMS REPORT | Summary of Care ---
Author Author Ramin Nam M.D. Organization Unknown Address [address] [place], [place] [id number] Phone Unavailable Care Team Providers Care Pilot Can Router Name Role Phone Rosas Robins, FACS, ,, M Unavailable Unavailable Mell Nam M.D. [...] Status: Active Hyperlipidemia (272.4, E78.5) Status: Active Medications Name Dates Details Aldactone [...] Refills: 0 Ramin Nam M.D.* Started 19-Nov-2015 [id number] Tablet Bottle Allergies and Adverse Reactions Name [...]
--- OUTSIDE RECORDS SUMMARY | 2017-01-21 17:58 | XMS REPORT | Summary of Care ---
Author Author Zev Robins, Ko Anderson Unknown Address Unknown Phone Unavailable Care Team Providers Care Survey Director Name Role Phone Rosas Robins, FACS, ,, M Unavailable Unavailable Viv Robins, W Unavailable Unavailable Ko Brothers M.D. Unavailable Unavailable Nicole Cisneros Unavailable Unavailable [...] Left hip pain (719.45, M25.552) Status: Active Hyperlipidemia (272.4, E78.5) Status: Active Esophageal reflux (530.81, K21.9) Status: Active Viral gastroenteritis (008.8, A08.4) Status: Active Urinary retention (788.20, R33.9) Status: Active Urge incontinence (788.31, N39.41) Status: Active Upper GI bleed (578.9, K92.2) Status: Active Peripheral neuropathy (356.9, G62.9) Status: Active Osteoarthritis (715.90, M19.90) Status: Active Neurogenic bladder (596.54, N31.9) Status: Active Melena (578.1, K92.1) Status: Active Hypertension (401.9, I10) Status: Active Gastritis (535.50, K29.70) Status: Active Eustachian tube dysfunction, bilateral (381.81, H69.83) Status: Active Dementia in Alzheimer's disease (331.0, G30.9) Status: Active Dementia (294.20, F03.90) Status: Active 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 * Refills: 0 Ramin Nam M.D. Start 22-Jul-2016 Active Fluticasone Propionate 50 MCG/ACT Nasal Suspension * Refills: 0 * Start 22-Sep-2016 Active Stool Softener 100 MG Oral Tablet * Refills: 0 * Start 18-Aug-2012 Active Lutein 20 MG Oral Tablet * Refills: 0 * Start 18-Aug-2012 Active Donepezil HCl - 10 MG Oral Tablet TAKE 1 TABLET DAILY WITH FOOD EACH MORNING * Quantity: 1 Refills: 6 Ramin Nam M.D. Start 19-Nov-2015 Active 30 Tablet Bottle Bethanechol Chloride 25 MG Oral Tablet TAKE ONE TABLET BY MOUTH ONCE DAILY * Quantity: 90 Refills: 3 Rosas Robins, DALJIT, , , Fredy Farooq * Start 17-May-2014 Active Allergies and Adverse Reactions Name [...] 23-Jun-2016 Prevnar 13 Intramuscular Suspension Lot #: [id number] on: 22-Jul-2016 Family History Name Dates Details Family history of kidney stones (V18.69, Z84.1) Status: Active Name Dates Details Family history of Hay Fever Status: Active Social History Name Dates Details - Status: Name Dates Details Never smoker Vital Signs Date Test Result Details 01-Oct-2016 10:43 Temperature 97 f Status: Comments: Method: Heart Rate 62 /min Status: Comments: Location: ; Weight 153 lb Status: Physical Findings 98 Status: Comments: O2 Saturation Body Mass Index Calculated 27.98 kg/m2 Status: Body Surface Area Calculated 1.71 m2 Status: 22-Sep-2016 15:15 BP Systolic 124 mm[Hg] Status: BP Diastolic 70 mm[Hg] Status: Temperature 97.9 f Status: Comments: Method: Heart Rate 59 /min Status: Comments: Location: ; Physical Findings 97 Status: Comments: O2 Saturation Results Date Description Value Details Results not documented Plan of Care Name Dates Details Planned Observations Planned Goals not documented Planned Encounters Appointment; Provider: Fredy Pillai M.D.|VibhaC.SDALJIT Solitario|DALJIT Robins, On 06-Jul-2017 08:45 Appointment; Provider: Brooke Cisneros M.D. On 05-Nov-2016 13:00 Instructions Name Dates Details Instructions not documented Encounters Appointment; Denny Foster M.D. Encounter Diagnosis: Problem not documented On 22-Sep-2016 14:09 Appointment; Ko Brothers M.D. Encounter Diagnosis: Problem not documented On 01-Sep-2016 14:15 Appointment; Ramin Nam M.D. Encounter Diagnosis: Problem not documented On 24-Aug-2016 13:30 Appointment; Zeeshan Green M.D.|VibhaC.SSean|DALJIT Robins|DALJIT Robins, Encounter Diagnosis: Problem not documented On 11-Aug-2016 11:15 Appointment; Zeeshan Green M.D.|Tian.C.S.|DALJIT Robins|DALJIT Robins, Encounter Diagnosis: Problem not documented On 04-Aug-2016 09:00 Appointment; Laura, Endoscopy Encounter Diagnosis: Problem not documented On 04-Aug-2016 08:30 Appointment; Ramin Nam M.D. Encounter Diagnosis: Problem not documented On 22-Jul-2016 10:15 Appointment; Fredy Pillai M.D.|Yobani|DALJIT Robins|Julienne,DALJIT, Encounter Diagnosis: Problem not documented [...] documented On 05-Nov-2015 08:15 Appointment; Fredy Pillai M.D.|Yobani|DALJIT Robins|Julienne,DALJIT, Encounter Diagnosis: Problem not documented On 02-Jul-2015 08:45 Appointment; Yared Nazario M.D. Encounter Diagnosis: Problem not documented On 31-Oct-2014 14:15"
--- OUTSIDE RECORDS SUMMARY | 2017-01-21 17:58 | XMS REPORT | Referral Summary ---
Author Author [facility] Organization [facility] Address Unknown Phone Unavailable Care Team Providers Care Commercial Lender Name Role Phone Flo Pineda Primary Care Physician [phone] Encounter VC Date(s): 07/29/15 - 07/29/15 [facility] [address] [place] [address] A[place] [id number] Discharge Diagnosis: Chronic fatigue Discharge Diagnosis: Aortic stenosis Discharge Diagnosis: Neuropathy Discharge Diagnosis: Depression Discharge Disposition: 01-Home or Self Care Attending Physician: Terrence Kulkarni MD Admitting Physician: Terrence Kulkarni MD Vital Signs Most recent to 1 oldest [Reference Range]: Temperature Tympanic 36.4 degC [36.6-38.1 degC] *LOW* (07/29/15 9:24 AM) Respiratory Rate 20 br/min [14-20 br/min] (07/29/15 9:24 AM) Blood Pressure 158/84 mmHg [90-140/60-90 mmHg] *HI* (07/29/15 9:24 AM) SpO2 98 % (07/29/15 9:24 AM) Problem List Condition Effective Dates Status [...] day), # 30 tabs, 0 Refill(s), Pharmacy: [facility], 1 tabs Oral [...] DAILY, # 90 tabs, 1 Refill(s), Pharmacy: [facility], TAKE ONE TABLET BY MOUTH ONCE DAILY Start Date: 10/23/15 Status: Ordered spironolactone 100 mg oral tablet See Instructions, TAKE ONE TABLET BY MOUTH ONCE DAILY ALTERNATING WITH ONE- HALF TABLET EVERY OTHER DAY., # 72 tabs, 1 Refill(s), Pharmacy: [facility], TAKE ONE TABLET BY MOUTH ONCE DAILY ALTERNATING WITH ONE-HALF TABLET EVERY OTH... Start Date: 10/23/15 Status: Ordered verapamil 80 mg oral tablet See Instructions, TAKE ONE TABLET BY MOUTH THREE TIMES DAILY, # 90 tabs, 1 Refill(s), Pharmacy: [facility], TAKE ONE TABLET BY MOUTH THREE TIMES DAILY Start Date: 10/23/15 Status: Ordered Results Hematology Most recent to 1 oldest [Reference Range]: WBC [4.8-10.8 4.6 10*3/uL 10*3/uL] *LOW* (07/29/15 10:40 AM) RBC [4.00-5.20] 4.86 (07/29/15 10:40 AM) Hgb [12.0-16.0 14.8 gm/dL gm/dL] (07/29/15 10:40 AM) Hct [37.0-47.0 %] 43.5 % (07/29/15 10:40 AM) MCV [82.0-99.0 fL] 89.5 fL (07/29/15 10:40 AM) MCH [27.0-32.0 pg] 30.5 pg (07/29/15 10:40 AM) MCHC [32.0-36.0 34.0 gm/dL gm/dL] (07/29/15 10:40 AM) RDW [11.5-14.5 %] 12.3 % (07/29/15 10:40 AM) Platelet [150-400 211 10*3/uL 10*3/uL] (07/29/15 10:40 AM) MPV [8.8-14.8 fL] 10.1 fL (07/29/15 10:40 AM) Immature 0.0 % Granulocytes (07/29/15 10:40 AM) [0.0-1.0 %] Neutrophils [51-75 54 % %] (07/29/15 10:40 AM) Lymphocytes [20-46 33 % %] (07/29/15 10:40 AM) Monocytes [4-11 %] 10 % (07/29/15 10:40 AM) Eosinophils [0-4 %] 2 % (07/29/15 10:40 AM) Basophils [0-2 %] 1 % (07/29/15 10:40 AM) Neutro Absolute 2.51 10*3 [1.90-7.00 10*3] (07/29/15 10:40 AM) Lymph Absolute 1.52 10*3 [0.80-3.30 10*3] (07/29/15 10:40 AM) Major Absolute 0.47 10*3 [0.30-1.00 10*3] (07/29/15 10:40 AM) Eos Absolute 0.07 10*3 [0.00-0.50 10*3] (07/29/15 10:40 AM) Baso Absolute 0.04 10*3 [0.00-0.20 10*3] (07/29/15 10:40 AM) Sed Rate [0-23] 12 (07/29/15 10:40 AM) Chemistry Most recent to 1 oldest [Reference Range]: Sodium Lvl [135-144 141 mEq/L mEq/L] (07/29/15 10:40 AM) Potassium Lvl 4.8 mEq/L [3.5-5.2 mEq/L] (07/29/15 10:40 AM) Chloride [99-111 106 mEq/L mEq/L] (07/29/15 10:40 AM) CO2 [22-31 mEq/L] 27 mEq/L (07/29/15 10:40 AM) AGAP [3-20] 8 (07/29/15 10:40 AM) BUN [10-20 mg/dL] 30 mg/dL *HI* (07/29/15 10:40 AM) Glucose Lvl [70-99 85 mg/dL mg/dL] (07/29/15 10:40 AM) Creatinine Lvl 0.66 mg/dL [0.57-1.11 mg/dL] (07/29/15 10:40 AM) eGFR [>60 mL/min] >60 mL/min 1 (07/29/15 10:40 AM) Calcium Lvl 9.6 mg/dL [8.9-10.5 mg/dL] (07/29/15 10:40 AM) Albumin Lvl [3.4-4.8 4.1 gm/dL gm/dL] (07/29/15 10:40 AM) Total Protein 6.3 gm/dL [6.2-8.1 gm/dL] (07/29/15 10:40 AM) Globulin [1.8-4.0 2.2 gm/dL gm/dL] (07/29/15 10:40 AM) ALT [0-55 U/L] 16 U/L (07/29/15 10:40 AM) AST [5-34 U/L] 21 U/L (07/29/15 10:40 AM) Alk Phos [40-150 62 U/L U/L] (07/29/15 10:40 AM) Bili Total [0.2-1.2 0.4 mg/dL mg/dL] (07/29/15 10:40 AM) 1Result Comment: Multiply eGFR results by [...] extraction2 2012 Colonoscopy3 02/18/12 Colonoscopy - Diverticuli 2006 Hernia [...] Patient Education Author: Terrence Kulkarni MD Date: Family Medicine Fatigue Fatigue is a feeling of tiredness, lack of energy, lack of motivation, or feeling tired all the time. Having enough rest, good nutrition, and reducing stress will normally reduce fatigue. Consult your caregiver if it persists. The nature of your fatigue will help your caregiver to find out its cause. The treatment is based on the cause. CAUSES There are many causes for fatigue. Most of the time, fatigue can be traced to one or more of your habits or routines. Most causes fit into one or more of three general areas. They are: Lifestyle problems Sleep disturbances. Overwork. Physical exertion. Unhealthy habits. Poor eating habits or eating disorders. Alcohol and/or drug use . Lack of proper nutrition (malnutrition). Psychological problems Stress and/or anxiety problems. Depression. Grief. Boredom. Medical Problems or Conditions Anemia. . Thyroid gland problems. Recovery from major surgery. Continuous pain. Emphysema or asthma that is not well controlled Allergic conditions. Diabetes. Infections (such as mononucleosis). Obesity. Sleep disorders, such as sleep apnea. Heart failure or other heart-related problems. Cancer. Kidney disease. Liver disease. Effects of certain medicines such as antihistamines, cough and cold remedies, prescription pain medicines, heart and blood pressure medicines, drugs used for treatment of cancer, and some antidepressants. SYMPTOMS The symptoms of fatigue include: Lack of energy. Lack of drive (motivation). Drowsiness. Feeling of indifference to the surroundings. DIAGNOSIS The details of how you feel help guide your caregiver in finding out what is causing the fatigue. You will be asked about your present and past health condition. It is important to review all medicines that you take, including prescription and non-prescription items. A thorough exam will be done. You will be questioned about your feelings, habits, and normal lifestyle. Your caregiver may suggest blood tests, urine tests, or other tests to look for common medical causes of fatigue. TREATMENT Fatigue is treated by correcting the underlying cause. For example, if you have continuous pain or depression, treating these causes will improve how you feel. Similarly, adjusting the dose of certain medicines will help in reducing fatigue. HOME CARE INSTRUCTIONS Try to get the required amount of good sleep every night. Eat a healthy and nutritious diet, and drink enough water throughout the day. Practice ways of relaxing (including yoga or meditation). Exercise regularly. Make plans to change situations that cause stress. Act on those plans so that stresses decrease over time. Keep your work and personal routine reasonable. Avoid street drugs and minimize use of alcohol. Start taking a daily multivitamin after consulting your caregiver. SEEK MEDICAL CARE IF: You have persistent tiredness, which cannot be accounted for. You have fever. You have unintentional weight loss. You have headaches. You have disturbed sleep throughout the night. You are feeling sad. You have constipation. You have dry skin. You have gained weight. You are taking any new or different medicines that you suspect are causing fatigue. You are unable to sleep at night. You develop any unusual swelling of your legs or other parts of your body. SEEK IMMEDIATE MEDICAL CARE IF: You are feeling confused. Your vision is blurred. You feel faint or pass out. You develop severe headache. You develop severe abdominal, pelvic, or back pain. You develop chest pain, shortness of breath, or an irregular or fast heartbeat. You are unable to pass a normal amount of urine. You develop abnormal bleeding such as bleeding from the rectum or you vomit blood. You have thoughts about harming yourself or committing suicide. You are worried that you might harm someone else. MAKE SURE YOU: Understand these instructions. Will watch your condition. Will get help right away if you are not doing well or get worse. Document Released: 07/16/2008 Document Revised: 12/11/2012 Document Reviewed: ExitCare Patient Information 2015 [employer]. This information is not intended to replace advice given to you by your health care provider. Make sure you discuss any questions you have with your health care provider. Follow Up With: Where: When: Terrence Kulkarni [address] [place] [address] Drive; [place] [address] Business (1) In 4 months 11/29/2015 Comments: Extracted from: Title: Office Visit Note Author: Terrence Kulkarni MD Date: 07/29/15 Assessment/Plan Aortic stenosis Her condition in this regard is unchanged. Chronic fatigue Lab will be rechecked. Ordered: C-Reactive Protein (CRP) CBC w/ Differential Comprehensive Metabolic Panel Sedimentation Rate Neuropathy Her condition is unchanged in this regard. Addendum Depression: She wants to defer additional medication at this time. by Terrence Kulkarni MD on July 29, 2015 11:23:48 CDT
--- OUTSIDE RECORDS SUMMARY | 2017-01-21 17:58 | XMS REPORT | Summary of Care ---
Author Author Ramin Nam M.D. Organization Unknown Address Unknown Phone Unavailable Care Team Providers Care Technology Sales Representative Name Role Phone Rosas Robins, FACS, ,, [...] M25.552) Status: Active Medications Name Dates Details Spironolactone 100 MG Oral Tablet TAKE ONE TABLET BY MOUTH ONCE DAILY, ALTERNATING WITH ON-HALF TABLET EVERY OTHER DAY. Quantity: 45 Ramin Nam M.D. * Start Active Verapamil HCl - 80 MG Oral Tablet TAKE ONE TABLET BY MOUTH THREE TIMES DAILY * Quantity: 90 Refills: 0 Viv M.D., Ramin Monte * Start 09-Jun-2016 Active Daily [...] On 24-Aug-2016 13:30 Appointment; Provider: Fredy Pillai M.D.|VibhaCSeanSALIRIO Solitario,DALJIT, On 05-Jul-2016 08:15 Instructions Name Dates Details Instructions not documented Encounters Appointment; Ramin Nam M.D. Encounter Diagnosis: Problem not documented On 17-Feb-2016 10:30 Appointment; Deacon Camarena D.O. Encounter Diagnosis: Problem not documented On 26-Nov-2015 08:20 Appointment; Ramin Nam M.D. Encounter Diagnosis: Problem not documented On 19-Nov-2015 11:00 Appointment; Yared Nazario M.D. Encounter Diagnosis: Problem not documented On 05-Nov-2015 08:15 Appointment; Fredy Pillai M.D.|Tian.C.SSean|DALJIT Robins|Julienne,DALJIT, Encounter Diagnosis: Problem not documented On 02-Jul-2015 08:45 Appointment; Yared Nazario M.D. Encounter Diagnosis: Problem not documented On 31-Oct-2014 14:15"
--- OUTSIDE RECORDS SUMMARY | 2017-01-21 17:58 | XMS REPORT | Summary of Care ---
Author Author Ramin Nam M.D. 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 * Start Active Pravastatin Sodium 40 MG [...] M.D. Start 19-Nov-2015 Active 30 Tablet Bottle Stool Softener 100 MG Oral Tablet * Refills: 0 * Start 18-Aug-2012 Active Lutein 20 MG Oral Tablet * Refills: 0 * Start 18-Aug-2012 Active Fluticasone Propionate 50 MCG/ACT Nasal Suspension * Refills: 0 * Start 22-Sep-2016 Active Tylenol 325 MG Oral Tablet TAKE 2 TABLETS EVERY 6 HOURS NEEDED. * Refills: 0 Ramin Nam M.D. Start 22-Jul-2016 Active Verapamil HCl - 80 MG Oral Tablet TAKE ONE TABLET BY MOUTH THREE TIMES DAILY * Quantity: 90 Refills: 0 Ramin Nam M.D. Start 09-Jun-2016 Active Allergies and Adverse Reactions Name Dates [...] 23-Jun-2016 Prevnar 13 Intramuscular Suspension Lot #: [id number] on: 22-Jul-2016 Family History Name Dates Details [...] Provider: Fredy Pillai M.D.,DALJIT, On 06-Jul-2017 08:45 Appointment; Provider: Brooke Cisneros M.D. On 05-Nov-2016 13:00 Interventions Provided Labs/Procedures/Imaging* BASIC METABOLIC PROFILE 1210; Done: Jul 22 2016 11:05AM * CBC w/ Auto Diff 7150; Done: Jul 22 2016 11:05AM Instructions* There are many exercise options for seniors.; Done: Medications/Immunizations Administered* Prevnar 13 Intramuscular Suspension; Done: 22 Jul 2016 Instructions Name Dates Details Instructions not documented Encounters Appointment; Fredy Pillai M.D., FACS, Encounter Diagnosis: [...] documented On 05-Nov-2015 08:15 Appointment; Fredy Pillai M.D.,[facility], Encounter Diagnosis: Problem not documented On 02-Jul-2015 08:45 Appointment; Yared Nazario M.D. Encounter Diagnosis: Problem not documented On 31-Oct-2014 14:15
--- OUTSIDE RECORDS SUMMARY | 2017-01-21 17:58 | XMS REPORT | Summary of Care ---
Author Ramin Lund M.D. Organization Unknown Address Unknown Phone Unavailable Care Team Providers Care Career Orientation Teacher Name Role Phone Rosas Robins, FACS, ,, [...] History of Hysterectomy BASIC METABOLIC PROFILE 1210 Ordered: 22-Jul-2016 HEMOGRAM 7305 Ordered: 22-Jul-2016 Immunization Name Dates Details Fluzone High-Dose 0.5 ML Intramuscular Suspension Prefilled Syringe on: 23-Jun-2016 Prevnar 13 Intramuscular Suspension Lot #: [id number] on: 22-Jul-2016 Family History Name Dates Details Family history of kidney stones (V18.69, Z84.1) Status: Active Name Dates Details Family history of Hay Fever Status: Active Social History Name Dates Details - Status: Name Dates Details Never smoker Vital Signs Date Test Result Details 24-Aug-2016 13:52 BP Systolic 128 mm[Hg] Status: Comments: Location: ; Position: BP Diastolic 76 mm[Hg] Status: Comments: Location: ; Position: Temperature 97.6 f Status: Comments: Method: Heart [...] documented Planned Encounters Appointment; Provider: Fredy Pillai M.D.|ALIRIO Winn FACS, On 06-Jul-2017 08:45 Instructions Name Dates Details Instructions not documented Encounters Appointment; Zeeshan Green M.D.|NicolasaSDALJIT Solitario|DALJIT Robins, Encounter Diagnosis: Problem not documented On 11-Aug-2016 11:15 Appointment; Zeeshan Green M.D.|VibhaC.SSean|ALIRIO Robins FACS, Encounter Diagnosis: Problem not documented On 04-Aug-2016 09:00 Appointment; Mehrdad Laura Encounter Diagnosis: Problem not documented On 04-Aug-2016 08:30 Appointment; Ramin Nam M.D. Encounter Diagnosis: Problem not documented On 22-Jul-2016 10:15 Appointment; Fredy Pillai M.D.|Yobani|Julienne,DALJIT|Julienne,DALJIT, Encounter Diagnosis: Problem not documented On 05-Jul-2016 [...] documented On 05-Nov-2015 08:15 Appointment; Fredy Pillai M.D.|Yobani|Julienne,DALJIT|Julienne,DALJIT, Encounter Diagnosis: Problem not documented On 02-Jul-2015 08:45 Appointment; Yared Nazario M.D. Encounter Diagnosis: Problem not documented On 31-Oct-2014 14:15"
--- OUTSIDE RECORDS SUMMARY | 2017-01-21 17:59 | XMS REPORT | Continuity of Care Document ---
Author Author [facility] Organization [facility] Address Unknown Phone Unavailable Allergies Medications Problems Procedures Results Test Result Range CBC WITH PLATELET AND DIFFERENTIAL - 01/21/17 12:21 SEGS 67.4 % NRG *BASOPHILS 0.7 % NRG *EOSINOPHILS 0.5 % NRG AUTOMATED DIFF PERFORMED NRG *LYMPHOCYTES 24.4 % NRG *MONOCYTES 7.0 % NRG *ABSOLUTE BASOPHILS 0.00 10*3/uL 0.00- 0.20 *ABSOLUTE EOSINOPHILS 0.00 10*3/uL 0.00- 0.50 *ABSOLUTE LYMPHOCYTES 1.40 10*3/uL 1.00- 3.00 *ABSOLUTE MONOCYTES 0.40 10*3/uL 0.30- 1.00 *ABSOLUTE NEUTROPHILS 3.80 10*3/uL 1.80- 7.80 MPV 7.7 fL 7.4-10.4 PLATELETS 172 10*3/uL 159-386 WBC 5.6 10*3/uL 3.6-11.2 RBC 4.84 3.63-4.92 HEMOGLOBIN 14.6 11.0-14.3 HEMATOCRIT 43.7 % 31.2-41.9 MCV 90.4 fL 79.0-98.0 MCH 30.2 pg 27.0-33.0 MCHC 33.3 32.0-36.0 RDW 13.0 % 12.3-17.0 RDWSD 41.1 37.1-47.8 COMPREHENSIVE METABOLIC PANEL - 01/21/17 12:21 BILIFUBIN TOTAL 0.20 0.20-1.00 TOTAL PROTEIN 6.5 6.4-8.2 ALBUMIN 3.2 3.4-5.0 *GLOBULIN 3.3 2.3-3.5 *A/G RATIO 1.0 1.5-2.2 ALK PHOS 58 U/L 46-116 ALT (SGPT) 20 U/L 16-63 AST (SGOT) 20 U/L 15-37 GFR ESTIMATION - 01/21/17 12:21 *GFR EST NON AFR GUINEAN 83 mL/min NRG *GRFA EST AFR AMER >90 mL/min NRG TSH - 01/21/17 12:21 TSH 1.057 u[IU]/L 0.340-4.820 DRUG SCREEN PLASMA - 01/21/17 12:21 ALCOHOL <0.003 NRG ACETAMINOPHEN <2 10-30 SALICYLATE 0.9 2.8-20.0 UR DRUGS OF ABUSE SCREEN - 01/21/17 12:26 *COCAINE NEGATIVE NEG <150 *BARBITURATES NEGATIVE NEG <200 *BENZODIAZEINE NEGATIVE NEG <200 *AMPHETAMINE NEGATIVE NEG <500 *CANNABINOIDS NEGATIVE NEG <50 *OPIATES NEGATIVE NEG <300 *PCP NEGATIVE NEG <25 URINALYSIS (CULTURE PRN) - 01/21/17 12:26 *URINE APPEARANCE CLEAR CLEAR *URINE BILIRUBIN NEGATIVE NEGATIVE *URINE BLOOD NEGATIVE NEGATIVE *URINE GLUCOSE NEGATIVE NEGATIVE *URINE KETONES NEGATIVE NEGATIVE *URINE NITRITES NEGATIVE NEGATIVE URINE PH 7.0 5.0-8.0 *URINE PROTEIN NEGATIVE NEGATIVE URINE SPECIFIC GRAVITY 1.010 <=1.005->= 1.030 *URINE UROBILINOGEN 0.2 0.2-1.0 *URINE COLOR YELLOW STRAW/YELL/DK YELL URINE MICROSCOPIC - 01/21/17 12:26 WBC 5-10 /[HPF] 0-5 RBC 0-1 /[HPF] 0-1 MUCOUS THREADS MODERATE /[LPF] NEGATIVE MICROSCOPIC EXAM PERFORMED PERFORMED NRG SQUAMOUS EP. CELLS MODERATE /[LPF] NEG- FEW RENAL EP. CELLS FEW /[LPF] NEG-FEW Encounters ACCT No. Visit Date/Time Discharge Status Pt. Type Provider Facility Loc./Unit Complaint [id number] 12/10/2013 13:41:00 12/10/2013 23 :59:59 [facility] Outpatient
--- OUTSIDE RECORDS SUMMARY | 2017-01-21 17:59 | XMS REPORT | Referral Summary ---
Author Author [facility] Organization [facility] Address Unknown Phone Unavailable Care Team Providers Care Pr Specialist Name Role Phone Jeannie Kulkarni Primary Care Physician [phone] Encounter VC Date(s): 07/29/15 - 07/29/15 [facility] [address] [place] [address] ANA Spencer [id number] Discharge Diagnosis: Chronic fatigue Discharge Diagnosis: Aortic [...] MOUTH ONCE DAILY, # 90 tabs, eRx: [facility], TAKE ONE TABLET BY MOUTH ONCE DAILY Start Date: 07/29/15 Status: Ordered spironolactone 100 mg oral tablet See Instructions, TAKE ONE TABLET BY MOUTH ONCE DAILY ALTERNATING WITH ONE- HALF TABLET EVERY OTHER DAY., # 72 tabs, [facility], TAKE ONE TABLET BY MOUTH ONCE DAILY ALTERNATING WITH ONE-HALF TABLET EVERY OTHER DAY. Start Date: 07/29/15 Status: Ordered verapamil 80 mg oral tablet See Instructions, TAKE ONE TABLET BY MOUTH THREE TIMES DAILY, # 270 tabs, [facility], TAKE ONE TABLET BY MOUTH [...] 1.52 10*3 [0.80-3.30 10*3] (07/29/15 10:40 AM) [place] Absolute 0.47 10*3 [0.30-1.00 10*3] (07/29/15 10:40 [...] 12/11/2012 Document Reviewed: ExitCare Patient Information 2015 [employer]. This information is not intended to replace advice given to you by your health care provider. Make sure you discuss any questions you have with your health care provider. Follow Up With: Where: When: Terrence Kulkarni [address] [place] [address] [address]; [facility] [place] [id number] [employer] (1) In 4 months 11/29/2015 Comments: Extracted [...]
[2017-01-21 18:15] VITALS: BP 142/70; PULSE 69; RESP 18; TEMP 97.8; O2SAT 97
[2017-01-21 18:18] VITALS: PULSE 69; RESP 18
--- NOTE | 2017-01-21 18:55 | NUR ---
ADMISSION 81 YEAR OLD FEMALE ADMITTED TO ROOM 196 AT AROUND 1725 FROM [facility] ([facility]). FAMILY WAS NOT PRESENT DURING ADMISSION, DPOA (DAUGHTER HERMELINDO ) IS AWARE OF ADMISSION. PATIENT WAS ACCOMPANIED BY EMS STAFF, DRESSED APPROPRIATE FOR SEASON, CLEAN AND WELL GROOMED, NO SKIN CONDITIONS NOTED. PATIENT HAS A RIGHT FOOT BRACE. PATIENT IS ALERT AND ORIENTED X 3. SPEECH IS CLEAR AND APPROPRIATE. PATIENT DID NOT HAD ANY VALUABLES DURING ADMISSION ONLY THE CLOTHES SHE WAS WEARING, FAMILY (MONIQUECARLOS MANUEL) SAID SHE WILL BRING HER CLOTHES AND HER WALKER TOMORROW. FAMILY WOULD PREFER PATIENT DOES NOT MAKE CALLS TO THEM IF SHE IS ANGRY AND UPSET, ONLY IF SHE CALM. PATIENT WAS ORIENTED TO UNIT. PATIENT ADMISSION STATEMENT IS " I DO NOT KNOW EXCEPT MY DAUGHTER DIDN'T WANT MME TO GET TONIGHT AT 6 PM. TAKES MEDICATIONS WHOLE. FLAT AFFECT.
--- NOTE | 2017-01-21 19:40 | NUR ---
SHIFT SUMMARY PATIENT HAS WAS UPSET DURING ADMISSION, AFTER A WHILE SHE WAS IN A BETTER MOOD, SHE CAME OUT TO THE DINING ROOM AND HAD SOME SNACKS, SHE IS ABLE TO MAKE NEEDS KNOWN, NO HALLUCINATIONS NOTED, NO INAPPROPRIATE BEHAVIORS NOTED, NO PRN MEDICATIONS GIVE. PATIENT DENIES ANY PAIN NEEDS OR CONCERNS AT THE MOMENT.
[2017-01-21 21:11] VITALS: BP 137/69; PULSE 63; RESP 18; TEMP 97.8; O2SAT 95
[2017-01-21 21:49] VITALS: RESP 18
[2017-01-21] MEDS ORDERED: LORAZEPAM 2 MG/ML INJECTION IM PRN (22:00)
[2017-01-21] MEDS ORDERED: LORAZEPAM 0.5 MG TABLET PO PRN (22:00)
[2017-01-21] MEDS ORDERED: PRN ORDERS MC (22:00)
[2017-01-21] MEDS ORDERED: HALOPERIDOL 0.5 MG TABLET PO PRN (22:00)
[2017-01-21] MEDS ORDERED: HALOPERIDOL 5 MG/ML INJECTION IM PRN (22:00)
[2017-01-21] MEDS ORDERED: [UNRECOGNIZED DRUG - CODE] PO (22:44)
[2017-01-21] MEDS ORDERED: GUAI100S35 PO (22:44)
[2017-01-21] MEDS ORDERED: RANI150T7 PO (22:44)
[2017-01-21] MEDS ORDERED: BISA10SU61 RECTALLY (22:44)
[2017-01-21] MEDS ORDERED: MAG355OR35 PO (22:44)
[2017-01-21] MEDS ORDERED: MAGN400O4 PO (22:44)
[2017-01-21] MEDS ORDERED: BETH25TA PO (22:44)
[2017-01-21] MEDS ORDERED: QUET25TA73 PO (22:44)
[2017-01-21] MEDS ORDERED: ACET-2321 PO (22:44)
[2017-01-21] MEDS ORDERED: BISM262O25 PO (22:44)
[2017-01-21] MEDS ORDERED: DONE10TA30 PO (22:44)
[2017-01-21] MEDS ORDERED: PRAVASTATIN 40 MG TABLET PO SCH (23:00)
[2017-01-21] MEDS: DONEPEZIL 10 MG TABLET PO SCH (23:00)
[2017-01-21] MEDS: BETHANECHOL 25 MG TABLET PO SCH (23:00)
[2017-01-21] MEDS ORDERED: BISMUTH SUBSALICYLATE 262mg/15ml ORAL LIQUID PO PRN (23:00)
[2017-01-21] MEDS ORDERED: LUTEIN 20 MG PO SCH (23:00)
[2017-01-21] MEDS: SPIRONOLACTONE 50 MG TABLET PO SCH (23:00)
[2017-01-21] MEDS ORDERED: GUAIFENESIN SYRUP 200 MG/10 ML PO PRN ×2 (23:00)
[2017-01-21] MEDS ORDERED: MAG-AL + SIM LIQUID 30 ML UDC PO PRN (23:00)
[2017-01-21] MEDS ORDERED: ACETAMINOPHEN 325 MG TABLET PO PRN (23:00)
[2017-01-21] MEDS ORDERED: BISACODYL 10 MG SUPPOSITORY RECTALLY PRN ×2 (23:00)
[2017-01-21] MEDS: VERAPAMIL 80 MG TABLET PO SCH (23:47)
[2017-01-21] MEDS: RANITIDINE 150 MG TABLET PO SCH (23:47)
[2017-01-21] MEDS: QUETIAPINE 25 MG TABLET PO SCH (23:47)
[2017-01-22 00:23] VITALS: Ht 165.1 cm; Wt 69.4 kg
--- NOTE | 2017-01-22 01:05 | NUR ---
Chart Check 24 hour chart check completed
--- NOTE | 2017-01-22 02:08 | NUR ---
Bed time Pt fell asleep at 2215. No sleep during day. Will continue to monitor
--- NOTE | 2017-01-22 02:27 | NUR ---
Mid shift status Pt is a new admit. Pt was sitting in her room in recliner at beginning of shift. Pt is alert x 3. Up SBA x 1 to walker. Pt is slightly unsteady. As of now she does not have her walker with her, but her daughter is coming by in morning to bring it to her as well as changes of clothes. Pt is pleasant and cooperative with assessment. When asked why she is in hospital, pt replied, "because my daughter hates me". Pt would not clarify why she feels her daughter hates her. She did go on to say "my daughter feels like she has to have her hands on everything." Pt makes her needs known, and has been using call light accordingly. Pt compliant with HS meds, taking whole without difficulty. Denies pain. Denies SOA. On report at shift change, it was reported that pt was talking about marrying the son of the maintenance coordinator at 6pm, and she was mad at family because they were keeping her from her capri. Pt did not discuss any of this with this nurse during the time I visited with her this shift. Pt has isolated in her room, reading magazines this shift. Pt currently sleeping. Bed rails up x 2 and alarm on. Will continue to monitor Addendum: 01/22/17 at 0255 by ALESSANDRA ANAYA RN Pt has not displayed any aggressive behaviors. No anxiety present. No PRNs given.
[2017-01-22] MEDS ORDERED: BISMUTH SUBSALICYLATE 262mg/15ml ORAL LIQUID PO PRN (05:00)
--- NOTE | 2017-01-22 07:00 | NUR ---
Sleep: Pt slept from 2215 to 0700: total of 9.25 hours.
--- NOTE | 2017-01-22 07:44 | NUR ---
Summary Pt has slept all night other than getting up 3 times to use BR. Pt alert x 3. Up SBA x 1 to ambulate. Pt has been pleasant and cooperative with cares. No displays of any verbal or physical aggression. No behaviors. No agitation. No PRNs given. Currently sleeping. Bed rails up x 2 and alarm on. Will continue to monitor.
[2017-01-22 08:47] VITALS: BP 150/69; PULSE 60; RESP 16; TEMP 97.6; O2SAT 98
[2017-01-22 08:55] VITALS: PULSE 60; RESP 16
[2017-01-22] MEDS ORDERED: LUTEIN 20 MG PO SCH (09:00)
[2017-01-22] MEDS ORDERED: BETHANECHOL 25 MG TABLET PO SCH (09:00)
[2017-01-22] MEDS ORDERED: DONEPEZIL 10 MG TABLET PO SCH (09:00)
[2017-01-22] MEDS ORDERED: PRAVASTATIN 40 MG TABLET PO SCH (09:00)
[2017-01-22] MEDS ORDERED: SPIRONOLACTONE 50 MG TABLET PO SCH (09:00)
[2017-01-22] MEDS ORDERED: QUETIAPINE 25 MG TABLET PO SCH (09:00)
[2017-01-22] MEDS ORDERED: VERAPAMIL 80 MG TABLET PO SCH (09:00)
[2017-01-22] MEDS: BETHANECHOL 25 MG TABLET PO SCH (09:23)
[2017-01-22] MEDS: SPIRONOLACTONE 50 MG TABLET PO SCH (09:23)
[2017-01-22] MEDS: QUETIAPINE 25 MG TABLET PO SCH ×2 (09:24→20:00)
[2017-01-22] MEDS: LUTEIN 10 MG PO SCH (09:24)
[2017-01-22] MEDS: VERAPAMIL 80 MG TABLET PO SCH ×3 (09:24→20:00)
[2017-01-22] MEDS: DONEPEZIL 10 MG TABLET PO SCH (09:24)
[2017-01-22] MEDS: MULTIVITAMIN PLAIN TABLET PO SCH (09:25)
--- NOTE | 2017-01-22 10:36 | HPPDOC ---
DANNY SHEETS V WORD PROCESSING SPECIALIST 01/22/17 1026: HPI - Adult Date DATE: 01/22/17 TIME: 10:19 General Chief Complaint: Dementia with behaviors History of Present Illness Patient is a 81-year-old female with a known history of Alzheimer's. She currently resides in a [facility] at a nursing facility. It is reported she has had increased aggression and agitation. She is obsessed with a friend's grandson and thinks that they are going to get . She did sneak out to his home and had to be returned to her facility. She was taken to [place] emergency room yesterday on 01/21 for medical evaluation and treatment. She was then accepted to the generations unit for further evaluation and treatment. She is seen this morning while getting dressed. She is alert, oriented and states that she "stayed in bed too long this morning". He discusses that her entire life she has been a "early riser". She does not appear to be in any distress and only complains of her chronic back pain. Vital signs normal this morning. Past Medical History Past Medical History Alzheimer's dementia. Hyperlipidemia Hypertension History of TIA Surgical History Patient's Surgical History: Appendectomy Cholecystectomy Hernia repair Hysterectomy Current Medications Home Meds Reported Medications Guaifenesin (Robafen) 100 Mg/5 Ml Liquid, 10 ML PO Q4HR Y for PRN ORDERS 01/21/17 Mag Hydrox/Al Hydrox/Simeth (Mi Acid Suspension) 30 Ml Suspension, 10-20 ML PO TID Y for PRN ORDERS 01/21/17 Acetaminophen (Tylenol) 325 Mg Tablet, 1-2 TAB PO Q6H Y for PRN ORDERS, #60 TAB 2 Refills 01/21/17 Bismuth Subsalicylate (Bismatrol) 262 Mg/15 Ml Oral.susp, 30 ML PO Q6H Y for PRN ORDERS 01/21/17 Bisacodyl (Dulcolax) 10 Mg Supp.rect, 1 SUPP RECTALLY DAILY Y for PRN ORDERS, SUPP 01/21/17 Ranitidine HCl (Ranitidine HCl) 150 Mg Tablet, 150 MG PO HS, TAB Take 1 tablet, by mouth, 1 time a day (at BEDTIME). 01/21/17 Quetiapine Fumarate (Quetiapine Fumarate) 25 Mg Tablet, 25 MG PO BID, TAB 01/21/17 Donepezil HCl (Donepezil HCl) 10 Mg Tablet, 1 TAB PO DAILY, #30 TAB 5 Refills 01/21/17 Bethanechol Chloride (Bethanechol Chloride) 25 Mg Tablet, 1 TAB PO DAILY, TAB BEST ON EMPTY STOMACH 01/21/17 Acetaminophen (Tylenol) 500 Mg Tablet, 1 - 2 TAB PO PRN 03/15/12 Ascorbic Acid (Vitamin C) 100 Mg Tablet, 100 MG PO DAILY 03/15/12 Verapamil Hcl (Verapamil Hcl) 80 Mg Tablet, 80 MG PO TID 03/15/12 Spironolactone (Spironolactone) 50 Mg Tablet, 50 MG PO DAILY 03/15/12 Docusate Sodium (Colace) 100 Mg Capsule, 100 MG PO DAILY 02/17/12 Pravastatin Sodium (Pravastatin Sodium) 40 Mg Tablet, 40 MG PO DAILY 02/17/12 Lutein (Lutein) 20 Mg Capsule, 20 MG PO DAILY 02/17/12 Omeprazole Magnesium (Prilosec Otc) 20 Mg Tablet.dr, 20 MG PO DAILY 02/17/12 Aspirin (Aspirin) 325 Mg Tablet.dr, 325 MG PO DAILY 02/17/12 Multivitamins (Multivitamin) 1 Tab Tablet, 1 TAB PO DAILY 02/17/12 Calcium Carbonate/Vitamin D3 (Calcium + D 600 Mg Tablet) 1 Tab Tablet, 1 TAB PO DAILY 02/17/12 Ibuprofen (Ibuprofen) 200 Mg Capsule, 200 MG PO Y 02/17/12 Allergies: Coded Allergies: Penicillins (Verified Allergy, Severe, ANAPHYLACTIC SHOCK, 01/21/17) atorvastatin calcium (Verified Allergy, Unknown, MUSCLE WEAKNESS, 01/21/17) clarithromycin (Verified Allergy, Unknown, 01/21/17) cyclobenzaprine HCl (Verified Allergy, Unknown, 01/21/17) ezetimibe (Verified Allergy, Unknown, 02/17/12) hydrocodone bit (Verified Allergy, Unknown, 01/21/17) niacin (Verified Allergy, Unknown, HOT FLASHES AND ITCHING, 01/21/17) propranolol (Verified Allergy, Unknown, 02/17/12) rofecoxib (Verified Allergy, Unknown, 02/17/12) simvastatin (Verified Allergy, Unknown, ELEVATED LIVER ENZYMES, 01/21/17) Family History Family History: unable to obtain family hx Social History Smoking Status: Never smoker Housing: [facility] Advance Directives: Yes DNR, Yes DPOA for Healthcare Only Social History Comments PCP Dr Cisneros ([place]) Review of Systems Musculoskeletal General: pain (Back pain) All Other Systems All Other Systems: Reviewed (remainder of 10-point ROS Neg.) Physical Exam General General Nourishment: well nourished, well developed Vital Signs Vital Signs Date Time Temp Pulse Resp B/P Pulse Ox O2 Delivery O2 Flow Rate FiO2 01/22/17 08:47 97.6 60 16 150/69 98 Room Air Height (Feet): 5 Height (Inches): 5.00 Eyes Brief: FOUND: EOMI, PERRL ENMT Brief: FOUND: mucosa moist, normal dentition, NOT FOUND: pharnyx erythema Respiratory Brief: FOUND: clear all moore, equal bilaterally Cardiovascular (brief) Cardiac Brief: FOUND: murmur, regular rate, regular rhythm Abdomen (brief) Abdominal Brief: FOUND: BS normo active x4, soft Integumentary (brief) Integumentary Brief: FOUND: dry, pink, warm Neurologic (brief) Neurological Brief: FOUND: cranial 2-12 intact Neurologic RN Documented GCS Eye Opening: Verbal: Motor: Total: Psychiatric (brief) FOUND: alert, attentive, normal affect, oriented Laboratory Laboratory Tests Test 01/22/17 07:02 Hemoglobin A1c 5.6% Assessment & Plan Problems: (1) Cognitive and behavioral changes Status: Acute (2) Alzheimer's dementia Status: Chronic (3) Hyperlipidemia Status: Chronic (4) Hypertension (5) History of TIAs Status: Chronic Plan/Intensity of Service Agree with admission to the [facility] unit for further psychiatric evaluation and treatment Monitor blood pressure and continue on Verapamil Agree with continuation of other chronic home medications. Tylenol as needed for chronic back pain Encourage patient to participate in unit activities and provide a safe environment Psychiatric management as per Dr Arguello The hospitalist service will continue to follow patient and medical manage her existing medical comorbidities. At time of discharge medical care will return to PCP in Dr Blayne Laura Code Status Do Not Resuscitate Hospital Course Summary Disclaimer The hospital course summary below is not to be considered part of the above Progress Note. Hospital Course Summary Agree with admission to the generations unit for further psychiatric evaluation and treatment Monitor blood pressure and continue on Verapamil Agree with continuation of other chronic home medications. Tylenol as needed for chronic back pain Encourage patient to participate in unit activities and provide a safe environment Psychiatric management as per Dr Arguello The hospitalist service will continue to follow patient and medical manage her existing medical comorbidities. At time of discharge medical care will return to PCP in [place], PB Bell MD 01/22/17 8674: Past Medical History Current Medications Home Meds Reported Medications Guaifenesin (Robafen) 100 Mg/5 Ml Liquid, 10 ML PO Q4HR Y for PRN ORDERS 01/21/17 Mag Hydrox/Al Hydrox/Simeth (Mi Acid Suspension) 30 Ml Suspension, 10-20 ML PO TID Y for PRN ORDERS 01/21/17 Acetaminophen (Tylenol) 325 Mg Tablet, 1-2 TAB PO Q6H Y for PRN ORDERS, #60 TAB 2 Refills 01/21/17 Bismuth Subsalicylate (Bismatrol) 262 Mg/15 Ml Oral.susp, 30 ML PO Q6H Y for PRN ORDERS 01/21/17 Bisacodyl (Dulcolax) 10 Mg Supp.rect, 1 SUPP RECTALLY DAILY Y for PRN ORDERS, SUPP 01/21/17 Ranitidine HCl (Ranitidine HCl) 150 Mg Tablet, 150 MG PO HS, TAB Take 1 tablet, by mouth, 1 time a day (at BEDTIME). 01/21/17 Quetiapine Fumarate (Quetiapine Fumarate) 25 Mg Tablet, 25 MG PO BID, TAB 01/21/17 Donepezil HCl (Donepezil HCl) 10 Mg Tablet, 1 TAB PO DAILY, #30 TAB 5 Refills 01/21/17 Bethanechol Chloride (Bethanechol Chloride) 25 Mg Tablet, 1 TAB PO DAILY, TAB BEST ON EMPTY STOMACH 01/21/17 Acetaminophen (Tylenol) 500 Mg Tablet, 1 - 2 TAB PO PRN 03/15/12 Ascorbic Acid (Vitamin C) 100 Mg Tablet, 100 MG PO DAILY 03/15/12 Verapamil Hcl (Verapamil Hcl) 80 Mg Tablet, 80 MG PO TID 03/15/12 Spironolactone (Spironolactone) 50 Mg Tablet, 50 MG PO DAILY 03/15/12 Docusate Sodium (Colace) 100 Mg Capsule, 100 MG PO DAILY 02/17/12 Pravastatin Sodium (Pravastatin Sodium) 40 Mg Tablet, 40 MG PO DAILY 02/17/12 Lutein (Lutein) 20 Mg Capsule, 20 MG PO DAILY 02/17/12 Omeprazole Magnesium (Prilosec Otc) 20 Mg Tablet.dr, 20 MG PO DAILY 02/17/12 Aspirin (Aspirin) 325 Mg Tablet.dr, 325 MG PO DAILY 02/17/12 Multivitamins (Multivitamin) 1 Tab Tablet, 1 TAB PO DAILY 02/17/12 Calcium Carbonate/Vitamin D3 (Calcium + D 600 Mg Tablet) 1 Tab Tablet, 1 TAB PO DAILY 02/17/12 Ibuprofen (Ibuprofen) 200 Mg Capsule, 200 MG PO Y 02/17/12 Allergies: Coded Allergies: Penicillins (Verified Allergy, Severe, ANAPHYLACTIC SHOCK, 01/21/17) atorvastatin calcium (Verified Allergy, Unknown, MUSCLE WEAKNESS, 01/21/17) clarithromycin (Verified Allergy, Unknown, 01/21/17) cyclobenzaprine HCl (Verified Allergy, Unknown, 01/21/17) ezetimibe (Verified Allergy, Unknown, 02/17/12) hydrocodone bit (Verified Allergy, Unknown, 01/21/17) niacin (Verified Allergy, Unknown, HOT FLASHES AND ITCHING, 01/21/17) propranolol (Verified Allergy, Unknown, 02/17/12) rofecoxib (Verified Allergy, Unknown, 02/17/12) simvastatin (Verified Allergy, Unknown, ELEVATED LIVER ENZYMES, 01/21/17) Assessment & Plan Problems: (1) Cognitive and behavioral changes Status: Acute (2) Alzheimer's dementia Status: Chronic (3) Hyperlipidemia Status: Chronic (4) Hypertension (5) History of TIAs Status: Chronic (6) GERD (gastroesophageal reflux disease) Status: Chronic Qualifiers: Esophagitis presence: esophagitis presence not specified Qualified Codes: K21.9 - Gastro-esophageal reflux disease without esophagitis (7) Osteoarthritis Status: Chronic Qualifiers: Osteoarthritis location: multiple joints Osteoarthritis type: primary Qualified Codes: M15.0 - Primary generalized (osteo)arthritis (8) Neuropathy Status: Chronic (9) Macular degeneration Status: Chronic (10) Hard of hearing Status: Chronic Qualifiers: Hearing loss type: unspecified Laterality: bilateral Qualified Codes: H91.93 - Unspecified hearing loss, bilateral Plan/Intensity of Service Have independently interviewed and examined pt. Chart reviewed. Case discussed with my WORD PROCESSING SPECIALIST. Above care plan developed with my supervision; agree with above. Admitted to [facility] for behavioral problems. Medically, feels she is doing well. No having breathing problems-denies SOA, cough or congestion. No sinus pressure, pain or fullness. Denies chest pressure, pain, discomfort or palpitations. Reflux controlled-no pain with swallowing or food catching. No ab pain. Stools stable. No urinary pain or frequency. Lungs: clear CV: regular AB: soft nt/nd +BS MSE; awake alert appropriate Plan: Agree with admission of patient to [facility] for geropsychiatric treatment. Psychiatry will manage and adjust psychoactive medications. Continue with chronic medications. Encourage continued ambulation. Encourage Generation group activities. Monitor blood pressure due to HTN and medication use. Provide safe supportive environment. Pt medically stable for [facility] floor activities. DANNY SHEETS APRN Jan 22, 2017 10:26 PB LANZA MD Jan 22, 2017 17:31
--- NOTE | 2017-01-22 11:55 | GENHPPDOC ---
[facility] 01/22/17 Time of Service: 11:30 Start Time: 11:30 Stop Time: 12:00 >50% of this visit spent in counseling/coordination care. Chief Complaint: behavioral disturbances, delusional History of Present Illness 81 year old female sent from ER in [facility] due to increased agitation, and aggression such as slamming doors in peoples faces. They report she has been delusional and believes she is to be one of her friends grandsons. She believes that everyone is trying to control her and keep her from marrying this friends grandson. She is lives in an assisted living in [facility] where she has reportedly resided since July of 2016. She reportedly even left the facility at one point to find this young nerissa home and had to be returned to the longterm. She has had physical aggression w her daughter and reportedly has extreme mood swings. Her report of why she's here is "because my daughter hates me." Per nursing, Oriented X 2-3. Had reportedly been being seen by COMMOD[employer] INDU[employer]Y ANALYST from [facility]. (Seroquel, Ativan, Lorazepam) She's only been here a short time but RN reports since here she's been pleasant and cooperative thus far. Slept thru the night except up to void. Ate prior to arrival last night. Ambulates but has boot on R foot. Stressors: friend one month ago Depression: irritable Psychosis: delusions, paranoia Anxiety: irritability, tension Past Medical History Past Medical History Hyperlipidemia, HTN, TIA, Alzheimer's Dz Surgical History Patient's Surgical History: Appendectomy, Cholecystectomy, Hernia repair, Hysterectomy Current Medications Home Meds Reported Medications Guaifenesin (Robafen) 100 Mg/5 Ml Liquid, 10 ML PO Q4HR Y for PRN ORDERS 01/21/17 Mag Hydrox/Al Hydrox/Simeth (Mi Acid Suspension) 30 Ml Suspension, 10-20 ML PO TID Y for PRN ORDERS 01/21/17 Acetaminophen (Tylenol) 325 Mg Tablet, 1-2 TAB PO Q6H Y for PRN ORDERS, #60 TAB 2 Refills 01/21/17 Bismuth Subsalicylate (Bismatrol) 262 Mg/15 Ml Oral.susp, 30 ML PO Q6H Y for PRN ORDERS 01/21/17 Bisacodyl (Dulcolax) 10 Mg Supp.rect, 1 SUPP RECTALLY DAILY Y for PRN ORDERS, SUPP 01/21/17 Ranitidine HCl (Ranitidine HCl) 150 Mg Tablet, 150 MG PO HS, TAB Take 1 tablet, by mouth, 1 time a day (at BEDTIME). 01/21/17 Quetiapine Fumarate (Quetiapine Fumarate) 25 Mg Tablet, 25 MG PO BID, TAB 01/21/17 Donepezil HCl (Donepezil HCl) 10 Mg Tablet, 1 TAB PO DAILY, #30 TAB 5 Refills 01/21/17 Bethanechol Chloride (Bethanechol Chloride) 25 Mg Tablet, 1 TAB PO DAILY, TAB BEST ON EMPTY STOMACH 01/21/17 Acetaminophen (Tylenol) 500 Mg Tablet, 1 - 2 TAB PO PRN 03/15/12 Ascorbic Acid (Vitamin C) 100 Mg Tablet, 100 MG PO DAILY 03/15/12 Verapamil Hcl (Verapamil Hcl) 80 Mg Tablet, 80 MG PO TID 03/15/12 Spironolactone (Spironolactone) 50 Mg Tablet, 50 MG PO DAILY 03/15/12 Docusate Sodium (Colace) 100 Mg Capsule, 100 MG PO DAILY 02/17/12 Pravastatin Sodium (Pravastatin Sodium) 40 Mg Tablet, 40 MG PO DAILY 02/17/12 Lutein (Lutein) 20 Mg Capsule, 20 MG PO DAILY 02/17/12 Omeprazole Magnesium (Prilosec Otc) 20 Mg Tablet.dr, 20 MG PO DAILY 02/17/12 Aspirin (Aspirin) 325 Mg Tablet.dr, 325 MG PO DAILY 02/17/12 Multivitamins (Multivitamin) 1 Tab Tablet, 1 TAB PO DAILY 02/17/12 Calcium Carbonate/Vitamin D3 (Calcium + D 600 Mg Tablet) 1 Tab Tablet, 1 TAB PO DAILY 02/17/12 Ibuprofen (Ibuprofen) 200 Mg Capsule, 200 MG PO Y 02/17/12 Allergies: Coded Allergies: Penicillins (Verified Allergy, Severe, ANAPHYLACTIC SHOCK, 01/21/17) atorvastatin calcium (Verified Allergy, Unknown, MUSCLE WEAKNESS, 01/21/17) clarithromycin (Verified Allergy, Unknown, 01/21/17) cyclobenzaprine HCl (Verified Allergy, Unknown, 01/21/17) ezetimibe (Verified Allergy, Unknown, 02/17/12) hydrocodone bit (Verified Allergy, Unknown, 01/21/17) niacin (Verified Allergy, Unknown, HOT FLASHES AND ITCHING, 01/21/17) propranolol (Verified Allergy, Unknown, 02/17/12) rofecoxib (Verified Allergy, Unknown, 02/17/12) simvastatin (Verified Allergy, Unknown, ELEVATED LIVER ENZYMES, 01/21/17) Family History Family History: unable to obtain Vaccines AGE 67 Social History Advance Directives: Yes DPOA for Healthcare Only Social History Comments lives in Co in [place] since July has daughter but currently is delusional towards her. No known substance use or problems. Strengths: has support and structure of AL in place. Weaknesses: delusions are preventing proper care and safety. Review of Systems GI Lower Abdomen: diarrhea General: frequency Musculoskeletal General: joint pain Psychiatric Psychiatric: anxiety, irritability, memory impairment, see HPI [facility] Exam Vitals Vital Signs Date Time Temp Pulse Resp B/P Pulse Ox O2 Delivery O2 Flow Rate FiO2 01/21/17 21:49 18 01/21/17 21:11 97.8 63 137/69 95 Room Air Physical examination performed by the hospitalist. Height (Feet): 5 Height (Inches): 5.00 Mental Status Exam Dressing: Casual Grooming: Fair Attitude: Uncooperative Speech: Normal Orientation: Oriented to person Mood: Irritable Thought Organization: Confused Thought Content: Delusions, Paranoia Memory: Poor-recent Suicidal Ideation: Denies Homicidal Ideation: Denies Insight: Poor Judgment: Poor Impulse Control: Poor Assessment and Plan (1) Alzheimer's dementia (2) History of TIAs (3) Cognitive and behavioral changes -Admit to [facility] for further evaluation of behavioral changes and delusions. -Routine observation and labs. -Hospitalist service consulted as well. -Continue psych meds for now and observe behaviors. Can adjust from there. Estimated length of stay: 7-10 days. LACY GRANADOS MD Jan 22, 2017 07:18
--- NOTE | 2017-01-22 15:11 | NUR ---
ETOH/SLUMS Pt ETOH AUDIT was 0. SLUMS score was 15. Pt awake and alert. Will continue to monitor.
[2017-01-22 15:26] VITALS: BP 139/71; PULSE 65; RESP 18; TEMP 98.2; O2SAT 97
--- NOTE | 2017-01-22 18:10 | NUR ---
Summary Pt has been A/O x 3; able to state tuesday but unsure of date. Pt has been cooperative with staff. Pt has been compliant with all medication. Pt talked about daughter this morning and why she was in here. Pt states, "My daughter put me here because I was suppose to get yesterday night, and she's the worst. My son could take better care of me and he is mentally handicapped." Pt able to talk about delusion, and then go about other duties ie get ready for breakfast. Pt's daughter here at lunch and Pt able to remain calm. Daughter brought inventory and her walker. Pt has ambulated up and down hallway 3 times today, she states, "It helps my back". Pt has refused pain medication and ambulating has been helping pain per her report. No PRNs given. Pt up with steady gait with walker. Pt has had good appetite 75-100% of all meals. No other c/o voiced. Murmur heard when assessing Pt, Megan Campos APRN assessed Pt this morning as well, and aware of murmur. Pt denies chest pain today. Will continue to monitor.
[2017-01-22] MEDS: PRAVASTATIN 40 MG TABLET PO SCH (20:00)
[2017-01-22] MEDS: RANITIDINE 150 MG TABLET PO SCH (20:00)
[2017-01-22] MEDS ORDERED: RANITIDINE 150 MG TABLET PO SCH (21:00)
[2017-01-22 21:51] VITALS: BP 143/66; PULSE 53; RESP 14; TEMP 97.1; O2SAT 96
[2017-01-22 22:53] VITALS: PULSE 53; RESP 18
--- NOTE | 2017-01-23 01:04 | NUR ---
Chart Check 24 hour chart check completed
--- NOTE | 2017-01-23 01:04 | NUR ---
Bed time Pt fell to sleep at 2130. No sleep during day. Will continue to monitor
--- NOTE | 2017-01-23 01:41 | NUR ---
Mid shift status Pt was sitting in her room in recliner at beginning of shift. Pt is pleasant and cooperative with assessment. Alert x 3. Up SBA to FWW. Pt complained that her daughter did not bring her enough clothes to wear, and that they are not warm enough clothes. That is the only time pt brought up her daughter this shift. Pt compliant with all HS meds. Pt has not displayed any aggressive behaviors. No agitation noted. No PRNs given. Pt makes needs known. Has been continent. Currently sleeping. Bed rails up x 2 and alarm on. Will continue to monitor
--- NOTE | 2017-01-23 05:19 | NUR ---
Summary Pt has been asleep all night other than to get up twice in night to void. Been sleeping since 2129. Pt alert x 3. Up SBA to FWW. Compliant with all meds. Cooperative with cares. No aggressive behaviors noted. No agitation. No PRNs given this shift. Pt currently sleeping. Bed rails up x 2 and alarm on. Will continue to monitor
[2017-01-23 08:43] VITALS: BP 138/73; PULSE 77; RESP 18; TEMP 97.3; O2SAT 96
[2017-01-23] MEDS: LUTEIN 10 MG PO SCH (08:45)
[2017-01-23] MEDS: BETHANECHOL 25 MG TABLET PO SCH (08:46)
[2017-01-23] MEDS: SPIRONOLACTONE 50 MG TABLET PO SCH (08:46)
[2017-01-23] MEDS: QUETIAPINE 25 MG TABLET PO SCH (08:46)
[2017-01-23] MEDS: DONEPEZIL 10 MG TABLET PO SCH (08:46)
[2017-01-23] MEDS: VERAPAMIL 80 MG TABLET PO SCH ×3 (08:46→20:41)
[2017-01-23] MEDS: MULTIVITAMIN PLAIN TABLET PO SCH (08:46)
--- NOTE | 2017-01-23 10:29 | DI ---
Indication: ITS.REASON: mental status change PROCEDURE: CT HEAD W/O CONTRAST: Encounter: Initial Comparison: None Technique: Axial CT images through the head were performed without contrast. Iterative Reconstruction dose reducing technique was utilized. FINDINGS: The ventricles are of normal size, shape, and contour for the patient's age. There are scattered areas of low attenuation in the white matter which most likely represent changes from chronic microvascular ischemia. The brainstem, cerebellum, and cerebral hemispheres otherwise have a normal morphology and CT attenuation. There is no evidence of midline displacement. No hemorrhage, signs of acute territorial stroke, mass effect, mass lesions, or edema is evident. Tiny probable colloid cyst at the foramen of Tam measuring 3 to 4 mm in size. The visualized portions of the skull base, midface, and calvarium demonstrate no abnormality. Mild sinus disease. The tympanic and mastoid cavities appear normal. IMPRESSION: No acute intracranial abnormality or hemorrhage. .
--- NOTE | 2017-01-23 10:43 | NUR ---
SLEEP 8.5 Hours Pt went to bed last night at 2000 and awoke at 0630 this morning for a total of 8.5 Hours of sleep as noted by Q15 minute observation forms.
--- NOTE | 2017-01-23 11:55 | GENPN ---
[place] Subjective Date DATE: 01/23/17 TIME: 07:05 Subjective/Severity of Illness Medications Current Medications Medications (Trade) Dose Ordered Sig/Gaby Start Time Stop Time Status Last Admin Dose Admin Miscellaneous Medication (May use PRN orders) 1 PRN PRN 01/21/17 22:00 Haloperidol (Haldol) 0.5 mg Q6H PRN 01/21/17 22:00 Lorazepam (Ativan) 0.5 mg Q6H PRN 01/21/17 22:00 Lorazepam (Ativan) 0.5 mg Q6H PRN 01/21/17 22:00 Haloperidol Lactate (Haldol 5 Mg/ml Inj) 0.5 mg Q6H PRN 01/21/17 22:00 Acetaminophen (Tylenol Regular Strength) 1-2 tabs for arthri... Q6H PRN 01/21/17 23:00 01/21/17 23:01 DC Bethanechol Chloride (Urecholine 25 Mg) 25 mg DAILY 01/22/17 09:00 01/22/17 09:00 DC Bisacodyl (Dulcolax) 10 mg DAILY PRN 01/21/17 23:00 01/21/17 23:01 DC Bismuth Subsalicylate (Pepto-Bismol) 524 mg Q6H PRN 01/21/17 23:00 01/21/17 23:01 DC Donepezil HCl (Aricept) 10 mg DAILY 01/22/17 09:00 01/22/17 09:00 DC Guaifenesin (Robitussin) 200 mg Q4HR PRN 01/21/17 23:00 01/21/17 23:01 DC Lutein (Lutein) 20 mg DAILY 01/22/17 09:00 01/22/17 09:00 DC Pravastatin Sodium (Pravachol) 40 mg DAILY 01/22/17 09:00 01/22/17 09:00 DC Quetiapine Fumarate (Seroquel) 25 mg BID 01/22/17 09:00 01/22/17 09:00 DC Ranitidine HCl (Zantac) 150 mg HS 01/22/17 21:00 01/22/17 21:00 DC Spironolactone (Aldactone) 50 mg DAILY 01/22/17 09:00 01/22/17 09:00 DC Verapamil HCl (Calan) 80 mg TID 01/22/17 09:00 01/22/17 09:00 DC Al Hydroxide/Mg Hydroxide (Maalox) Take TID PRN for stom... TID PRN 01/21/17 23:00 Multivitamins Therapeutic (Theragran) 1 tab DAILY 01/22/17 09:00 01/22/17 09:25 1 TAB Acetaminophen (Tylenol Regular Strength) 1-2 tabs for arthri... Q6H PRN 01/22/17 05:00 Bethanechol Chloride (Urecholine 25 Mg) 25 mg DAILY 01/21/17 23:00 01/22/17 09:23 25 MG Bisacodyl (Dulcolax) 10 mg DAILY PRN 01/21/17 23:00 Bismuth Subsalicylate (Pepto-Bismol) 524 mg Q6H PRN 01/22/17 05:00 Donepezil HCl (Aricept) 10 mg DAILY 01/21/17 23:00 01/22/17 09:24 10 MG Guaifenesin (Robitussin) 200 mg Q4HR PRN 01/21/17 23:00 Lutein (Lutein) 20 mg DAILY 01/21/17 23:00 01/22/17 07:13 DC Pravastatin Sodium (Pravachol) 40 mg DAILY 01/21/17 23:00 01/22/17 07:08 DC Quetiapine Fumarate (Seroquel) 25 mg BID 01/21/17 23:00 01/22/17 20:00 25 MG Ranitidine HCl (Zantac) 150 mg HS 01/21/17 23:00 01/22/17 20:00 150 MG Spironolactone (Aldactone) 50 mg DAILY 01/21/17 23:00 01/22/17 09:23 50 MG Verapamil HCl (Calan) 80 mg TID 01/21/17 23:00 01/22/17 20:00 80 MG Pravastatin Sodium (Pravachol) 40 mg HS 01/22/17 21:00 01/22/17 20:00 40 MG Non-Formulary Medication 2 DAILY 01/22/17 09:00 01/22/17 09:24 2 Subjective Pt. seen, chart reviewed. Case discussed w RN. 81 year old female admitted from [facility] due to delusions and aggression towards her daughter. She remains agitated towards daughter but has been fairly pleasant and cooperative w staff here. RN reports they've not had any behaviors or PRNs needed. She has not been as fixated or commenting on her delusion about marrying this friends grandson. When I directly asked her, she maintains she was set to be already and she's upset this was stopped. She reports the man is 33 years old and was annoyed I asked. She argues that his parents approved of it and that her daughter should stay out of it. Slept well, upwards of 9 hours. Appetite 100% of meals. Ambulates w assistance and walker. Back pain but ambulates to help this. Oriented X 3. Time of Service: 08:00 Start Time: 08:00 Stop Time: 08:15 Care >50% of this visit spent in counseling/coordination care. [facility] Exam Vitals Vital Signs Date Time Temp Pulse Resp B/P Pulse Ox O2 Delivery O2 Flow Rate FiO2 01/22/17 22:53 53 18 01/22/17 21:51 97.1 143/66 96 Room Air Physical examination performed by the hospitalist. Height (Feet): 5 Height (Inches): 5.00 Mental Status Exam Muscle Strength/Tone: Normal Dressing: Casual Grooming: Good Attitude: Cooperative Motor Activity: Normal Eye Contact: Good Speech: Normal Volume: Normal Rhythm: Appropriate Rhythm Sensory: Alert Orientation: Oriented to person, Oriented to place, Oriented to time Mood: Neutral, Irritable Affect: Congruent Rate of Thoughts: Appropriate Rate Thought Organization: Confused Thought Content: Delusions Memory: Poor-recent Suicidal Ideation: Denies Homicidal Ideation: Denies Insight: Poor Judgment: Poor Impulse Control: Poor Assessment and Plan (1) Alzheimer's dementia (2) History of TIAs (3) Cognitive and behavioral changes -Increase Seroquel at HS to 50mg to target delusions and agitation towards daughter. LACY GRANADOS MD Jan 23, 2017 07:08
--- NOTE | 2017-01-23 13:07 | NUR ---
Status Pt was cooperative with assessment, cares and medications. Pt is happy in affect and is able to make needs known. Pt ambulates very well with her FWW and has spent a majority of the shift so far in her room. Pt has had no complaints of pain or discomfort and received no PRN medications so far this shift. Pt is able to make her needs known and uses call light appropriately. Pt is currently in her room sitting in a chair with alarm activated.
[2017-01-23 16:00] VITALS: BP 133/66; PULSE 67; RESP 18; TEMP 97.9; O2SAT 96
--- NOTE | 2017-01-23 16:48 | PNPDOC ---
Subjective Date DATE: 01/23/17 TIME: 16:42 Subjective Milena is seen today in follow up. She is up in her chair- visits with family. Reports she is "bored". Chart is reviewed. She remains fixated on marrying a friend's grandson. She does not report that to me. Objective Vital Signs Vital signs Vital Signs Date Time Temp Pulse Resp B/P Pulse Ox O2 Delivery O2 Flow Rate FiO2 01/23/17 08:43 97.3 77 18 138/73 96 Room Air Height (Feet): 5 Height (Inches): 5.00 Weight (Kilograms): 68.300 General General Appearance: Alert, Cooperative, No Acute Distress Eyes (Brief) Eyes: FOUND: EOMI, PERRL Neck (Brief) Neck: FOUND: midline, NOT FOUND: JVD, nuchal rigidity, spasm Respiratory (Brief) Respiratory: FOUND: clear all moore, equal bilaterally, symmetrical, NOT FOUND : rales, wheezes Cardiovascular (Brief) Cardiac: FOUND: murmur, regular rate, regular rhythm, NOT FOUND: pedal edema Abdomen (Brief) Abdominal: FOUND: BS normo active x4, soft, NOT FOUND: distended, tender Extremities (Brief) Extremity : Extremity Finding: NOT FOUND: edema Integumentary (Brief) Integumentary: FOUND: dry, pink, warm Psychiatric (Brief) Psychiatric: FOUND: alert, attentive Radiology CT head normal Assessment & Plan Problems: (1) Cognitive and behavioral changes Status: Acute (2) Alzheimer's dementia Status: Chronic (3) Hyperlipidemia Status: Chronic (4) Hypertension (5) History of TIAs Status: Chronic (6) GERD (gastroesophageal reflux disease) Status: Chronic Qualifiers: Esophagitis presence: esophagitis presence not specified Qualified Codes: K21.9 - Gastro-esophageal reflux disease without esophagitis (7) Osteoarthritis Status: Chronic Qualifiers: Osteoarthritis location: multiple joints Osteoarthritis type: primary Qualified Codes: M15.0 - Primary generalized (osteo)arthritis (8) Neuropathy Status: Chronic (9) Macular degeneration Status: Chronic (10) Hard of hearing Status: Chronic Qualifiers: Hearing loss type: unspecified Laterality: bilateral Qualified Codes: H91.93 - Unspecified hearing loss, bilateral Plan/Intensity of Service 01/23/17- Continue safe and supportive environment. Pt. remains fixated on marrying young man per charted notes. She is alert and cooperative during my visit. We may need to increase her BP meds, but I would like to see SCr and K before doing so. Will request AM labs. CT head is benign. Continue to follow with you. Code Status Do Not Resuscitate Hospital Course Summary Disclaimer The hospital course summary below is not to be considered part of the above Progress Note. Hospital Course Summary Agree with admission to the [facility] unit for further psychiatric evaluation and treatment Monitor blood pressure and continue on Verapamil Agree with continuation of other chronic home medications. Tylenol as needed for chronic back pain Encourage patient to participate in unit activities and provide a safe environment Psychiatric management as per Dr Arguello The hospitalist service will continue to follow patient and medical manage her existing medical comorbidities. At time of discharge medical care will return to PCP in Dr Blayne Laura KIRA D FOIL STAMP OPERATOR Jan 23, 2017 16:46
--- NOTE | 2017-01-23 17:52 | NUR ---
Summary Pt was cooperative throughout the shift. She stated with family here that she has been locked in her room all day and was bored. I explained that i have been in the room multiple times asking her to come out with the rest of us and she would refuse. I told the patient and family of all the activities that we could do and the patient became agreeable. Pt is able to make her needs known. She has received no PRN medications this shift and has had no behaviors. Pt is currently in her room resting in her chair with alarm activated.
[2017-01-23 20:00] VITALS: BP 140/64; PULSE 62; RESP 16; TEMP 98.6; O2SAT 95
[2017-01-23] MEDS: QUETIAPINE 50 MG TABLET PO SCH (20:41)
[2017-01-23] MEDS: PRAVASTATIN 40 MG TABLET PO SCH (20:41)
[2017-01-23] MEDS: RANITIDINE 150 MG TABLET PO SCH (20:41)
--- NOTE | 2017-01-24 01:45 | NUR ---
Status Pt. is sitting in her room on approach. Pt. is alert and oriented x3. Pt. is pleasant and cooperative. No delusions noted or reported. Pt. transfers with FWW and SBA. Pt. is continent. No prn meds given. Pt. is resting in bed with the bed alarm activated and SR up x2.
[2017-01-24 02:27] LABS: BLOOD, URINE NEGATIVE (NEGATIVE); COLOR,URINE YELLOW (YELLOW); LEUKOCYTE ESTERASE ,URINE TRACE (NEGATIVE); NITRITE,URINE NEGATIVE (NEGATIVE); UROBILINOGEN,URINE 0.2 EU/DL (NORMAL)
[2017-01-24 03:07] LABS: FOLATE > 20.0 NG/ML (2.76-20); VITAMIN B12 - BATCH 484 PG/ML (239-931)
[2017-01-24 04:46] VITALS: PULSE 62; RESP 16
--- NOTE | 2017-01-24 05:10 | NUR ---
Bedtime Pt. is asleep at 2145. No sleep during dayshift.
--- NOTE | 2017-01-24 05:10 | NUR ---
Chart Check 24 hour chart check completed
[2017-01-24] MEDS: BETHANECHOL 25 MG TABLET PO SCH (05:58)
--- NOTE | 2017-01-24 06:13 | NUR ---
Summary Pt. is pleasant and cooperative this shift. Pt. had no delusions of marriage to a young man. Pt. is compliant and takes meds whole. Pt. is continent of bowel and bladder and transfers with SBA and FWW. Pt. is able to notify staff of needs. No prn meds given. Pt. is resting in bed with the bed alarm activated and SR up x2.
[2017-01-24] MEDS: LUTEIN 10 MG PO SCH (08:31)
[2017-01-24] MEDS: SPIRONOLACTONE 50 MG TABLET PO SCH (08:31)
[2017-01-24] MEDS: QUETIAPINE 25 MG TABLET PO SCH (08:32)
[2017-01-24] MEDS: VERAPAMIL 80 MG TABLET PO SCH ×3 (08:32→20:17)
[2017-01-24] MEDS: MULTIVITAMIN PLAIN TABLET PO SCH (08:32)
[2017-01-24 08:42] LABS: BASOPHILS % (AUTO) 0.5 % (0-2); EOSINOPHILS # (AUTO) 0.1 T/MM3 (0-0.5); EOSINOPHILS % (AUTO) 1.3 % (0-4); HCT - HEMATOCRIT 47.3 % (36-46); HGB - HEMOGLOBIN 15.8 GM/DL (12-16); IMMATURE GRANULOCYTE # (AUTO) 0.01 T/MM3 (0.00-0.03); IMMATURE GRANULOCYTE % (AUTO) 0.2 % (0.0-0.5); LYMPHOCYTES % (AUTO) 33.4 % (23-45); MEAN CORPUSCULAR HGB 29.8 UUG (26-34); MEAN CORPUSCULAR HGB CONC(MCHC 33.4 GM/DL (31-37); MEAN CORPUSCULAR VOLUME 89.2 UM3 (80-100); MEAN PLATELET VOLUME 9.6 UM3 (9.4-12.4); MONOCYTES # (AUTO) 0.4 T/MM3 (0-0.8); MONOCYTES % (AUTO) 6.2 % (0-9.0); NEUTROPHILS #(AUTO)-ABSOLUTE 3.6 T/MM3 (1.8-7.7); NEUTROPHILS % (AUTO) 58.4 % (33-66); WBC - WHITE BLOOD COUNT 6.1 T/MM3 (4.5-11.0)
[2017-01-24 08:43] VITALS: BP 125/69; PULSE 70; RESP 20; TEMP 98; O2SAT 98
[2017-01-24 08:54] LABS: ALBUMIN 4.2 G/DL (3.5-5.0); ALBUMIN/GLOBULIN RATIO 1.4 RATIO (1.1-2.2); ALKALINE PHOSPHATASE 63 U/L (38-126); ALT (SGPT) 28 U/L (9-52); ANION GAP 14 MEQ/L (5-15); AST (SGOT) 26 U/L (14-36); BUN/CREATININE RATIO 43 RATIO (6-26); CALCIUM 9.8 MG/DL (8.4-10.2); CHLORIDE 108 MEQ/L (98-107); CO2 - CARBON DIOXIDE 23 MEQ/L (22-30); CREATININE 0.7 MG/DL (0.7-1.2); GLOMERULAR FILTRATION RATE 81; GLUCOSE 119 MG/DL (65-110); MAGNESIUM 2.2 MG/DL (1.6-2.3); POTASSIUM 4.3 MEQ/L (3.6-5); SODIUM 145 MEQ/L (134-144); TOTAL PROTEIN 7.1 G/DL (6.3-8.2)
--- NOTE | 2017-01-24 09:00 | NUR ---
SLEEP 7.75 Hours Patient went to bed last night at 2100 and awoke this morning at 0730. Pt slept 7.75 hours as documented on 15 minute observation forms.
--- NOTE | 2017-01-24 14:25 | NUR ---
Status Pt was cooperative with assessment, cares and medications. Pt is happy in affect and is able to make needs known, she does complain that we do not have enough activity around here and would like to be more active. Pt ambulates very well with her FWW and received an order today to be ad-cresencio. Pt has had no complaints of pain or discomfort and received no PRN medications so far this shift. Pt is able to make her needs known and uses call light appropriately. Pt is currently in her room reading.
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
[2017-01-24 16:39] VITALS: BP 138/69; PULSE 69; RESP 20; TEMP 98.1; O2SAT 96
--- NOTE | 2017-01-24 17:50 | GENPN ---
[facility] Subjective Date DATE: 01/24/17 TIME: 15:10 Subjective/Severity of Illness Medications Current Medications Medications (Trade) Dose Ordered Sig/Gaby Start Time Stop Time Status Last Admin Dose Admin Miscellaneous Medication (May use PRN orders) 1 PRN PRN 01/21/17 22:00 Haloperidol (Haldol) 0.5 mg Q6H PRN 01/21/17 22:00 Lorazepam (Ativan) 0.5 mg Q6H PRN 01/21/17 22:00 Lorazepam (Ativan) 0.5 mg Q6H PRN 01/21/17 22:00 Haloperidol Lactate (Haldol 5 Mg/ml Inj) 0.5 mg Q6H PRN 01/21/17 22:00 Acetaminophen (Tylenol Regular Strength) 1-2 tabs for arthri... Q6H PRN 01/21/17 23:00 01/21/17 23:01 DC Bethanechol Chloride (Urecholine 25 Mg) 25 mg DAILY 01/22/17 09:00 01/22/17 09:00 DC Bisacodyl (Dulcolax) 10 mg DAILY PRN 01/21/17 23:00 01/21/17 23:01 DC Bismuth Subsalicylate (Pepto-Bismol) 524 mg Q6H PRN 01/21/17 23:00 01/21/17 23:01 DC Donepezil HCl (Aricept) 10 mg DAILY 01/22/17 09:00 01/22/17 09:00 DC Guaifenesin (Robitussin) 200 mg Q4HR PRN 01/21/17 23:00 01/21/17 23:01 DC Lutein (Lutein) 20 mg DAILY 01/22/17 09:00 01/22/17 09:00 DC Pravastatin Sodium (Pravachol) 40 mg DAILY 01/22/17 09:00 01/22/17 09:00 DC Quetiapine Fumarate (Seroquel) 25 mg BID 01/22/17 09:00 01/22/17 09:00 DC Ranitidine HCl (Zantac) 150 mg HS 01/22/17 21:00 01/22/17 21:00 DC Spironolactone (Aldactone) 50 mg DAILY 01/22/17 09:00 01/22/17 09:00 DC Verapamil HCl (Calan) 80 mg TID 01/22/17 09:00 01/22/17 09:00 DC Al Hydroxide/Mg Hydroxide (Maalox) Take TID PRN for stom... TID PRN 01/21/17 23:00 Multivitamins Therapeutic (Theragran) 1 tab DAILY 01/22/17 09:00 01/24/17 08:32 1 TAB Acetaminophen (Tylenol Regular Strength) 1-2 tabs for arthri... Q6H PRN 01/22/17 05:00 Bethanechol Chloride (Urecholine 25 Mg) 25 mg DAILY 01/21/17 23:00 01/23/17 09:46 DC 01/23/17 08:46 25 MG Bisacodyl (Dulcolax) 10 mg DAILY PRN 01/21/17 23:00 Bismuth Subsalicylate (Pepto-Bismol) 524 mg Q6H PRN 01/22/17 05:00 Donepezil HCl (Aricept) 10 mg DAILY 01/21/17 23:00 01/24/17 08:32 DC 01/23/17 08:46 10 MG Guaifenesin (Robitussin) 200 mg Q4HR PRN 01/21/17 23:00 Lutein (Lutein) 20 mg DAILY 01/21/17 23:00 01/22/17 07:13 DC Pravastatin Sodium (Pravachol) 40 mg DAILY 01/21/17 23:00 01/22/17 07:08 DC Quetiapine Fumarate (Seroquel) 25 mg BID 01/21/17 23:00 01/23/17 07:10 DC 01/22/17 20:00 25 MG Ranitidine HCl (Zantac) 150 mg HS 01/21/17 23:00 01/23/17 20:41 150 MG Spironolactone (Aldactone) 50 mg DAILY 01/21/17 23:00 01/24/17 08:31 50 MG Verapamil HCl (Calan) 80 mg TID 01/21/17 23:00 01/24/17 08:32 80 MG Pravastatin Sodium (Pravachol) 40 mg HS 01/22/17 21:00 01/23/17 20:41 40 MG Non-Formulary Medication 2 DAILY 01/22/17 09:00 01/24/17 12:38 DC 01/24/17 08:31 2 Quetiapine Fumarate (Seroquel) 25 mg DAILY 01/23/17 09:00 01/24/17 08:32 25 MG Quetiapine Fumarate (Seroquel) 50 mg HS 01/23/17 21:00 01/23/17 20:41 50 MG Bethanechol Chloride (Urecholine 25 Mg) 25 mg ACB 01/24/17 06:30 01/24/17 05:58 25 MG Donepezil HCl (Aricept) 10 mg HS 01/24/17 21:00 Lutein (Lutein) 20 mg DAILY 01/25/17 09:00 Subjective Patient seen and chart reviewed. Case discussed with treatment team. Patient is walking quickly but steadily with walker in the halls on approach but agrees to speak with me in her room. She is irritable throughout interview and perseverates on her anger towards her daughter. She is primarily upset that she will not let her get . She will not elaborate on the relationship further, telling me it is none of my business. She is also irritable in regards to nursing staff and "regulations" here such as needing to have the door open at night. She states she very much likes her NH but is bored here and there are no activities. (Staff report that patient has isolated to her room despite multiple invitations to join activities. She also complained of this to her family when they were visiting yesterday.) Patient denies SI, HI, AVH, or adverse side effects related to medications. Per staff, patient has been isolating to her room, can be demanding and frequently speaking of anger towards her daughter. Patient slept 7.75 hours overnight. Appetite is good. VSS. No psychotropic PRNs required in the past 24 hours. Time of Service: 08:00 Start Time: 12:00 Stop Time: 12:20 Care >50% of this visit spent in counseling/coordination care. [facility] Exam Vitals Vital Signs Date Time Temp Pulse Resp B/P Pulse Ox O2 Delivery O2 Flow Rate FiO2 01/24/17 08:43 98.0 70 20 125/69 98 Room Air Physical examination performed by the hospitalist. Height (Feet): 5 Height (Inches): 5.00 Mental Status Exam Muscle Strength/Tone: Normal Dressing: Casual Grooming: Good Attitude: Uncooperative, Guarded, Argumentative Motor Activity: Restless Eye Contact: Fair Speech: Normal Volume: Normal Rhythm: Appropriate Rhythm Sensory: Alert Orientation: Oriented to person, Oriented to place Mood: Angry Affect: Labile Rate of Thoughts: Appropriate Rate Thought Organization: Perseverations (on anger towards daughter) Associations: Intact Abstract Reasoning: Poor abstract reasoning Thought Content: Delusions (per HPI), Ruminations Perception/Psychotic: Psychotic (no AVH noted other than delusions) Attention Span/Concentration: Inattentive Language: Naming Intact Fund of Knowledge: Other (Below average; SLUMS 15) Memory: Poor-recent Suicidal Ideation: Denies Homicidal Ideation: Denies Insight: Impaired Judgment: Impaired Impulse Control: Poor Laboratory Tests Test 01/24/17 02:02 01/24/17 08:05 Urine Collection Type Cleancatch-midstream Urine Color Yellow Urine Turbidity Clear Urine pH 5.5 Urine Specific [place] 1.025 Urine Protein Negative Urine Glucose (UA) Negative Urine Ketones Negative Urine Blood Negative Urine Nitrite Negative Urine Bilirubin Negative Urine Urobilinogen 0.2EU/DL Urine Leukocyte Esterase Trace Urinalysis Comment Microscopic not ind. White Blood Count 6.1T/MM3 Red Blood Count 5.30M/MM3 Hemoglobin 15.8GM/DL Hematocrit 47.3% Mean Corpuscular Volume 89.2UM3 Mean Corpuscular Hemoglobin 29.8UUG Mean Corpuscular Hemoglobin Concent 33.4GM/DL RDW Standard Deviation 42.2FL Platelet Count 229T/MM3 Mean Platelet Volume 9.6UM3 Immature Granulocyte % (Auto) 0.2% Neutrophils (%) (Auto) 58.4% Lymphocytes (%) (Auto) 33.4% Monocytes (%) (Auto) 6.2% Eosinophils (%) (Auto) 1.3% Basophils (%) (Auto) 0.5% Absolute Immature Granulocyte (auto 0.01T/MM3 Absolute Neutrophils (auto) 3.6T/MM3 Absolute Lymphocytes (auto) 2.0T/MM3 Absolute Monocytes (auto) 0.4T/MM3 Absolute Eosinophils (auto) 0.1T/MM3 Absolute Basophils (auto) 0.0T/MM3 Turbidity < 20 Sodium Level 145MEQ/L Potassium Level 4.3MEQ/L Chloride Level 108MEQ/L Carbon Dioxide Level 23MEQ/L Anion Gap 14MEQ/L Blood Urea Nitrogen 30.0MG/DL Creatinine 0.7MG/DL Glomerular Filtration Rate Calc 81 BUN/Creatinine Ratio 43RATIO Glucose Level 119MG/DL Calculated Osmolality 286MOSM/KG Calcium Level 9.8MG/DL Magnesium Level 2.2MG/DL Total Bilirubin 0.70MG/DL Icterus Index < 2 Aspartate Amino Transf (AST/SGOT) 26U/L Alanine Aminotransferase (ALT/SGPT) 28U/L Alkaline Phosphatase 63U/L Total Protein 7.1G/DL Albumin 4.2G/DL Globulin 2.9G/DL Albumin/Globulin Ratio 1.4RATIO Chemistry Specimen Hemolysis < 15 Assessment and Plan (1) Alzheimer's dementia Assessment: 01/22/17: Started Seroquel 25mg PO q HS. 01/23/17: Increased Seroquel to 50mg PO q HS. 01/24/17: Continue current care and monitor response to treatment; will likely consider addition of daytime Seroquel as well tomorrow. (2) History of TIAs (3) Cognitive and behavioral changes (4) Hyperlipidemia (5) Hypertension (6) GERD (gastroesophageal reflux disease) Qualifiers: Qualified Codes: K21.9 - Gastro-esophageal reflux disease without esophagitis (7) Osteoarthritis Qualifiers: Qualified Codes: M15.0 - Primary generalized (osteo)arthritis (8) Neuropathy (9) Macular degeneration (10) Hard of hearing Qualifiers: Qualified Codes: H91.93 - Unspecified hearing loss, bilateral YONI AJ MD Jan 24, 2017 15:10
--- NOTE | 2017-01-24 18:15 | NUR ---
Summary Pt was cooperative throughout the shift. Pt is happier with being able to come and go from her room as she pleases with no alarms going off. Pt walks the halls frequently and spends the rest of her time playing games in the dining room or reading her book. Pt is able to make her needs known. She has received no PRN medications this shift and has had no behaviors. Pt is currently in the dining room eating dinner.
[2017-01-24] MEDS: PRAVASTATIN 40 MG TABLET PO SCH (20:17)
[2017-01-24] MEDS: QUETIAPINE 50 MG TABLET PO SCH (20:17)
[2017-01-24] MEDS: DONEPEZIL 10 MG TABLET PO SCH (20:17)
[2017-01-24] MEDS: RANITIDINE 150 MG TABLET PO SCH (20:17)
[2017-01-24 21:08] VITALS: BP 134/86; PULSE 58; RESP 18; TEMP 98; O2SAT 95
--- NOTE | 2017-01-24 21:57 | NUR ---
SUMMARY PATIENT WAS COOPERATIVE WITH STAFF THIS EVENING. SHE CONTINUES TO ISOLATE HERSELF IN HER ROOM. SHE REFUSED TO COME OUT TO THE DAYROOM THIS EVENING. SHE WAS NOT AGGRESSIVE AND DENIED ANY HALLUCINATIONS. SHE TOOK ALL HER MEDICATIONS WHOLE. NO PRN'S GIVEN. PATIENT REMAINED IN BED WITH BED RAILS UP X2 AND BED ALARM ON.
--- NOTE | 2017-01-24 23:28 | NUR ---
Chart Check 24 hour chart check completed
[2017-01-25 02:32] LABS: LDL CHOLESTEROL,CALCULATED 118.4 (66-159); RISK FACTOR 3.8 RATIO (0-4.0); VLDL CHOLESTEROL 15.6 MG/DL (0-28)
[2017-01-25] MEDS: BETHANECHOL 25 MG TABLET PO SCH (06:35)
--- NOTE | 2017-01-25 07:36 | NUR ---
Summary assumed care of patient at 2300, patient was asleep in bed since 2044, had arrived on shift and assessed patient prior to her going to sleep. Once in bed patient slept throughout the night, waking up at 0630 to use restroom and take morning medications. No delusions noted during that time, no agitation or aggression observed. No prns given. Patient is currently in bed resting in bed.
[2017-01-25] MEDS: MULTIVITAMIN PLAIN TABLET PO SCH (08:44)
[2017-01-25] MEDS: LUTEIN 20 MG PO SCH (08:44)
[2017-01-25] MEDS: SPIRONOLACTONE 50 MG TABLET PO SCH (08:44)
[2017-01-25] MEDS: QUETIAPINE 25 MG TABLET PO SCH ×2 (08:44→12:09)
[2017-01-25] MEDS: VERAPAMIL 80 MG TABLET PO SCH ×3 (08:44→20:01)
[2017-01-25 08:54] VITALS: BP 150/74; PULSE 76; RESP 16; TEMP 97.3; O2SAT 98
--- NOTE | 2017-01-25 09:00 | NUR ---
SLEEP 10.75 Hours Patient went to bed last night at 2000 and awoke this morning at 0745. Pt slept 10.75 hours as documented on 15 minute observation forms.
--- NOTE | 2017-01-25 09:58 | PNPDOC ---
Subjective Date DATE: 01/25/17 TIME: 09:20 Stephany Abbott was just waking up for the day. She told me that she felt "as stiff as a board". She stated that mornings are typically worse, and she feels particularly stiff this morning because she has been "lying in bed awake for hours". Typically her knees and her ankles tend to give her the most grief. She otherwise denies any other complaints. She was able to stand up easily from the bed and walk to the bathroom with a steady gait without the use of an assistive device. Her appetite has been good, eating 100% of meals. Objective Vital Signs Vital signs Vital Signs Date Time Temp Pulse Resp B/P Pulse Ox O2 Delivery O2 Flow Rate FiO2 01/25/17 08:54 97.3 76 16 150/74 98 Room Air Height (Feet): 5 Height (Inches): 5.00 Weight (Kilograms): 68.300 General General Appearance: Alert, Well Nourished, Well Developed, No Acute Distress Eyes (Brief) Eyes: FOUND: PERRL, NOT FOUND: scleral icterus ENMT (Brief) ENMT: FOUND: mucosa moist, NOT FOUND: pharnyx erythema Respiratory (Brief) Respiratory: FOUND: clear all moore, equal bilaterally Cardiovascular (Brief) Cardiac: FOUND: murmur, regular rate, regular rhythm Abdomen (Brief) Abdominal: FOUND: BS normo active x4, soft, NOT FOUND: distended Extremities (Brief) Extremity : Extremity Finding: FOUND: other (knee effusions), NOT FOUND: edema Musculoskeletal (Brief) Musculoskeletal: FOUND: tenderness (joint lines of knees) Integumentary (Brief) Integumentary: FOUND: dry, pink, warm Psychiatric (Brief) Psychiatric: FOUND: alert, attentive, normal affect, oriented Laboratory Laboratory Laboratory Tests 01/24/17 08:05 Laboratory Tests 01/24/17 08:05 Assessment & Plan Problems: (1) Hypernatremia Status: Acute Assessment & Plan: Present on admission (2) Cognitive and behavioral changes Status: Acute (3) Alzheimer's dementia Status: Chronic (4) Hyperlipidemia Status: Chronic (5) Hypertension (6) History of TIAs Status: Chronic (7) GERD (gastroesophageal reflux disease) Status: Chronic Qualifiers: Esophagitis presence: esophagitis presence not specified Qualified Codes: K21.9 - Gastro-esophageal reflux disease without esophagitis (8) Osteoarthritis Status: Chronic Qualifiers: Osteoarthritis location: multiple joints Osteoarthritis type: primary Qualified Codes: M15.0 - Primary generalized (osteo)arthritis (9) Neuropathy Status: Chronic (10) Macular degeneration Status: Chronic (11) Hard of hearing Status: Chronic Qualifiers: Hearing loss type: unspecified Laterality: bilateral Qualified Codes: H91.93 - Unspecified hearing loss, bilateral Plan/Intensity of Service Labs reviewed. Mild hypernatremia noted. Encourage oral intake. Lipid panel, vitamin B12, folate, hemoglobin A1c were all unremarkable. Vital signs overall have been stable, mild to moderate elevations in blood pressure. She is on spironolactone and verapamil for antihypertensives. Psychiatric progress notes reviewed. Seroquel was increased to 50 mg HS; considering adding daytime Seroquel. Code Status Do Not Resuscitate Hospital Course Summary Disclaimer The hospital course summary below is not to be considered part of the above Progress Note. Hospital Course Summary Agree with admission to the [facility] unit for further psychiatric evaluation and treatment Monitor blood pressure and continue on Verapamil Agree with continuation of other chronic home medications. Tylenol as needed for chronic back pain Encourage patient to participate in unit activities and provide a safe environment Psychiatric management as per Dr Arguello The hospitalist service will continue to follow patient and medical manage her existing medical comorbidities. At time of discharge medical care will return to PCP in Dr Blayne Laura 01/25/17 Labs reviewed. Mild hypernatremia noted. Encourage oral intake. Lipid panel, vitamin B12, folate, hemoglobin A1c were all unremarkable. Vital signs overall have been stable, mild to moderate elevations in blood pressure. She is on spironolactone and verapamil for antihypertensives. Psychiatric progress notes reviewed. Seroquel was increased to 50 mg HS; considering adding daytime Seroquel. GEORGINA MARTIN FRONT END LOADER DRIVER Jan 25, 2017 09:21
--- NOTE | 2017-01-25 11:56 | NUR ---
SALES PROMOTION REPRESENTATIVE - 1:1 CONTACT Pt presented with agitation and "feeling sleepy". Pt guarded during the beginning of the conversation and very irritated at her family for "putting her in a psych negrete". SW oriented pt x3 for current situation. 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 When she begins to discuss what is happening now with her daughter, she becomes angry and states "my daughter is making me miserable". "She bosses me". Pt wants to get again to a younger gentleman. The gentleman is the grandson of her best friend who just passed a few weeks ago. According to staff, this actually happened in November. Pt is redirected easily when she starts to escalate about being angry at her daughter. If positive memories are discussed, pt will smile and talk freely. Pt's body movement changes as well and she relaxes in the moment. SW spoke with daughter, Kristal, who reports that pt used to be her best friend and it's hard to see her like this. Kristal doesn't know if she should just stay away or how to handle the changes. SW educated on disease process and how to approach pt. SW stated that as the disease progresses their may be other personality changes based on the part of the brain that the disease affects. Educated to not correct pt but meet her in her "new normal" reality. SW educated that medication will be monitored to see what will help decrease those delusions but the disease could change how the brain reacts to stimuli. SW encouraged Kristal to not stop seeing the pt just because of those changes but to try and redirect the pt to happy memories and live in the moment. SW encouraged Kristal to not discuss changes or events occurring in the present as it irritates the pt. Kristal is thankful for the opportunity to adjust some things to get her mom feeling better. Kristal would like contact to discuss progression in the program to determine if the [facility] living arrangement is adequate for pt at this time.
--- NOTE | 2017-01-25 13:25 | NUR ---
Status Pt was cooperative with assessment, cares and medications. Pt is happy in affect and loud when she speaks. Pt ambulates well with her walker and has had no complaints of pain or discomfort. Pt has received no PRN medications so far this shift. Pt is able to make her needs known and uses call light appropriately. Pt is currently in her room reading a book.
--- NOTE | 2017-01-25 14:24 | GENPN ---
[place] Subjective Date DATE: 01/25/17 TIME: 08:48 Subjective/Severity of Illness Medications Current Medications Medications (Trade) Dose Ordered Sig/Gaby Start Time Stop Time Status Last Admin Dose Admin Miscellaneous Medication (May use PRN orders) 1 PRN PRN 01/21/17 22:00 Haloperidol (Haldol) 0.5 mg Q6H PRN 01/21/17 22:00 Lorazepam (Ativan) 0.5 mg Q6H PRN 01/21/17 22:00 Lorazepam (Ativan) 0.5 mg Q6H PRN 01/21/17 22:00 Haloperidol Lactate (Haldol 5 Mg/ml Inj) 0.5 mg Q6H PRN 01/21/17 22:00 Acetaminophen (Tylenol Regular Strength) 1-2 tabs for arthri... Q6H PRN 01/21/17 23:00 01/21/17 23:01 DC Bethanechol Chloride (Urecholine 25 Mg) 25 mg DAILY 01/22/17 09:00 01/22/17 09:00 DC Bisacodyl (Dulcolax) 10 mg DAILY PRN 01/21/17 23:00 01/21/17 23:01 DC Bismuth Subsalicylate (Pepto-Bismol) 524 mg Q6H PRN 01/21/17 23:00 01/21/17 23:01 DC Donepezil HCl (Aricept) 10 mg DAILY 01/22/17 09:00 01/22/17 09:00 DC Guaifenesin (Robitussin) 200 mg Q4HR PRN 01/21/17 23:00 01/21/17 23:01 DC Lutein (Lutein) 20 mg DAILY 01/22/17 09:00 01/22/17 09:00 DC Pravastatin Sodium (Pravachol) 40 mg DAILY 01/22/17 09:00 01/22/17 09:00 DC Quetiapine Fumarate (Seroquel) 25 mg BID 01/22/17 09:00 01/22/17 09:00 DC Ranitidine HCl (Zantac) 150 mg HS 01/22/17 21:00 01/22/17 21:00 DC Spironolactone (Aldactone) 50 mg DAILY 01/22/17 09:00 01/22/17 09:00 DC Verapamil HCl (Calan) 80 mg TID 01/22/17 09:00 01/22/17 09:00 DC Al Hydroxide/Mg Hydroxide (Maalox) Take TID PRN for stom... TID PRN 01/21/17 23:00 Multivitamins Therapeutic (Theragran) 1 tab DAILY 01/22/17 09:00 01/24/17 08:32 1 TAB Acetaminophen (Tylenol Regular Strength) 1-2 tabs for arthri... Q6H PRN 01/22/17 05:00 Bethanechol Chloride (Urecholine 25 Mg) 25 mg DAILY 01/21/17 23:00 01/23/17 09:46 DC 01/23/17 08:46 25 MG Bisacodyl (Dulcolax) 10 mg DAILY PRN 01/21/17 23:00 Bismuth Subsalicylate (Pepto-Bismol) 524 mg Q6H PRN 01/22/17 05:00 Donepezil HCl (Aricept) 10 mg DAILY 01/21/17 23:00 01/24/17 08:32 DC 01/23/17 08:46 10 MG Guaifenesin (Robitussin) 200 mg Q4HR PRN 01/21/17 23:00 Lutein (Lutein) 20 mg DAILY 01/21/17 23:00 01/22/17 07:13 DC Pravastatin Sodium (Pravachol) 40 mg DAILY 01/21/17 23:00 01/22/17 07:08 DC Quetiapine Fumarate (Seroquel) 25 mg BID 01/21/17 23:00 01/23/17 07:10 DC 01/22/17 20:00 25 MG Ranitidine HCl (Zantac) 150 mg HS 01/21/17 23:00 01/24/17 20:17 150 MG Spironolactone (Aldactone) 50 mg DAILY 01/21/17 23:00 01/24/17 08:31 50 MG Verapamil HCl (Calan) 80 mg TID 01/21/17 23:00 01/24/17 20:17 80 MG Pravastatin Sodium (Pravachol) 40 mg HS 01/22/17 21:00 01/24/17 20:17 40 MG Non-Formulary Medication 2 DAILY 01/22/17 09:00 01/24/17 12:38 DC 01/24/17 08:31 2 Quetiapine Fumarate (Seroquel) 25 mg DAILY 01/23/17 09:00 01/24/17 08:32 25 MG Quetiapine Fumarate (Seroquel) 50 mg HS 01/23/17 21:00 01/24/17 20:17 50 MG Bethanechol Chloride (Urecholine 25 Mg) 25 mg ACB 01/24/17 06:30 01/25/17 06:35 25 MG Donepezil HCl (Aricept) 10 mg HS 01/24/17 21:00 01/24/17 20:17 10 MG Lutein (Lutein) 20 mg DAILY 01/25/17 09:00 Subjective Patient seen and chart reviewed. Case discussed with treatment team. Patient is more pleasant on interview today and does not perseverate on anger towards daughter throughout our visit. She does have various complaints about staff putting her to bed too early and waking her up too late (though it was documented the times were near the times patient reported that she goes to sleep and wakes up at the facility). She continues to be delusional in regards to her relationship with the younger man. Patient denies SI, HI, AVH, or adverse side effects related to medications. Per staff, patient was more interactive during the day yesterday and participated in activities, but isolated to her room in the evening. Patient slept 9.75 hours overnight. Appetite is good. VSS. No psychotropic PRNs required in the past 24 hours. Time of Service: 08:00 Start Time: 11:00 Stop Time: 11:20 Care >50% of this visit spent in counseling/coordination care. [facility] Exam Vitals Vital Signs Date Time Temp Pulse Resp B/P Pulse Ox O2 Delivery O2 Flow Rate FiO2 01/24/17 21:08 98.0 58 18 134/86 95 Room Air Physical examination performed by the hospitalist. Height (Feet): 5 Height (Inches): 5.00 Mental Status Exam Muscle Strength/Tone: Normal Dressing: Casual Grooming: Good Attitude: Tense Motor Activity: Normal Eye Contact: Good Speech: Normal Volume: Normal Rhythm: Appropriate Rhythm Sensory: Alert Orientation: Oriented to person, Oriented to place Mood: Neutral Affect: Labile (improving) Rate of Thoughts: Appropriate Rate Thought Organization: Organized Associations: Intact Abstract Reasoning: Poor abstract reasoning Thought Content: Delusions (in regards to marrying friend's grandson) Perception/Psychotic: Perception Normal (no AVH other than delusions) Attention Span/Concentration: Normal Language: Naming Intact Fund of Knowledge: Maria Guadalupe aware current events Memory: Poor-recent Suicidal Ideation: Denies Homicidal Ideation: Denies Insight: Limited Judgment: Limited Impulse Control: Fair Assessment and Plan (1) Alzheimer's dementia Assessment: 01/22/17: Started Seroquel 25mg PO q HS. 01/23/17: Increased Seroquel to 50mg PO q HS. 01/24/17: Continue current care and monitor response to treatment; will likely consider addition of daytime Seroquel as well tomorrow. 01/25/17: Increase Seroquel to 25mg PO BID (AM and afternoon, and 75mg PO q HS to target continued delusional thoughts. (2) History of TIAs (3) Cognitive and behavioral changes (4) Hyperlipidemia (5) Hypertension (6) GERD (gastroesophageal reflux disease) Qualifiers: Qualified Codes: K21.9 - Gastro-esophageal reflux disease without esophagitis (7) Osteoarthritis Qualifiers: Qualified Codes: M15.0 - Primary generalized (osteo)arthritis (8) Neuropathy (9) Macular degeneration (10) Hard of hearing Qualifiers: Qualified Codes: H91.93 - Unspecified hearing loss, bilateral YONI AJ MD Jan 25, 2017 08:48
--- NOTE | 2017-01-25 15:15 | NUR ---
ELIZABETH CM SPOKE WITH PT DAUGHTER AUDREY REGARDING D/C PLAN FOR PT. CM EXPLAINED ROLE AND PROVIDED CONTACT INFORMATION. AUDREY IS HOPEFUL THAT PT CAN RETURN TO NE AT [facility] HOWEVER IF PT CAN NOT DUE TO MEMORY ISSUES AUDREY WOULD LIKE CM TO CONTACT FACILITY AND DISCUSS OTHER OPTIONS. AUDREY IS AWARE TO CONTACT CM IF NEEDS ARISE. CM LEFT MESSAGE FOR SANGEETA CAFE OR RESTAURANT MANAGER AT [facility]. CM EXPLAINED ROLE AND PROVIDED CONTACT INFORMATION.
[2017-01-25 16:23] VITALS: BP 139/66; PULSE 59; RESP 16; TEMP 97.9; O2SAT 96
--- NOTE | 2017-01-25 18:35 | NUR ---
Summary Pt was cooperative throughout the shift. Pt is able to make her needs known. She has received no PRN medications this shift and has had no behaviors and no broadcasting of delusional thoughts has been witnessed. Pt is currently in the dining room putting together a puzzle.
[2017-01-25 19:42] VITALS: BP 149/72; PULSE 62; RESP 16; TEMP 97.3; O2SAT 94
[2017-01-25] MEDS: RANITIDINE 150 MG TABLET PO SCH (20:00)
[2017-01-25] MEDS: DONEPEZIL 10 MG TABLET PO SCH (20:00)
[2017-01-25] MEDS: PRAVASTATIN 40 MG TABLET PO SCH (20:01)
[2017-01-25] MEDS: QUETIAPINE 50 MG TABLET PO SCH (20:04)
[2017-01-26] VITALS (7 sets, daily range): BP systolic 129–149; BP diastolic 63–69; PULSE 62–65; RESP 14–16; TEMP 96.9–97.6; O2SAT 94–98
--- NOTE | 2017-01-26 00:05 | NUR ---
Pt status Pt was sitting in her room at beginning of shift. Pt alert x 3. Up ad cresencio. Pleasant and cooperative with assessment. Pt has not mentioned her daughter this shift. Has not displayed any agitation or behaviors this shift. Compliant with all HS meds. No PRNs given. Pt stated she was enjoying watching the rain out the window this evening. Pt has not made any comments this shift about getting . No delusional thinking noted. Currently sleeping. Bed rails up x 2 and alarm on. Will continue to monitor
--- NOTE | 2017-01-26 02:35 | NUR ---
Bed time Pt went to bed at 2100 and was asleep at 2200. No sleep during day hours. Currently sleeping. Will continue to monitor
--- NOTE | 2017-01-26 02:36 | NUR ---
Chart Check 24 hour chart check completed
--- NOTE | 2017-01-26 05:22 | NUR ---
Summary Pt has been sleeping since 2199. Up once to use BR and then back to sleep. Pt alert x 3. Up ad cresencio. Pt has been pleasant and cooperative with cares. Compliant with meds. No further issues since previous status note. No behaviors or agitation noted. No PRNs given. Currently sleeping. Bed rails up x 2 and alarm on. Will continue to monitor
[2017-01-26] MEDS: BETHANECHOL 25 MG TABLET PO SCH (05:58)
--- NOTE | 2017-01-26 06:00 | NUR ---
Summary Pt slept all night. Up once to use BR then back to sleep. Pt has not displayed any delusional thoughts. Did not talk of her daughter on this shift. Pt alert x 3. Up ad cresencio. Compliant with all meds. No agitation or behaviors noted. No PRNs given. Currently sleeping. Bed rails up x 2 and alarm on. Will continue to monitor
--- NOTE | 2017-01-26 08:00 | NUR ---
Pt. Status and Sleep Time Pt awake at 0800 and alert and oriented. Pt states she is tired "a lot of the time due to the stuff you give me." Is cooperative with meds and diet taken well.
[2017-01-26] MEDS: SPIRONOLACTONE 50 MG TABLET PO SCH (08:54)
[2017-01-26] MEDS: LUTEIN 20 MG PO SCH (08:55)
[2017-01-26] MEDS: MULTIVITAMIN PLAIN TABLET PO SCH (08:55)
[2017-01-26] MEDS: VERAPAMIL 80 MG TABLET PO SCH ×3 (08:55→19:56)
[2017-01-26] MEDS: QUETIAPINE 25 MG TABLET PO SCH ×2 (08:55→12:34)
--- NOTE | 2017-01-26 11:52 | NUR ---
MATERIAL HANDLER LOADER--AM GROUP Pt. actively participated in psychoeducational group facilitated by [facility]. Started off group by talking about expectations of the unit and encouraged all patients to engage in some of the activities involved. Talked about different interests and hobbies. One pt. mentioned she collects a certain kind of trupti and mentioned he collects arrow heads. Milena stated that she worked too hard and did not have time for hobbies or collections. Talked with patients about importance of taking time for themselves, now that they have time. Reminded them that today can be as special as they make it. Talked about favorite foods from their childhood. Finished up group by listening to El avila. Pt. frequently shared her thoughts and was attentive when others spoke. She demonstrated socially appropriate behaviors and her answers were logical. She was observed smiling and appeared relaxed and calm.
--- NOTE | 2017-01-26 18:20 | NUR ---
Shift Summary and Sleep Time No sleep time since awake at 0800. Pt did have visit with daughter today and no negative comments about daughter to nurse. Daughter did come to nurse and ask for some pads for her mother but not upset at end of her visit. Pt. whines at times regarding her clothes but no verbal or physical aggression today.
[2017-01-26] MEDS: DONEPEZIL 10 MG TABLET PO SCH (19:55)
[2017-01-26] MEDS: QUETIAPINE 50 MG TABLET PO SCH (19:55)
[2017-01-26] MEDS: RANITIDINE 150 MG TABLET PO SCH (19:55)
[2017-01-26] MEDS: PRAVASTATIN 40 MG TABLET PO SCH (19:55)
--- NOTE | 2017-01-26 22:20 | GENPN ---
[facility] Subjective Date DATE: 01/26/17 TIME: 22:15 Subjective/Severity of Illness Medications Current Medications Medications (Trade) Dose Ordered Sig/Gaby Start Time Stop Time Status Last Admin Dose Admin Miscellaneous Medication (May use PRN orders) 1 PRN PRN 01/21/17 22:00 Haloperidol (Haldol) 0.5 mg Q6H PRN 01/21/17 22:00 Lorazepam (Ativan) 0.5 mg Q6H PRN 01/21/17 22:00 Lorazepam (Ativan) 0.5 mg Q6H PRN 01/21/17 22:00 Haloperidol Lactate (Haldol 5 Mg/ml Inj) 0.5 mg Q6H PRN 01/21/17 22:00 Acetaminophen (Tylenol Regular Strength) 1-2 tabs for arthri... Q6H PRN 01/21/17 23:00 01/21/17 23:01 DC Bethanechol Chloride (Urecholine 25 Mg) 25 mg DAILY 01/22/17 09:00 01/22/17 09:00 DC Bisacodyl (Dulcolax) 10 mg DAILY PRN 01/21/17 23:00 01/21/17 23:01 DC Bismuth Subsalicylate (Pepto-Bismol) 524 mg Q6H PRN 01/21/17 23:00 01/21/17 23:01 DC Donepezil HCl (Aricept) 10 mg DAILY 01/22/17 09:00 01/22/17 09:00 DC Guaifenesin (Robitussin) 200 mg Q4HR PRN 01/21/17 23:00 01/21/17 23:01 DC Lutein (Lutein) 20 mg DAILY 01/22/17 09:00 01/22/17 09:00 DC Pravastatin Sodium (Pravachol) 40 mg DAILY 01/22/17 09:00 01/22/17 09:00 DC Quetiapine Fumarate (Seroquel) 25 mg BID 01/22/17 09:00 01/22/17 09:00 DC Ranitidine HCl (Zantac) 150 mg HS 01/22/17 21:00 01/22/17 21:00 DC Spironolactone (Aldactone) 50 mg DAILY 01/22/17 09:00 01/22/17 09:00 DC Verapamil HCl (Calan) 80 mg TID 01/22/17 09:00 01/22/17 09:00 DC Al Hydroxide/Mg Hydroxide (Maalox) Take TID PRN for stom... TID PRN 01/21/17 23:00 Multivitamins Therapeutic (Theragran) 1 tab DAILY 01/22/17 09:00 01/26/17 08:55 1 TAB Acetaminophen (Tylenol Regular Strength) 1-2 tabs for arthri... Q6H PRN 01/22/17 05:00 Bethanechol Chloride (Urecholine 25 Mg) 25 mg DAILY 01/21/17 23:00 01/23/17 09:46 DC 01/23/17 08:46 25 MG Bisacodyl (Dulcolax) 10 mg DAILY PRN 01/21/17 23:00 Bismuth Subsalicylate (Pepto-Bismol) 524 mg Q6H PRN 01/22/17 05:00 Donepezil HCl (Aricept) 10 mg DAILY 01/21/17 23:00 01/24/17 08:32 DC 01/23/17 08:46 10 MG Guaifenesin (Robitussin) 200 mg Q4HR PRN 01/21/17 23:00 Lutein (Lutein) 20 mg DAILY 01/21/17 23:00 01/22/17 07:13 DC Pravastatin Sodium (Pravachol) 40 mg DAILY 01/21/17 23:00 01/22/17 07:08 DC Quetiapine Fumarate (Seroquel) 25 mg BID 01/21/17 23:00 01/23/17 07:10 DC 01/22/17 20:00 25 MG Ranitidine HCl (Zantac) 150 mg HS 01/21/17 23:00 01/26/17 19:55 150 MG Spironolactone (Aldactone) 50 mg DAILY 01/21/17 23:00 01/26/17 08:54 50 MG Verapamil HCl (Calan) 80 mg TID 01/21/17 23:00 01/26/17 19:56 80 MG Pravastatin Sodium (Pravachol) 40 mg HS 01/22/17 21:00 01/26/17 19:55 40 MG Non-Formulary Medication 2 DAILY 01/22/17 09:00 01/24/17 12:38 DC 01/24/17 08:31 2 Quetiapine Fumarate (Seroquel) 25 mg DAILY 01/23/17 09:00 01/25/17 09:55 DC 01/25/17 08:44 25 MG Quetiapine Fumarate (Seroquel) 50 mg HS 01/23/17 21:00 01/25/17 09:55 DC 01/24/17 20:17 50 MG Bethanechol Chloride (Urecholine 25 Mg) 25 mg ACB 01/24/17 06:30 01/26/17 05:58 25 MG Donepezil HCl (Aricept) 10 mg HS 01/24/17 21:00 01/26/17 19:55 10 MG Lutein (Lutein) 20 mg DAILY 01/25/17 09:00 01/26/17 08:55 20 MG Quetiapine Fumarate (Seroquel) 25 mg 09,13 01/25/17 13:00 01/26/17 12:34 25 MG Quetiapine Fumarate (Seroquel) 75 mg HS 01/25/17 21:00 01/26/17 19:55 75 MG Subjective Patient seen and chart reviewed. Case discussed with treatment team. Patient is more pleasant on interview today and does not perseverate on anger towards daughter throughout our visit. They had a better visit today and she feels her anger dissipating. She continues to be delusional in regards to her relationship with the younger man but does not speak of it as frequently on the unit. She does complain of feeling tired during the day due to medication changes. Patient denies SI, HI, or AVH. Per staff, patient continues to have frequent minimal complaints about the unit but no significant behavioral difficulties. Patient slept 10.25 overnight. Appetite is good. VSS. No psychotropic PRNs required in the past 24 hours. Time of Service: 08:00 Start Time: 20:00 Stop Time: 20:20 Care >50% of this visit spent in counseling/coordination care. [facility] Exam Vitals Vital Signs Date Time Temp Pulse Resp B/P Pulse Ox O2 Delivery O2 Flow Rate FiO2 01/26/17 20:51 97.5 62 16 141/66 98 Room Air Physical examination performed by the hospitalist. Height (Feet): 5 Height (Inches): 5.00 Mental Status Exam Muscle Strength/Tone: Normal Dressing: Casual Grooming: Good Attitude: Cooperative Motor Activity: Normal Eye Contact: Good Speech: Normal Volume: Normal Rhythm: Appropriate Rhythm Sensory: Alert Orientation: Oriented X4 Mood: Neutral Affect: Other (Less irritable than previously) Rate of Thoughts: Appropriate Rate Thought Organization: Organized Associations: Intact Abstract Reasoning: Poor abstract reasoning Thought Content: Delusions, Ruminations (improving) Perception/Psychotic: Other (No AVH outside of delusional thought content) Attention Span/Concentration: Normal Language: Naming Intact Fund of Knowledge: Other (Decreased) Memory: Poor-recent Suicidal Ideation: Denies Homicidal Ideation: Denies Insight: Limited Judgment: Limited Impulse Control: Other (Improving) Assessment and Plan (1) Alzheimer's dementia Assessment: 01/22/17: Started Seroquel 25mg PO q HS. 01/23/17: Increased Seroquel to 50mg PO q HS. 01/24/17: Continue current care and monitor response to treatment; will likely consider addition of daytime Seroquel as well tomorrow. 01/25/17: Increase Seroquel to 25mg PO BID (AM and afternoon, and 75mg PO q HS to target continued delusional thoughts. 01/26/17: Delusional thought content believed to be more related to delusional disorder than dementia process. Will continue current care as patient is complaining of feeling sedated after recent increase. Irritability decreased but delusional thought content continue, though believed to be decreasing in intensity. (2) History of TIAs (3) Cognitive and behavioral changes (4) Hyperlipidemia (5) Hypertension (6) GERD (gastroesophageal reflux disease) Qualifiers: Qualified Codes: K21.9 - Gastro-esophageal reflux disease without esophagitis (7) Osteoarthritis Qualifiers: Qualified Codes: M15.0 - Primary generalized (osteo)arthritis (8) Neuropathy (9) Macular degeneration (10) Hard of hearing Qualifiers: Qualified Codes: H91.93 - Unspecified hearing loss, bilateral YONI AJ MD Jan 26, 2017 22:19
[2017-01-27 00:55] VITALS: PULSE 64; RESP 18
[2017-01-27] MEDS: BETHANECHOL 25 MG TABLET PO SCH (05:46)
--- NOTE | 2017-01-27 07:34 | NUR ---
Summary Pt has slept from 2129, getting up to use BR a few times. Pt alert x 3. Up ad cresencio. Pt pleasant and cooperative. Pt has had no delusional thoughts this shift. When visiting with pt she made a comment about her daughter coming to see her during the day. Pt went on to say how pleasant and nice the visit was and she was so happy to see her daughter. Pt made no negative remarks toward her daughter. No mention of getting . No display of aggressive or belligerent behavior. No PRNs given. Pt compliant with all meds. Currently sleeping. Bed rails up x 2 and alarm on. Will continue to monitor
[2017-01-27 08:06] VITALS: BP 142/70; PULSE 69; RESP 16; TEMP 97.6; O2SAT 98
[2017-01-27] MEDS: LUTEIN 20 MG PO SCH (08:21)
[2017-01-27] MEDS: QUETIAPINE 25 MG TABLET PO SCH (08:21)
[2017-01-27] MEDS: SPIRONOLACTONE 50 MG TABLET PO SCH (08:21)
[2017-01-27] MEDS: MULTIVITAMIN PLAIN TABLET PO SCH (08:21)
[2017-01-27] MEDS: VERAPAMIL 80 MG TABLET PO SCH ×3 (08:21→20:26)
--- NOTE | 2017-01-27 12:34 | PNPDOC ---
GEORGINA MARTIN PLATE CUTTER 01/27/17 1229: Subjective Date DATE: 01/27/17 TIME: 12:26 Subjective Milena was sitting in her recliner in her room, watching out the window. She stated she feels "dopey" - she tells me that she doesn't like getting so many drugs and she doesn't feel like she needs them. She denies any chest pain or trouble breathing but reports that she coughs sometimes. No abdominal pain or nausea, and she's been eating quite well. She states she has diarrhea (but on review of documentation - her stools have been listed as "soft"). She wears a brace to her left ankle, but is unable to tell me why she has to wear. She does report that she had a brace before this that was much more comfortable. Objective Vital Signs Vital signs Vital Signs Date Time Temp Pulse Resp B/P Pulse Ox O2 Delivery O2 Flow Rate FiO2 01/27/17 08:06 97.6 69 16 142/70 98 Room Air Height (Feet): 5 Height (Inches): 5.00 Weight (Kilograms): 68.300 General General Appearance: Alert, Orientated x 3, Well Nourished, Well Developed, No Acute Distress Eyes (Brief) Eyes: FOUND: PERRL, NOT FOUND: scleral icterus ENMT (Brief) ENMT: FOUND: mucosa moist, NOT FOUND: pharnyx erythema Respiratory (Brief) Respiratory: FOUND: clear all moore, equal bilaterally Cardiovascular (Brief) Cardiac: FOUND: regular rate, regular rhythm Abdomen (Brief) Abdominal: FOUND: BS normo active x4, soft, NOT FOUND: distended, tender Extremities (Brief) Extremity : Side: Bilateral Extremity Finding: NOT FOUND: edema Musculoskeletal (Brief) Comments Brace applied to right ankle Integumentary (Brief) Integumentary: FOUND: dry, pink, warm Psychiatric (Brief) Psychiatric: FOUND: alert, attentive, normal affect, oriented Assessment & Plan Problems: (1) Hypernatremia Status: Acute Assessment & Plan: Present on admission (2) Cognitive and behavioral changes Status: Acute (3) Alzheimer's dementia Status: Chronic (4) Hyperlipidemia Status: Chronic (5) Hypertension (6) History of TIAs Status: Chronic (7) GERD (gastroesophageal reflux disease) Status: Chronic Qualifiers: Esophagitis presence: esophagitis presence not specified Qualified Codes: K21.9 - Gastro-esophageal reflux disease without esophagitis (8) Osteoarthritis Status: Chronic Qualifiers: Osteoarthritis location: multiple joints Osteoarthritis type: primary Qualified Codes: M15.0 - Primary generalized (osteo)arthritis (9) Neuropathy Status: Chronic (10) Macular degeneration Status: Chronic (11) Hard of hearing Status: Chronic Qualifiers: Hearing loss type: unspecified Laterality: bilateral Qualified Codes: H91.93 - Unspecified hearing loss, bilateral Plan/Intensity of Service Medically stable. Blood pressure continues to be moderately elevated, though nothing alarming. Continue verapamil and spironolactone. Psychiatric progress notes, reviewed: Delusional thoughts more likely related to delusional disorder than dementia. Code Status Do Not Resuscitate Hospital Course Summary Disclaimer The hospital course summary below is not to be considered part of the above Progress Note. Hospital Course Summary Agree with admission to the [facility] unit for further psychiatric evaluation and treatment Monitor blood pressure and continue on Verapamil Agree with continuation of other chronic home medications. Tylenol as needed for chronic back pain Encourage patient to participate in unit activities and provide a safe environment Psychiatric management as per Dr Arguello The hospitalist service will continue to follow patient and medical manage her existing medical comorbidities. At time of discharge medical care will return to PCP in Dr Blayne Laura 01/25/17 Labs reviewed. Mild hypernatremia noted. Encourage oral intake. Lipid panel, vitamin B12, folate, hemoglobin A1c were all unremarkable. Vital signs overall have been stable, mild to moderate elevations in blood pressure. She is on spironolactone and verapamil for antihypertensives. Psychiatric progress notes reviewed. Seroquel was increased to 50 mg HS; considering adding daytime Seroquel. 01/27/17 Medically stable. Blood pressure continues to be moderately elevated, though nothing alarming. Continue verapamil and spironolactone. Psychiatric progress notes, reviewed: Delusional thoughts more likely related to delusional disorder than dementia. BRAULIO LI MD 01/27/17 1905: GEORGINA MARTIN PLATE CUTTER Jan 27, 2017 12:29 BRAULIO LI MD Jan 27, 2017 19:05
[2017-01-27] MEDS: QUETIAPINE 50 MG TABLET PO SCH (13:38)
[2017-01-27 16:06] VITALS: BP 139/66; PULSE 65; RESP 16; TEMP 99; O2SAT 96
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
--- NOTE | 2017-01-27 18:09 | NUR ---
summary pt alert and oriented x3. pleasant and cooperative. compliant with all medication. has good appetite. visits with the other female pts during meals appropriately. no delusional comments made this shift. pt does sit in room quite a bit during the day. did participate in a card game this afternoon with another female pt and Angely. pt slept approx 9 hrs. no prn meds given.
[2017-01-27 20:08] VITALS: BP 128/65; PULSE 56; RESP 16; TEMP 98.1; O2SAT 96
[2017-01-27] MEDS: RANITIDINE 150 MG TABLET PO SCH (20:26)
[2017-01-27] MEDS: QUETIAPINE 100 MG TABLET PO SCH (20:26)
[2017-01-27] MEDS: PRAVASTATIN 40 MG TABLET PO SCH (20:26)
[2017-01-27] MEDS: DONEPEZIL 10 MG TABLET PO SCH (20:27)
[2017-01-27 22:41] VITALS: PULSE 56; RESP 16
--- NOTE | 2017-01-28 01:30 | NUR ---
Chart Check 24 hour chart check completed
--- NOTE | 2017-01-28 01:44 | NUR ---
Mid shift status Pt was sitting in room in recliner at beginning of shift. Pt alert x 3. Up ad cresencio with walker. Pleasant and cooperative with assessment. Compliant with HS meds. Pt has not exhibited any delusional thinking when speaking with her. No agitation or behaviors noted. No PRNs given. Pt continent and makes her needs known. Pt stated she was tired. Pt was asleep at 2100. Currently sleeping. Bed rails up x 2 and alarm on. Will continue to monitor
--- NOTE | 2017-01-28 01:49 | NUR ---
Bed time Pt went to bed at 2000 and was asleep at 2100. No sleep during day. Currently sleeping. Will continue to monitor
--- NOTE | 2017-01-28 05:44 | NUR ---
Summary Pt has been sleeping since 2099. Up twice to use BR and went back to sleep. Pt alert x 3. Up ad cresencio. Pleasant and cooperative with cares. Compliant with all meds. No signs of delusional thoughts this shift. Has not talked about getting . No aggressive or agitated behaviors. No PRNs given. Currently sleeping. Bed rails up x 2 and alarm on. Will continue to monitor
[2017-01-28] MEDS: BETHANECHOL 25 MG TABLET PO SCH (05:58)
[2017-01-28] MEDS: SPIRONOLACTONE 50 MG TABLET PO SCH (07:51)
[2017-01-28] MEDS: MULTIVITAMIN PLAIN TABLET PO SCH (07:52)
[2017-01-28] MEDS: LUTEIN 20 MG PO SCH (07:52)
[2017-01-28] MEDS: QUETIAPINE 50 MG TABLET PO SCH ×2 (07:52→14:23)
[2017-01-28] MEDS: VERAPAMIL 80 MG TABLET PO SCH ×3 (07:52→20:59)
--- NOTE | 2017-01-28 09:00 | NUR ---
SLEEP 11.25 Hours Pt went to bed at 2200 last night and awoke at 0830. Pt slept a total of 11.25 hours as documented on the 15 minute observation forms.
--- NOTE | 2017-01-28 09:03 | NUR ---
Vaccine Assessment Call Called Patricia LOVE) @ [phone] requesting Flu and Pneumonia vaccine records for patient. Had to leave message.
[2017-01-28 09:30] VITALS: BP 128/56; PULSE 55; RESP 16; TEMP 98.1; O2SAT 97
--- NOTE | 2017-01-28 11:48 | GENPN ---
[facility] Subjective Date DATE: 01/27/17 TIME: 08:33 Subjective/Severity of Illness Medications Current Medications Medications (Trade) Dose Ordered Sig/Gaby Start Time Stop Time Status Last Admin Dose Admin Miscellaneous Medication (May use PRN orders) 1 PRN PRN 01/21/17 22:00 Haloperidol (Haldol) 0.5 mg Q6H PRN 01/21/17 22:00 Lorazepam (Ativan) 0.5 mg Q6H PRN 01/21/17 22:00 Lorazepam (Ativan) 0.5 mg Q6H PRN 01/21/17 22:00 Haloperidol Lactate (Haldol 5 Mg/ml Inj) 0.5 mg Q6H PRN 01/21/17 22:00 Acetaminophen (Tylenol Regular Strength) 1-2 tabs for arthri... Q6H PRN 01/21/17 23:00 01/21/17 23:01 DC Bethanechol Chloride (Urecholine 25 Mg) 25 mg DAILY 01/22/17 09:00 01/22/17 09:00 DC Bisacodyl (Dulcolax) 10 mg DAILY PRN 01/21/17 23:00 01/21/17 23:01 DC Bismuth Subsalicylate (Pepto-Bismol) 524 mg Q6H PRN 01/21/17 23:00 01/21/17 23:01 DC Donepezil HCl (Aricept) 10 mg DAILY 01/22/17 09:00 01/22/17 09:00 DC Guaifenesin (Robitussin) 200 mg Q4HR PRN 01/21/17 23:00 01/21/17 23:01 DC Lutein (Lutein) 20 mg DAILY 01/22/17 09:00 01/22/17 09:00 DC Pravastatin Sodium (Pravachol) 40 mg DAILY 01/22/17 09:00 01/22/17 09:00 DC Quetiapine Fumarate (Seroquel) 25 mg BID 01/22/17 09:00 01/22/17 09:00 DC Ranitidine HCl (Zantac) 150 mg HS 01/22/17 21:00 01/22/17 21:00 DC Spironolactone (Aldactone) 50 mg DAILY 01/22/17 09:00 01/22/17 09:00 DC Verapamil HCl (Calan) 80 mg TID 01/22/17 09:00 01/22/17 09:00 DC Al Hydroxide/Mg Hydroxide (Maalox) Take TID PRN for stom... TID PRN 01/21/17 23:00 Multivitamins Therapeutic (Theragran) 1 tab DAILY 01/22/17 09:00 01/27/17 08:21 1 TAB Acetaminophen (Tylenol Regular Strength) 1-2 tabs for arthri... Q6H PRN 01/22/17 05:00 Bethanechol Chloride (Urecholine 25 Mg) 25 mg DAILY 01/21/17 23:00 01/23/17 09:46 DC 01/23/17 08:46 25 MG Bisacodyl (Dulcolax) 10 mg DAILY PRN 01/21/17 23:00 Bismuth Subsalicylate (Pepto-Bismol) 524 mg Q6H PRN 01/22/17 05:00 Donepezil HCl (Aricept) 10 mg DAILY 01/21/17 23:00 01/24/17 08:32 DC 01/23/17 08:46 10 MG Guaifenesin (Robitussin) 200 mg Q4HR PRN 01/21/17 23:00 Lutein (Lutein) 20 mg DAILY 01/21/17 23:00 01/22/17 07:13 DC Pravastatin Sodium (Pravachol) 40 mg DAILY 01/21/17 23:00 01/22/17 07:08 DC Quetiapine Fumarate (Seroquel) 25 mg BID 01/21/17 23:00 01/23/17 07:10 DC 01/22/17 20:00 25 MG Ranitidine HCl (Zantac) 150 mg HS 01/21/17 23:00 01/26/17 19:55 150 MG Spironolactone (Aldactone) 50 mg DAILY 01/21/17 23:00 01/27/17 08:21 50 MG Verapamil HCl (Calan) 80 mg TID 01/21/17 23:00 01/27/17 08:21 80 MG Pravastatin Sodium (Pravachol) 40 mg HS 01/22/17 21:00 01/26/17 19:55 40 MG Non-Formulary Medication 2 DAILY 01/22/17 09:00 01/24/17 12:38 DC 01/24/17 08:31 2 Quetiapine Fumarate (Seroquel) 25 mg DAILY 01/23/17 09:00 01/25/17 09:55 DC 01/25/17 08:44 25 MG Quetiapine Fumarate (Seroquel) 50 mg HS 01/23/17 21:00 01/25/17 09:55 DC 01/24/17 20:17 50 MG Bethanechol Chloride (Urecholine 25 Mg) 25 mg ACB 01/24/17 06:30 01/27/17 05:46 25 MG Donepezil HCl (Aricept) 10 mg HS 01/24/17 21:00 01/26/17 19:55 10 MG Lutein (Lutein) 20 mg DAILY 01/25/17 09:00 01/27/17 08:21 20 MG Quetiapine Fumarate (Seroquel) 25 mg 09,13 01/25/17 13:00 01/27/17 08:21 25 MG Quetiapine Fumarate (Seroquel) 75 mg HS 01/25/17 21:00 01/26/17 19:55 75 MG Subjective Patient seen and chart reviewed. Case discussed with treatment team. Patient is more pleasant on interview today and does not perseverate on anger towards daughter throughout our visit. She continues to be delusional in regards to her relationship with the younger man but does not speak of it as frequently on the unit. Patient denies SI, HI, or AVH. Per staff, patient continues to have frequent minimal complaints about the unit but no significant behavioral difficulties. Patient slept well overnight. Appetite is good. VSS. No psychotropic PRNs required in the past 24 hours. Time of Service: 08:00 Start Time: 11:20 Stop Time: 11:40 Care >50% of this visit spent in counseling/coordination care. [facility] Exam Vitals Vital Signs Date Time Temp Pulse Resp B/P Pulse Ox O2 Delivery O2 Flow Rate FiO2 01/27/17 08:06 97.6 69 16 142/70 98 Room Air Physical examination performed by the hospitalist. Height (Feet): 5 Height (Inches): 5.00 Mental Status Exam Muscle Strength/Tone: Normal Dressing: Casual Grooming: Good Attitude: Cooperative Motor Activity: Normal Eye Contact: Good Speech: Normal Volume: Normal Rhythm: Appropriate Rhythm Sensory: Alert Orientation: Oriented to person, Oriented to place Mood: Neutral Affect: Other (Decreased lability, more pleasant with brighter affect) Rate of Thoughts: Appropriate Rate Thought Organization: Organized Associations: Illogical Abstract Reasoning: Poor abstract reasoning Thought Content: Delusions Perception/Psychotic: Perception Normal Attention Span/Concentration: Normal Language: Naming Intact Fund of Knowledge: Maria Guadalupe aware current events Memory: Grossly Intact Suicidal Ideation: Denies Homicidal Ideation: Denies Insight: Limited Judgment: Limited Impulse Control: Fair Assessment and Plan (1) Alzheimer's dementia Assessment: 01/22/17: Started Seroquel 25mg PO q HS. 01/23/17: Increased Seroquel to 50mg PO q HS. 01/24/17: Continue current care and monitor response to treatment; will likely consider addition of daytime Seroquel as well tomorrow. 01/25/17: Increase Seroquel to 25mg PO BID (AM and afternoon, and 75mg PO q HS to target continued delusional thoughts. 01/26/17: Delusional thought content believed to be more related to delusional disorder than dementia process. Will continue current care as patient is complaining of feeling sedated after recent increase. Irritability decreased but delusional thought content continue, though believed to be decreasing in intensity. 01/27/17: Increase Seroquel to 50mg PO BID (AM and afternoon), and 100mg PO q HS to target continued delusional thoughts. Monitor for oversedation. (2) History of TIAs (3) Cognitive and behavioral changes (4) Hyperlipidemia (5) Hypertension (6) GERD (gastroesophageal reflux disease) Qualifiers: Qualified Codes: K21.9 - Gastro-esophageal reflux disease without esophagitis (7) Osteoarthritis Qualifiers: Qualified Codes: M15.0 - Primary generalized (osteo)arthritis (8) Neuropathy (9) Macular degeneration (10) Hard of hearing Qualifiers: Qualified Codes: H91.93 - Unspecified hearing loss, bilateral YONI AJ MD Jan 27, 2017 08:33
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
[2017-01-28 17:06] VITALS: BP 136/67; PULSE 68; RESP 16; TEMP 97.8; O2SAT 97
--- NOTE | 2017-01-28 18:35 | NUR ---
Summary Pt was cooperative with assessment cares and medications. Pt is able to make her needs known. She has received no PRN medications this shift and has had no behaviors and no broadcasting of delusional thoughts has been witnessed. Pt has taken all medications and her attitude today was much improved over earlier in the week. Pt is currently in her bedroom reading.
[2017-01-28 20:42] VITALS: BP 163/71; PULSE 61; RESP 18; TEMP 97.2
[2017-01-28 20:59] VITALS: PULSE 61; RESP 18
[2017-01-28] MEDS: PRAVASTATIN 40 MG TABLET PO SCH (20:59)
[2017-01-28] MEDS: QUETIAPINE 100 MG TABLET PO SCH (20:59)
[2017-01-28] MEDS: RANITIDINE 150 MG TABLET PO SCH (20:59)
[2017-01-28] MEDS: DONEPEZIL 10 MG TABLET PO SCH (20:59)
--- NOTE | 2017-01-28 21:15 | NUR ---
Bedtime/Status Pt took meds whole without difficulty. Heart murmur heard. Pt in pleasant mood. Pt able to do own HS cares and remains steady on her feet with walker. Pt in bed at 2114. Will continue to monitor. Bed locked and low. Bed alarm on. Call light in reach.
--- NOTE | 2017-01-29 01:27 | NUR ---
Chart Check 24 hour chart check completed
[2017-01-29] MEDS: BETHANECHOL 25 MG TABLET PO SCH (06:44)
--- NOTE | 2017-01-29 07:30 | NUR ---
Summary Pt up ad cresencio and did bedtime cares by self. Pt slept around 8 hours and continues to sleep. Pt taking medications whole and chews them in half or more before swallowing them. No delusional thinking noted. Pt pleasant and cooperative. Took 0630 medication without difficulty. Pt c/o back pain but refuses pain medication for it. No other c/o voiced. Pt in no acute distress. Will continue to monitor. Call light in reach. Bed locked and low. Bed alarm on.
[2017-01-29] MEDS: SPIRONOLACTONE 50 MG TABLET PO SCH (09:06)
[2017-01-29] MEDS: LUTEIN 20 MG PO SCH (09:06)
[2017-01-29] MEDS: QUETIAPINE 50 MG TABLET PO SCH ×2 (09:06→14:01)
[2017-01-29] MEDS: MULTIVITAMIN PLAIN TABLET PO SCH (09:06)
[2017-01-29] MEDS: VERAPAMIL 80 MG TABLET PO SCH ×3 (09:06→21:02)
[2017-01-29 09:58] VITALS: PULSE 63
--- NOTE | 2017-01-29 14:02 | NUR ---
pt sitting up in chair in room. no complaints of pain or signs of distress this shift. she has requested to go home several times. no concerns at this time
--- NOTE | 2017-01-29 16:26 | PNPDOC ---
Subjective Date DATE: 01/29/17 TIME: 16:14 Subjective Milena is seen today in follow up. She is up in dining area. Irritable, but cooperative. "I want to go home." Objective Vital Signs Vital signs Vital Signs Date Time Temp Pulse Resp B/P Pulse Ox O2 Delivery O2 Flow Rate FiO2 01/29/17 09:58 63 01/28/17 20:59 18 01/28/17 20:42 97.2 163/71 Room Air 01/28/17 17:06 97 Height (Feet): 5 Height (Inches): 5.00 Weight (Kilograms): 69.360 General General Appearance: Alert, No Acute Distress Respiratory (Brief) Respiratory: FOUND: clear all moore, equal bilaterally, symmetrical, NOT FOUND : rales, wheezes Cardiovascular (Brief) Cardiac: FOUND: regular rate, regular rhythm, NOT FOUND: pedal edema Abdomen (Brief) Abdominal: FOUND: BS normo active x4, soft, NOT FOUND: tender Extremities (Brief) Extremity : Side: Bilateral Extremity Finding: NOT FOUND: edema Integumentary (Brief) Integumentary: FOUND: dry, pink, warm Assessment & Plan Problems: (1) Hypernatremia Status: Acute Assessment & Plan: Present on admission (2) Cognitive and behavioral changes Status: Acute (3) Alzheimer's dementia Status: Chronic (4) Hyperlipidemia Status: Chronic (5) Hypertension (6) History of TIAs Status: Chronic (7) GERD (gastroesophageal reflux disease) Status: Chronic Qualifiers: Esophagitis presence: esophagitis presence not specified Qualified Codes: K21.9 - Gastro-esophageal reflux disease without esophagitis (8) Osteoarthritis Status: Chronic Qualifiers: Osteoarthritis location: multiple joints Osteoarthritis type: primary Qualified Codes: M15.0 - Primary generalized (osteo)arthritis (9) Neuropathy Status: Chronic (10) Macular degeneration Status: Chronic (11) Hard of hearing Status: Chronic Qualifiers: Hearing loss type: unspecified Laterality: bilateral Qualified Codes: H91.93 - Unspecified hearing loss, bilateral Plan/Intensity of Service 01/29/17- Pt. remains fairly stable medically. Continue current medications. BP is marginally elevated- Could consider changing Verapamil to Cardizem CD for daily dosing. Repeat labs in AM. Monitor K on Aldactone. Delusion behavior persists. Code Status Do Not Resuscitate Hospital Course Summary Disclaimer The hospital course summary below is not to be considered part of the above Progress Note. Hospital Course Summary Agree with admission to the [facility] unit for further psychiatric evaluation and treatment Monitor blood pressure and continue on Verapamil Agree with continuation of other chronic home medications. Tylenol as needed for chronic back pain Encourage patient to participate in unit activities and provide a safe environment Psychiatric management as per Dr Arguello The hospitalist service will continue to follow patient and medical manage her existing medical comorbidities. At time of discharge medical care will return to PCP in Dr Blayne Laura 01/25/17 Labs reviewed. Mild hypernatremia noted. Encourage oral intake. Lipid panel, vitamin B12, folate, hemoglobin A1c were all unremarkable. Vital signs overall have been stable, mild to moderate elevations in blood pressure. She is on spironolactone and verapamil for antihypertensives. Psychiatric progress notes reviewed. Seroquel was increased to 50 mg HS; considering adding daytime Seroquel. 01/27/17 Medically stable. Blood pressure continues to be moderately elevated, though nothing alarming. Continue verapamil and spironolactone. Psychiatric progress notes, reviewed: Delusional thoughts more likely related to delusional disorder than dementia. 01/29/17- Pt. remains fairly stable medically. Continue current medications. BP is marginally elevated- Could consider changing Verapamil to Cardizem CD for daily dosing. Repeat labs in AM. Monitor K on Aldactone. Delusion behavior persists. CARLA LEAHY APRN Jan 29, 2017 16:17
--- NOTE | 2017-01-29 16:55 | NUR ---
pt attempting to get out of chair. assisted by staff to bathroom to assist in urination. pt unable to void. bladder scanned at this time. 268ml in bladder. radiology at bedside for KUB. AMBRIZ notified. pt back to bed, states that her lower left abdomen hurts. pt will not stay in bed, back in chair and in group room. Addendum: 01/29/17 at 1809 by EVANGELISTA FLOWERS RN this is charted on the wrong pt. corrected and charted to correct chart
--- NOTE | 2017-01-29 17:15 | NUR ---
pt states that she is dizzy while ambulating BP 143/65 heart rate 59 O2 sat 94% on RA. pt assisted to bed. she has equal hand reports analyst, pupils are equal and reactive, her gate did not change from this AM. will monitor frequently
--- NOTE | 2017-01-29 17:22 | GENPN ---
[facility] Subjective Date DATE: 01/29/17 TIME: 17:16 Subjective/Severity of Illness Medications Current Medications Medications (Trade) Dose Ordered Sig/Gaby Start Time Stop Time Status Last Admin Dose Admin Miscellaneous Medication (May use PRN orders) 1 PRN PRN 01/21/17 22:00 Haloperidol (Haldol) 0.5 mg Q6H PRN 01/21/17 22:00 Lorazepam (Ativan) 0.5 mg Q6H PRN 01/21/17 22:00 Lorazepam (Ativan) 0.5 mg Q6H PRN 01/21/17 22:00 Haloperidol Lactate (Haldol 5 Mg/ml Inj) 0.5 mg Q6H PRN 01/21/17 22:00 Acetaminophen (Tylenol Regular Strength) 1-2 tabs for arthri... Q6H PRN 01/21/17 23:00 01/21/17 23:01 DC Bethanechol Chloride (Urecholine 25 Mg) 25 mg DAILY 01/22/17 09:00 01/22/17 09:00 DC Bisacodyl (Dulcolax) 10 mg DAILY PRN 01/21/17 23:00 01/21/17 23:01 DC Bismuth Subsalicylate (Pepto-Bismol) 524 mg Q6H PRN 01/21/17 23:00 01/21/17 23:01 DC Donepezil HCl (Aricept) 10 mg DAILY 01/22/17 09:00 01/22/17 09:00 DC Guaifenesin (Robitussin) 200 mg Q4HR PRN 01/21/17 23:00 01/21/17 23:01 DC Lutein (Lutein) 20 mg DAILY 01/22/17 09:00 01/22/17 09:00 DC Pravastatin Sodium (Pravachol) 40 mg DAILY 01/22/17 09:00 01/22/17 09:00 DC Quetiapine Fumarate (Seroquel) 25 mg BID 01/22/17 09:00 01/22/17 09:00 DC Ranitidine HCl (Zantac) 150 mg HS 01/22/17 21:00 01/22/17 21:00 DC Spironolactone (Aldactone) 50 mg DAILY 01/22/17 09:00 01/22/17 09:00 DC Verapamil HCl (Calan) 80 mg TID 01/22/17 09:00 01/22/17 09:00 DC Al Hydroxide/Mg Hydroxide (Maalox) Take TID PRN for stom... TID PRN 01/21/17 23:00 Multivitamins Therapeutic (Theragran) 1 tab DAILY 01/22/17 09:00 01/29/17 09:06 1 TAB Acetaminophen (Tylenol Regular Strength) 1-2 tabs for arthri... Q6H PRN 01/22/17 05:00 Bethanechol Chloride (Urecholine 25 Mg) 25 mg DAILY 01/21/17 23:00 01/23/17 09:46 DC 01/23/17 08:46 25 MG Bisacodyl (Dulcolax) 10 mg DAILY PRN 01/21/17 23:00 Bismuth Subsalicylate (Pepto-Bismol) 524 mg Q6H PRN 01/22/17 05:00 Donepezil HCl (Aricept) 10 mg DAILY 01/21/17 23:00 01/24/17 08:32 DC 01/23/17 08:46 10 MG Guaifenesin (Robitussin) 200 mg Q4HR PRN 01/21/17 23:00 Lutein (Lutein) 20 mg DAILY 01/21/17 23:00 01/22/17 07:13 DC Pravastatin Sodium (Pravachol) 40 mg DAILY 01/21/17 23:00 01/22/17 07:08 DC Quetiapine Fumarate (Seroquel) 25 mg BID 01/21/17 23:00 01/23/17 07:10 DC 01/22/17 20:00 25 MG Ranitidine HCl (Zantac) 150 mg HS 01/21/17 23:00 01/28/17 20:59 150 MG Spironolactone (Aldactone) 50 mg DAILY 01/21/17 23:00 01/29/17 09:06 50 MG Verapamil HCl (Calan) 80 mg TID 01/21/17 23:00 01/29/17 15:30 80 MG Pravastatin Sodium (Pravachol) 40 mg HS 01/22/17 21:00 01/28/17 20:59 40 MG Non-Formulary Medication 2 DAILY 01/22/17 09:00 01/24/17 12:38 DC 01/24/17 08:31 2 Quetiapine Fumarate (Seroquel) 25 mg DAILY 01/23/17 09:00 01/25/17 09:55 DC 01/25/17 08:44 25 MG Quetiapine Fumarate (Seroquel) 50 mg HS 01/23/17 21:00 01/25/17 09:55 DC 01/24/17 20:17 50 MG Bethanechol Chloride (Urecholine 25 Mg) 25 mg ACB 01/24/17 06:30 01/29/17 06:44 25 MG Donepezil HCl (Aricept) 10 mg HS 01/24/17 21:00 01/28/17 20:59 10 MG Lutein (Lutein) 20 mg DAILY 01/25/17 09:00 01/29/17 09:06 20 MG Quetiapine Fumarate (Seroquel) 25 mg 09,13 01/25/17 13:00 01/27/17 09:36 DC 01/27/17 08:21 25 MG Quetiapine Fumarate (Seroquel) 75 mg HS 01/25/17 21:00 01/27/17 09:36 DC 01/26/17 19:55 75 MG Quetiapine Fumarate (Seroquel) 50 mg 09,13 01/27/17 13:00 01/29/17 14:01 50 MG Quetiapine Fumarate (Seroquel) 100 mg HS 01/27/17 21:00 01/28/17 20:59 100 MG Subjective Patient seen and chart reviewed. Case discussed with treatment team. Patient is irritable throughout interview today after I brought up her visit with her daughter, which reportedly did not go well yesterday. She continues to be delusional in regards to her relationship with the younger man but does not speak of it as frequently on the unit. I discussed with the patient that the primary concern at this point is that she does not leave her facility without supervision. She states she has never done this despite reports upon admission but says the only place she could go is to doctor's visits, etc. and she needs transportation for this anyway. She doesn't disagree with this recommendation though she is upset that someone said she left unsupervised previously. She does perseverate on discharge because "there's nothing to do here." Patient denies SI, HI, or AVH. Per staff, patient continues to have frequent minimal complaints about the unit but no significant behavioral difficulties. Patient slept 10.5 hours uninterrupted overnight. Appetite is good. VSS. No psychotropic PRNs required in the past 24 hours. Time of Service: 0800 Start Time: 15:20 Stop Time: 15:40 Care >50% of this visit spent in counseling/coordination care. [facility] Exam Vitals Vital Signs Date Time Temp Pulse Resp B/P Pulse Ox O2 Delivery O2 Flow Rate FiO2 01/29/17 09:58 63 01/28/17 20:59 18 01/28/17 20:42 97.2 163/71 Room Air 01/28/17 17:06 97 Physical examination performed by the hospitalist. Height (Feet): 5 Height (Inches): 5.00 Mental Status Exam Muscle Strength/Tone: Normal Dressing: Casual Grooming: Good Attitude: Tense, Argumentative Motor Activity: Normal Eye Contact: Good Speech: Normal Volume: Normal Rhythm: Appropriate Rhythm Sensory: Alert Orientation: Oriented to person, Oriented to place Mood: Angry (at daughter) Affect: Labile Rate of Thoughts: Appropriate Rate Thought Organization: Organized Associations: Intact Abstract Reasoning: Poor abstract reasoning Thought Content: Delusions (decreased in intensity), Ruminations Perception/Psychotic: Perception Normal Attention Span/Concentration: Normal Language: Naming Intact Fund of Knowledge: Other (Decreased but aware of current eevents) Memory: Poor-recent Suicidal Ideation: Denies Homicidal Ideation: Denies Insight: Limited Judgment: Limited Impulse Control: Poor Assessment and Plan (1) Alzheimer's dementia Assessment: 01/22/17: Started Seroquel 25mg PO q HS. 01/23/17: Increased Seroquel to 50mg PO q HS. 01/24/17: Continue current care and monitor response to treatment; will likely consider addition of daytime Seroquel as well tomorrow. 01/25/17: Increase Seroquel to 25mg PO BID (AM and afternoon, and 75mg PO q HS to target continued delusional thoughts. 01/26/17: Delusional thought content believed to be more related to delusional disorder than dementia process. Will continue current care as patient is complaining of feeling sedated after recent increase. Irritability decreased but delusional thought content continue, though believed to be decreasing in intensity. 01/27/17: Increase Seroquel to 50mg PO BID (AM and afternoon), and 100mg PO q HS to target continued delusional thoughts. Monitor for oversedation. 01/29/17: Patient does not appear to be oversedated at this dosage. As I believe this a well-formed delusion, goal of treatment would be to decrease intensity of delusions but will likely not rid of it completely. Patient has not been brining up delusional thoughts on unit other than when specifically asked. Primary goal at this point is to ensure patient safety and that she does not leave facility unit unsupervised. She agrees to this today but denies she did so previously. She may need locked unit if unable to comply with this recommendation. (2) History of TIAs (3) Cognitive and behavioral changes (4) Hyperlipidemia (5) Hypertension (6) GERD (gastroesophageal reflux disease) Qualifiers: Qualified Codes: K21.9 - Gastro-esophageal reflux disease without esophagitis (7) Osteoarthritis Qualifiers: Qualified Codes: M15.0 - Primary generalized (osteo)arthritis (8) Neuropathy (9) Macular degeneration (10) Hard of hearing Qualifiers: Qualified Codes: H91.93 - Unspecified hearing loss, bilateral YONI AJ MD Jan 29, 2017 17:19
[2017-01-29] MEDS: PRAVASTATIN 40 MG TABLET PO SCH (21:02)
[2017-01-29] MEDS: RANITIDINE 150 MG TABLET PO SCH (21:02)
[2017-01-29] MEDS: QUETIAPINE 100 MG TABLET PO SCH (21:02)
[2017-01-29] MEDS: DONEPEZIL 10 MG TABLET PO SCH (21:02)
[2017-01-29 22:52] VITALS: BP 134/67; PULSE 61; RESP 16; TEMP 98.2; O2SAT 96
--- NOTE | 2017-01-30 00:10 | NUR ---
Status/Bedtime Pt. is asleep at 1974. Awake at 2014 and asleep again at 2114. Pt. is pleasant and cooperative. Pt. isolates in her room. Pt. is compliant with meds. No delusional thinking noted or reported. Pt. has complained to staff that she doesn't like that staff always tells her what to do. Pt. is reassured that is not the intent of the staff. Pt. is resting in bed.
--- NOTE | 2017-01-30 02:15 | NUR ---
Chart Check 24 hour chart check completed
[2017-01-30] MEDS: BETHANECHOL 25 MG TABLET PO SCH (05:39)
[2017-01-30 06:48] LABS: BASOPHILS % (AUTO) 0.5 % (0-2); EOSINOPHILS # (AUTO) 0.1 T/MM3 (0-0.5); EOSINOPHILS % (AUTO) 2.2 % (0-4); HCT - HEMATOCRIT 41.1 % (36-46); HGB - HEMOGLOBIN 13.5 GM/DL (12-16); IMMATURE GRANULOCYTE # (AUTO) 0.01 T/MM3 (0.00-0.03); IMMATURE GRANULOCYTE % (AUTO) 0.2 % (0.0-0.5); LYMPHOCYTES # (AUTO) 1.9 T/MM3 (1-4.8); LYMPHOCYTES % (AUTO) 34.6 % (23-45); MEAN CORPUSCULAR HGB CONC(MCHC 32.8 GM/DL (31-37); MEAN CORPUSCULAR VOLUME 91.3 UM3 (80-100); MONOCYTES # (AUTO) 0.5 T/MM3 (0-0.8); MONOCYTES % (AUTO) 8.4 % (0-9.0); NEUTROPHILS % (AUTO) 54.1 % (33-66); WBC - WHITE BLOOD COUNT 5.6 T/MM3 (4.5-11.0)
[2017-01-30 06:53] LABS: POTASSIUM 4.5 MEQ/L (3.6-5)
[2017-01-30 06:54] LABS: ALBUMIN 3.2 G/DL (3.5-5.0); ANION GAP 11 MEQ/L (5-15); BUN/CREATININE RATIO 43 RATIO (6-26); CALCIUM 9.1 MG/DL (8.4-10.2); CHLORIDE 107 MEQ/L (98-107); CO2 - CARBON DIOXIDE 25 MEQ/L (22-30); CREATININE 0.7 MG/DL (0.7-1.2); GLOMERULAR FILTRATION RATE 81; GLUCOSE 93 MG/DL (65-110); MAGNESIUM 2.2 MG/DL (1.6-2.3); SODIUM 143 MEQ/L (134-144)
--- NOTE | 2017-01-30 07:58 | NUR ---
Summary Pt. remains cooperative with staff. No delusional thinking is noted or reported. No prn meds given. Pt. is compliant with her lab draw this morning and morning meds. Pt. took med whole but chews the pill before swallowing. Pt. is resting in bed at his time.
[2017-01-30 08:00] VITALS: BP 152/79; PULSE 65; PULSE 79; RESP 16; TEMP 97.6; O2SAT 94
[2017-01-30] MEDS: LUTEIN 20 MG PO SCH (08:49)
[2017-01-30] MEDS: MULTIVITAMIN PLAIN TABLET PO SCH (08:49)
[2017-01-30] MEDS: VERAPAMIL 80 MG TABLET PO SCH ×3 (08:50→21:14)
[2017-01-30] MEDS: SPIRONOLACTONE 50 MG TABLET PO SCH (08:50)
[2017-01-30] MEDS: QUETIAPINE 50 MG TABLET PO SCH ×2 (08:50→13:00)
[2017-01-30 16:00] VITALS: BP 145/74; PULSE 82; RESP 18; TEMP 97.6; O2SAT 95
--- NOTE | 2017-01-30 16:18 | GENPN ---
[facility] Subjective Date DATE: 01/30/17 TIME: 09:59 Subjective/Severity of Illness Medications Current Medications Medications (Trade) Dose Ordered Sig/Gaby Start Time Stop Time Status Last Admin Dose Admin Miscellaneous Medication (May use PRN orders) 1 PRN PRN 01/21/17 22:00 Haloperidol (Haldol) 0.5 mg Q6H PRN 01/21/17 22:00 Lorazepam (Ativan) 0.5 mg Q6H PRN 01/21/17 22:00 Lorazepam (Ativan) 0.5 mg Q6H PRN 01/21/17 22:00 Haloperidol Lactate (Haldol 5 Mg/ml Inj) 0.5 mg Q6H PRN 01/21/17 22:00 Acetaminophen (Tylenol Regular Strength) 1-2 tabs for arthri... Q6H PRN 01/21/17 23:00 01/21/17 23:01 DC Bethanechol Chloride (Urecholine 25 Mg) 25 mg DAILY 01/22/17 09:00 01/22/17 09:00 DC Bisacodyl (Dulcolax) 10 mg DAILY PRN 01/21/17 23:00 01/21/17 23:01 DC Bismuth Subsalicylate (Pepto-Bismol) 524 mg Q6H PRN 01/21/17 23:00 01/21/17 23:01 DC Donepezil HCl (Aricept) 10 mg DAILY 01/22/17 09:00 01/22/17 09:00 DC Guaifenesin (Robitussin) 200 mg Q4HR PRN 01/21/17 23:00 01/21/17 23:01 DC Lutein (Lutein) 20 mg DAILY 01/22/17 09:00 01/22/17 09:00 DC Pravastatin Sodium (Pravachol) 40 mg DAILY 01/22/17 09:00 01/22/17 09:00 DC Quetiapine Fumarate (Seroquel) 25 mg BID 01/22/17 09:00 01/22/17 09:00 DC Ranitidine HCl (Zantac) 150 mg HS 01/22/17 21:00 01/22/17 21:00 DC Spironolactone (Aldactone) 50 mg DAILY 01/22/17 09:00 01/22/17 09:00 DC Verapamil HCl (Calan) 80 mg TID 01/22/17 09:00 01/22/17 09:00 DC Al Hydroxide/Mg Hydroxide (Maalox) Take TID PRN for stom... TID PRN 01/21/17 23:00 Multivitamins Therapeutic (Theragran) 1 tab DAILY 01/22/17 09:00 01/30/17 08:49 1 TAB Acetaminophen (Tylenol Regular Strength) 1-2 tabs for arthri... Q6H PRN 01/22/17 05:00 Bethanechol Chloride (Urecholine 25 Mg) 25 mg DAILY 01/21/17 23:00 01/23/17 09:46 DC 01/23/17 08:46 25 MG Bisacodyl (Dulcolax) 10 mg DAILY PRN 01/21/17 23:00 Bismuth Subsalicylate (Pepto-Bismol) 524 mg Q6H PRN 01/22/17 05:00 Donepezil HCl (Aricept) 10 mg DAILY 01/21/17 23:00 01/24/17 08:32 DC 01/23/17 08:46 10 MG Guaifenesin (Robitussin) 200 mg Q4HR PRN 01/21/17 23:00 Lutein (Lutein) 20 mg DAILY 01/21/17 23:00 01/22/17 07:13 DC Pravastatin Sodium (Pravachol) 40 mg DAILY 01/21/17 23:00 01/22/17 07:08 DC Quetiapine Fumarate (Seroquel) 25 mg BID 01/21/17 23:00 01/23/17 07:10 DC 01/22/17 20:00 25 MG Ranitidine HCl (Zantac) 150 mg HS 01/21/17 23:00 01/29/17 21:02 150 MG Spironolactone (Aldactone) 50 mg DAILY 01/21/17 23:00 01/30/17 08:50 50 MG Verapamil HCl (Calan) 80 mg TID 01/21/17 23:00 01/30/17 08:50 80 MG Pravastatin Sodium (Pravachol) 40 mg HS 01/22/17 21:00 01/29/17 21:02 40 MG Non-Formulary Medication 2 DAILY 01/22/17 09:00 01/24/17 12:38 DC 01/24/17 08:31 2 Quetiapine Fumarate (Seroquel) 25 mg DAILY 01/23/17 09:00 01/25/17 09:55 DC 01/25/17 08:44 25 MG Quetiapine Fumarate (Seroquel) 50 mg HS 01/23/17 21:00 01/25/17 09:55 DC 01/24/17 20:17 50 MG Bethanechol Chloride (Urecholine 25 Mg) 25 mg ACB 01/24/17 06:30 01/30/17 05:39 25 MG Donepezil HCl (Aricept) 10 mg HS 01/24/17 21:00 01/29/17 21:02 10 MG Lutein (Lutein) 20 mg DAILY 01/25/17 09:00 01/30/17 08:49 20 MG Quetiapine Fumarate (Seroquel) 25 mg 09,13 01/25/17 13:00 01/27/17 09:36 DC 01/27/17 08:21 25 MG Quetiapine Fumarate (Seroquel) 75 mg HS 01/25/17 21:00 01/27/17 09:36 DC 01/26/17 19:55 75 MG Quetiapine Fumarate (Seroquel) 50 mg 09,13 01/27/17 13:00 01/30/17 08:50 50 MG Quetiapine Fumarate (Seroquel) 100 mg HS 01/27/17 21:00 01/29/17 21:02 100 MG Subjective Patient seen and chart reviewed. Case discussed with treatment team. Patient sitting in room "bird watching" on approach and is pleasant throughout interview, saying that the sun has helped her mood. She does not bring up the topic of her daughter or boyfriend today. She does not appear to be oversedated. Patient denies SI, HI, or AVH. Per staff, patient has not had any significant behavioral difficulties. Patient slept well overnight, though interrupted for a short time after she went to bed. Appetite is good. VSS. No psychotropic PRNs required in the past 24 hours. Time of Service: 08:00 Start Time: 11:20 Stop Time: 11:40 Care >50% of this visit spent in counseling/coordination care. [facility] Exam Vitals Vital Signs Date Time Temp Pulse Resp B/P Pulse Ox O2 Delivery O2 Flow Rate FiO2 01/30/17 08:00 97.6 79 16 152/79 94 Room Air Physical examination performed by the hospitalist. Height (Feet): 5 Height (Inches): 5.00 Mental Status Exam Muscle Strength/Tone: Normal Dressing: Casual Grooming: Good Attitude: Defensive Motor Activity: Normal Eye Contact: Good Speech: Normal Volume: Normal Rhythm: Appropriate Rhythm Sensory: Alert Orientation: Oriented X4 Mood: Neutral Affect: Other (Less irritable than previously) Rate of Thoughts: Appropriate Rate Thought Organization: Organized Associations: Intact Abstract Reasoning: Poor abstract reasoning Thought Content: Delusions (reduced in intensity) Perception/Psychotic: Perception Normal Attention Span/Concentration: Normal Language: Naming Intact Fund of Knowledge: Maria Guadalupe aware current events Memory: Grossly Intact Suicidal Ideation: Denies Homicidal Ideation: Denies Insight: Limited Judgment: Limited Impulse Control: Fair Laboratory Tests Test 01/30/17 05:43 White Blood Count 5.6T/MM3 Red Blood Count 4.50M/MM3 Hemoglobin 13.5GM/DL Hematocrit 41.1% Mean Corpuscular Volume 91.3UM3 Mean Corpuscular Hemoglobin 30.0UUG Mean Corpuscular Hemoglobin Concent 32.8GM/DL RDW Standard Deviation 42.3FL Platelet Count 194T/MM3 Mean Platelet Volume 10.0UM3 Immature Granulocyte % (Auto) 0.2% Neutrophils (%) (Auto) 54.1% Lymphocytes (%) (Auto) 34.6% Monocytes (%) (Auto) 8.4% Eosinophils (%) (Auto) 2.2% Basophils (%) (Auto) 0.5% Absolute Immature Granulocyte (auto 0.01T/MM3 Absolute Neutrophils (auto) 3.0T/MM3 Absolute Lymphocytes (auto) 1.9T/MM3 Absolute Monocytes (auto) 0.5T/MM3 Absolute Eosinophils (auto) 0.1T/MM3 Absolute Basophils (auto) 0.0T/MM3 Turbidity < 20 Sodium Level 143MEQ/L Potassium Level 4.5MEQ/L Chloride Level 107MEQ/L Carbon Dioxide Level 25MEQ/L Anion Gap 11MEQ/L Blood Urea Nitrogen 30.0MG/DL Creatinine 0.7MG/DL Glomerular Filtration Rate Calc 81 BUN/Creatinine Ratio 43RATIO Glucose Level 93MG/DL Calculated Osmolality 281MOSM/KG Calcium Level 9.1MG/DL Phosphorus Level 4.0MG/DL Magnesium Level 2.2MG/DL Icterus Index < 2 Albumin 3.2G/DL Chemistry Specimen Hemolysis < 15 Assessment and Plan (1) Alzheimer's dementia Assessment: 01/22/17: Started Seroquel 25mg PO q HS. 01/23/17: Increased Seroquel to 50mg PO q HS. 01/24/17: Continue current care and monitor response to treatment; will likely consider addition of daytime Seroquel as well tomorrow. 01/25/17: Increase Seroquel to 25mg PO BID (AM and afternoon, and 75mg PO q HS to target continued delusional thoughts. 01/26/17: Delusional thought content believed to be more related to delusional disorder than dementia process. Will continue current care as patient is complaining of feeling sedated after recent increase. Irritability decreased but delusional thought content continue, though believed to be decreasing in intensity. 01/27/17: Increase Seroquel to 50mg PO BID (AM and afternoon), and 100mg PO q HS to target continued delusional thoughts. Monitor for oversedation. 01/29/17: Patient does not appear to be oversedated at this dosage. As I believe this a well-formed delusion, goal of treatment would be to decrease intensity of delusions but will likely not rid of it completely. Patient has not been brining up delusional thoughts on unit other than when specifically asked. Primary goal at this point is to ensure patient safety and that she does not leave facility unit unsupervised. She agrees to this today but denies she did so previously. She may need locked unit if unable to comply with this recommendation. 01/30/17: Continue current care; review goals of treatment as above with treatment team tomorrow for arrangements after discharge. (2) History of TIAs (3) Cognitive and behavioral changes (4) Hyperlipidemia (5) Hypertension (6) GERD (gastroesophageal reflux disease) Qualifiers: Qualified Codes: K21.9 - Gastro-esophageal reflux disease without esophagitis (7) Osteoarthritis Qualifiers: Qualified Codes: M15.0 - Primary generalized (osteo)arthritis (8) Neuropathy (9) Macular degeneration (10) Hard of hearing Qualifiers: Qualified Codes: H91.93 - Unspecified hearing loss, bilateral YONI AJ MD Jan 30, 2017 09:59
--- NOTE | 2017-01-30 18:09 | NUR ---
SHIFT SUMMARY 7A-7P Pt takes all medications as prescribed this shift. She is pleasant and cooperative entire shift. She did not mention anything about "the janitors son". She was pleasant with staff and other patients all shift. She is currently watching tv in day room.
[2017-01-30 20:28] VITALS: BP 116/61; PULSE 52; RESP 18; TEMP 98.2; O2SAT 92
[2017-01-30] MEDS: RANITIDINE 150 MG TABLET PO SCH (21:14)
[2017-01-30] MEDS: PRAVASTATIN 40 MG TABLET PO SCH (21:14)
[2017-01-30] MEDS: DONEPEZIL 10 MG TABLET PO SCH (21:14)
[2017-01-30] MEDS: QUETIAPINE 100 MG TABLET PO SCH (21:14)
--- NOTE | 2017-01-30 22:55 | NUR ---
status/fall pt sitting in her chair in room when this nurse assumes cares. alert and oriented x3. pleasant and cooperative. compliant with hs medication. at 2200 staff heard some one yelling, went to pt room found pt sitting on the floor behind door. vitals obtained. ROM performed. gait belt used with 3 staff to assist up to feet. no injuries noted. pt stated that she lost her balance after she turned off light, hit wall and slid down to her bottom. DPOA, warehouse lead and tele-hospitalist notified. pt helped back to her bed, has had no complaints of pain or discomfort.
--- NOTE | 2017-01-31 00:37 | NUR ---
Chart Check 24 hour chart check completed
--- NOTE | 2017-01-31 00:38 | NUR ---
Bedtime Noted in observation record; pt. went to sleep at 2315. Continues to sleep; no distress noted. Bed alarm on.
[2017-01-31] MEDS: BETHANECHOL 25 MG TABLET PO SCH (06:03)
[2017-01-31] MEDS: ACETAMINOPHEN 325 MG TABLET PO PRN ×2 (06:22→20:14)
--- NOTE | 2017-01-31 06:23 | NUR ---
Pain Slept well overnight. Up with standby assist and FWW to bathroom and back to bed. c/o pain bilat. buttock region status post fall; rates '8'; Tylenol given.
[2017-01-31 06:35] VITALS: BP 137/67; PULSE 69; RESP 20; TEMP 97.9; O2SAT 93
[2017-01-31 08:00] VITALS: BP 137/67; PULSE 69; RESP 20; TEMP 97.9; O2SAT 93
[2017-01-31] MEDS: LUTEIN 20 MG PO SCH (08:57)
[2017-01-31] MEDS: QUETIAPINE 50 MG TABLET PO SCH ×2 (08:57→13:14)
[2017-01-31] MEDS: SPIRONOLACTONE 50 MG TABLET PO SCH (08:57)
[2017-01-31] MEDS: VERAPAMIL 80 MG TABLET PO SCH ×3 (08:57→20:13)
[2017-01-31] MEDS: MULTIVITAMIN PLAIN TABLET PO SCH (08:57)
--- NOTE | 2017-01-31 09:00 | NUR ---
SLEEP 8.0 Hours Pt went to bed at 1930 last night and awoke at 0815. Pt slept a total of 8.0 hours as documented on the 15 minute observation forms.
--- NOTE | 2017-01-31 11:22 | PNPDOC ---
Subjective Date DATE: 01/31/17 TIME: 11:14 Stephany Abbott was seen while resting in bed after breakfast. She is awake, simply resting in bed. She reports to me that she fell yesterday. She states that she stood up out of her chair, began to walk, and then she fell straight down onto her "rear". Nursing staff reported that the "pt stated that she lost her balance after she turned off light, hit wall and slid down to her bottom". Initially, she reported no injuries. Now, she complains of lower back and coccygeal pain. She is able to ambulate without trouble. She denies any distal paresthesias. She denies any other symptoms such as chest pain, difficulty breathing, abdominal pain or GI complaints. Objective Vital Signs Vital signs Vital Signs Date Time Temp Pulse Resp B/P Pulse Ox O2 Delivery O2 Flow Rate FiO2 01/31/17 08:00 97.9 69 20 137/67 93 Room Air Height (Feet): 5 Height (Inches): 5.00 Weight (Kilograms): 69.360 General General Appearance: Alert, Orientated x 3, Well Nourished, Well Developed, No Acute Distress Eyes (Brief) Eyes: FOUND: PERRL, NOT FOUND: scleral icterus ENMT (Brief) ENMT: FOUND: mucosa moist, NOT FOUND: pharnyx erythema Respiratory (Brief) Respiratory: FOUND: clear all moore, equal bilaterally Cardiovascular (Brief) Cardiac: FOUND: regular rate, regular rhythm Abdomen (Brief) Abdominal: FOUND: BS normo active x4, soft, NOT FOUND: distended Extremities (Brief) Extremity : Side: Bilateral Extremity Finding: NOT FOUND: edema Musculoskeletal (Brief) Musculoskeletal: FOUND: tenderness (diffuse lumbar spinous process tenderness and paraspinal tenderness. She also has tenderness to the coccyx and left posterior superior iliac spine.) Integumentary (Brief) Integumentary: FOUND: dry, pink, warm Psychiatric (Brief) Psychiatric: FOUND: alert, attentive, normal affect, oriented Laboratory Laboratory Laboratory Tests 01/30/17 05:43 Laboratory Tests 01/30/17 05:43 Assessment & Plan Problems: (1) Fall Onset Date: 01/30/2017 Status: Acute Qualifiers: Encounter type: initial encounter Qualified Codes: W19.XXXA - Unspecified fall, initial encounter (2) Hypernatremia Status: Resolved Assessment & Plan: Present on admission (3) Cognitive and behavioral changes Status: Acute (4) Alzheimer's dementia Status: Chronic (5) Hyperlipidemia Status: Chronic (6) Hypertension (7) History of TIAs Status: Chronic (8) GERD (gastroesophageal reflux disease) Status: Chronic Qualifiers: Esophagitis presence: esophagitis presence not specified Qualified Codes: K21.9 - Gastro-esophageal reflux disease without esophagitis (9) Osteoarthritis Status: Chronic Qualifiers: Osteoarthritis location: multiple joints Osteoarthritis type: primary Qualified Codes: M15.0 - Primary generalized (osteo)arthritis (10) Neuropathy Status: Chronic (11) Macular degeneration Status: Chronic (12) Hard of hearing Status: Chronic Qualifiers: Hearing loss type: unspecified Laterality: bilateral Qualified Codes: H91.93 - Unspecified hearing loss, bilateral Plan/Intensity of Service Patient fell last night, now complaining of lumbar and coccygeal pain. Will obtain lumbar spine and pelvis x-rays. If she does have a fracture, the patient would benefit from a metabolic bone consultation with Dr. Schmitd. Labs are reviewed. Stable. Hypernatremia has resolved. Psychiatric notes reviewed. Discharge planning process. Code Status Do Not Resuscitate Hospital Course Summary Disclaimer The hospital course summary below is not to be considered part of the above Progress Note. Hospital Course Summary Agree with admission to the [facility] unit for further psychiatric evaluation and treatment Monitor blood pressure and continue on Verapamil Agree with continuation of other chronic home medications. Tylenol as needed for chronic back pain Encourage patient to participate in unit activities and provide a safe environment Psychiatric management as per Dr Arguello The hospitalist service will continue to follow patient and medical manage her existing medical comorbidities. At time of discharge medical care will return to PCP in Dr Blayne Laura 01/25/17 Labs reviewed. Mild hypernatremia noted. Encourage oral intake. Lipid panel, vitamin B12, folate, hemoglobin A1c were all unremarkable. Vital signs overall have been stable, mild to moderate elevations in blood pressure. She is on spironolactone and verapamil for antihypertensives. Psychiatric progress notes reviewed. Seroquel was increased to 50 mg HS; considering adding daytime Seroquel. 01/27/17 Medically stable. Blood pressure continues to be moderately elevated, though nothing alarming. Continue verapamil and spironolactone. Psychiatric progress notes, reviewed: Delusional thoughts more likely related to delusional disorder than dementia. 01/29/17- Pt. remains fairly stable medically. Continue current medications. BP is marginally elevated- Could consider changing Verapamil to Cardizem CD for daily dosing. Repeat labs in AM. Monitor K on Aldactone. Delusion behavior persists. 01/31/17 Patient fell last night, now complaining of lumbar and coccygeal pain. Will obtain lumbar spine and pelvis x-rays. If she does have a fracture, the patient would benefit from a metabolic bone consultation with Dr. Schmidt. Labs are reviewed. Stable. Hypernatremia has resolved. Psychiatric notes reviewed. Discharge planning process. GEORGINA MARTIN [employer] January 31, 2017 11:18
--- NOTE | 2017-01-31 14:10 | NUR ---
MULTISKILL OPERATOR--INDIVIDUAL LSCSW met with pt. 1:1 to talk about pt. about potential discharge plans. Pt. states she is anxious to get back to her AL apt. at [facility]. She states she loves her apt. and that she is very happy living there. She said they have lots of activities and she has lots of friends there. Pt. was advised that the facility is concerned about her returning to her AL apt. if she is still insistent about getting to the robotic maintenance technician at the facility. Pt.'s voice grew more tense and she frowned as she asked, "Whose business is it whether or not I get ? There are lots of people at the facility that are ." Pt. was advised that the maintenance plumber does not want to get at this time. Pt asked, "Why didn't he tell me himself? I can't believe that...we had such fun on our dates." This SW called Zita Ulrich back at [phone]. She said their facility is reluctant to accept pt. back into her AL apt. if she continues to express the same delusion of getting . She knows they will have to accept pt. back at time of discharge, but they may need to look for another more appropriate placement. They have a locked unit but pt. is aware enough to know the code and would likely let herself out. Pt. has refused mental health services in the past and she would have to be agreeable if she is to stay. This SW reviewed current medications. Zita Marinelli will visit with her staff and would likely send someone over to assess patient. This SW suggested writing down expectations for patient if she is able to return. This SW spoke with pt. about concerns of care home. She states she will agree not to pursue getting because she really wants to return to her apt. She also states she is agreeable to f.u. with mental health services if scheduled.
--- NOTE | 2017-01-31 14:37 | DI ---
Indication: ITS.REASON: fall, L pelvic pain Procedure: PELVIS 1-2 VIEW DEDICATED PELV: Encounter: Initial Comparison: Concurrent lumbar spine radiographs Technique: A single AP view of the pelvis was obtained Findings: Generalized osteopenia. The visualized osseous structures appear intact with no acute fracture identified. Degenerative arthrosis of the hips, SI joints, and symphysis pubis. Degenerative spondylosis of the visualized lower lumbar spine. No focal radiographically apparent soft tissue abnormality. Surgical clips seen overlying the abdomen. Vascular atherosclerotic calcifications noted. Impression: Degenerative arthrosis of the hips, SI joints, and symphysis pubis as well as degenerative spondylosis of the visualized lower lumbar spine, with no acute fracture or malalignment identified. .
--- NOTE | 2017-01-31 14:39 | DI ---
EXAM: LUMBAR SPINE 2-3 VIEWS DATE: 01/31/2017 11:17 AM ENCOUNTER: Initial INDICATION: ITS.REASON: fall, L-spine pain COMPARISON: None available. TECHNIQUE: 3 views of the lumbar spine were obtained. FINDINGS: Five non rib-bearing lumbar type vertebrae are identified. Generalized osteopenia. Rotatory scoliosis. The vertebral bodies are otherwise normal in height and alignment without evidence of acute fracture or significant spondylolisthesis. Multilevel degenerative disc disease and facet arthropathy. Degenerative arthrosis of the SI joints. The visualized bowel gas pattern is unremarkable. IMPRESSION: Rotatory scoliosis with associated multilevel degenerative spondylosis however no acute osseous abnormality identified. .
--- NOTE | 2017-01-31 15:10 | NUR ---
CM CM SPOKE WITH SD FROM FACILITY. SD STATES THAT FACILITY WILL MEET AND COME TO [facility] TO EVAL PT. FOR APPROPRIATENESS SD DOES ADMIT THAT SHE HAS CONCERNS ABOUT MEETING PT NEEDS. CM ASKED IF FACILITY HAD REACHED OUT TO FAMILY AND THEY STATED NO THEY HAVE NOT BUT UNDERSTAND THAT CM CAN NOT PROCEED UNTIL THEY ASSESS PT AND TALK WITH FAMILY. SD WILL VISIT WITH HER TEAM AND NOTIFY CM WHEN COMING TO SEE PT.
--- NOTE | 2017-01-31 15:35 | NUR ---
Status Pt was cooperative with assessment, cares and medications. Pt is happy in affect and likes to have activities to do. Pt has had no complaints of pain or discomfort and received no PRN medications so far this shift. Pt is able to make her needs known and uses call light appropriately. Pt is currently in the dining room playing checkers with staff and other patients.
[2017-01-31 16:00] VITALS: BP 145/59; PULSE 67; RESP 16; TEMP 97.8; O2SAT 97
--- NOTE | 2017-01-31 16:27 | GENPN ---
[facility] Subjective Date DATE: 01/31/17 TIME: 16:21 Subjective/Severity of Illness Medications Current Medications Medications (Trade) Dose Ordered Sig/Gaby Start Time Stop Time Status Last Admin Dose Admin Miscellaneous Medication (May use PRN orders) 1 PRN PRN 01/21/17 22:00 Haloperidol (Haldol) 0.5 mg Q6H PRN 01/21/17 22:00 Lorazepam (Ativan) 0.5 mg Q6H PRN 01/21/17 22:00 Lorazepam (Ativan) 0.5 mg Q6H PRN 01/21/17 22:00 Haloperidol Lactate (Haldol 5 Mg/ml Inj) 0.5 mg Q6H PRN 01/21/17 22:00 Acetaminophen (Tylenol Regular Strength) 1-2 tabs for arthri... Q6H PRN 01/21/17 23:00 01/21/17 23:01 DC Bethanechol Chloride (Urecholine 25 Mg) 25 mg DAILY 01/22/17 09:00 01/22/17 09:00 DC Bisacodyl (Dulcolax) 10 mg DAILY PRN 01/21/17 23:00 01/21/17 23:01 DC Bismuth Subsalicylate (Pepto-Bismol) 524 mg Q6H PRN 01/21/17 23:00 01/21/17 23:01 DC Donepezil HCl (Aricept) 10 mg DAILY 01/22/17 09:00 01/22/17 09:00 DC Guaifenesin (Robitussin) 200 mg Q4HR PRN 01/21/17 23:00 01/21/17 23:01 DC Lutein (Lutein) 20 mg DAILY 01/22/17 09:00 01/22/17 09:00 DC Pravastatin Sodium (Pravachol) 40 mg DAILY 01/22/17 09:00 01/22/17 09:00 DC Quetiapine Fumarate (Seroquel) 25 mg BID 01/22/17 09:00 01/22/17 09:00 DC Ranitidine HCl (Zantac) 150 mg HS 01/22/17 21:00 01/22/17 21:00 DC Spironolactone (Aldactone) 50 mg DAILY 01/22/17 09:00 01/22/17 09:00 DC Verapamil HCl (Calan) 80 mg TID 01/22/17 09:00 01/22/17 09:00 DC Al Hydroxide/Mg Hydroxide (Maalox) Take TID PRN for stom... TID PRN 01/21/17 23:00 Multivitamins Therapeutic (Theragran) 1 tab DAILY 01/22/17 09:00 01/31/17 08:57 1 TAB Acetaminophen (Tylenol Regular Strength) 1-2 tabs for arthri... Q6H PRN 01/22/17 05:00 01/31/17 06:22 650 MG Bethanechol Chloride (Urecholine 25 Mg) 25 mg DAILY 01/21/17 23:00 01/23/17 09:46 DC 01/23/17 08:46 25 MG Bisacodyl (Dulcolax) 10 mg DAILY PRN 01/21/17 23:00 Bismuth Subsalicylate (Pepto-Bismol) 524 mg Q6H PRN 01/22/17 05:00 Donepezil HCl (Aricept) 10 mg DAILY 01/21/17 23:00 01/24/17 08:32 DC 01/23/17 08:46 10 MG Guaifenesin (Robitussin) 200 mg Q4HR PRN 01/21/17 23:00 Lutein (Lutein) 20 mg DAILY 01/21/17 23:00 01/22/17 07:13 DC Pravastatin Sodium (Pravachol) 40 mg DAILY 01/21/17 23:00 01/22/17 07:08 DC Quetiapine Fumarate (Seroquel) 25 mg BID 01/21/17 23:00 01/23/17 07:10 DC 01/22/17 20:00 25 MG Ranitidine HCl (Zantac) 150 mg HS 01/21/17 23:00 01/30/17 21:14 150 MG Spironolactone (Aldactone) 50 mg DAILY 01/21/17 23:00 01/31/17 08:57 50 MG Verapamil HCl (Calan) 80 mg TID 01/21/17 23:00 01/31/17 15:43 80 MG Pravastatin Sodium (Pravachol) 40 mg HS 01/22/17 21:00 01/30/17 21:14 40 MG Non-Formulary Medication 2 DAILY 01/22/17 09:00 01/24/17 12:38 DC 01/24/17 08:31 2 Quetiapine Fumarate (Seroquel) 25 mg DAILY 01/23/17 09:00 01/25/17 09:55 DC 01/25/17 08:44 25 MG Quetiapine Fumarate (Seroquel) 50 mg HS 01/23/17 21:00 01/25/17 09:55 DC 01/24/17 20:17 50 MG Bethanechol Chloride (Urecholine 25 Mg) 25 mg ACB 01/24/17 06:30 01/31/17 06:03 25 MG Donepezil HCl (Aricept) 10 mg HS 01/24/17 21:00 01/30/17 21:14 10 MG Lutein (Lutein) 20 mg DAILY 01/25/17 09:00 01/31/17 08:57 20 MG Quetiapine Fumarate (Seroquel) 25 mg ,13 01/25/17 13:00 01/27/17 09:36 DC 01/27/17 08:21 25 MG Quetiapine Fumarate (Seroquel) 75 mg HS 01/25/17 21:00 01/27/17 09:36 DC 01/26/17 19:55 75 MG Quetiapine Fumarate (Seroquel) 50 mg ,13 01/27/17 13:00 01/31/17 13:14 50 MG Quetiapine Fumarate (Seroquel) 100 mg HS 01/27/17 21:00 01/30/17 21:14 100 MG Subjective Patient seen and chart reviewed. Case discussed with treatment team. Patient was seen laying down on her bed and reports that she fell down last night. She stated that she only hit her buttock on the floor and there was no head injury. Staff reports that she slided to the floor. Patient had presented with erotomanic delusions, but appears not to bring it up today. She is on Seroquel 50mg daily and 150mg q hs.Per staff, patient has not had any significant behavioral difficulties. Appetite is good. VSS. No psychotropic PRNs required in the past 24 hours. Time of Service: 12:00 Start Time: 12:00 Stop Time: 12:15 Care >50% of this visit spent in counseling/coordination care. [facility] Exam Vitals Vital Signs Date Time Temp Pulse Resp B/P Pulse Ox O2 Delivery O2 Flow Rate FiO2 01/31/17 08:00 97.9 69 20 137/67 93 Room Air Physical examination performed by the hospitalist. Height (Feet): 5 Height (Inches): 5.00 Mental Status Exam Muscle Strength/Tone: Weak Dressing: Casual Grooming: Good Attitude: Cooperative Motor Activity: Normal Eye Contact: Fair Speech: Normal Volume: Normal Rhythm: Appropriate Rhythm Sensory: Alert Orientation: Oriented to person, Oriented to place Mood: Neutral Affect: Congruent Rate of Thoughts: Appropriate Rate Thought Organization: Disorganized Associations: Intact Abstract Reasoning: Impaired, concrete Thought Content: Delusions Perception/Psychotic: Psychotic Attention Span/Concentration: Normal Language: Naming Impaired Fund of Knowledge: Poor fund of knowledge Memory: Poor-immediate, Poor-recent Suicidal Ideation: None Homicidal Ideation: None Insight: Poor Judgment: Poor Impulse Control: Poor Assessment and Plan (1) Alzheimer's dementia Assessment: 01/22/17: Started Seroquel 25mg PO q HS. 01/23/17: Increased Seroquel to 50mg PO q HS. 01/24/17: Continue current care and monitor response to treatment; will likely consider addition of daytime Seroquel as well tomorrow. 01/25/17: Increase Seroquel to 25mg PO BID (AM and afternoon, and 75mg PO q HS to target continued delusional thoughts. 01/26/17: Delusional thought content believed to be more related to delusional disorder than dementia process. Will continue current care as patient is complaining of feeling sedated after recent increase. Irritability decreased but delusional thought content continue, though believed to be decreasing in intensity. 01/27/17: Increase Seroquel to 50mg PO BID (AM and afternoon), and 100mg PO q HS to target continued delusional thoughts. Monitor for oversedation. 01/29/17: Patient does not appear to be oversedated at this dosage. As I believe this a well-formed delusion, goal of treatment would be to decrease intensity of delusions but will likely not rid of it completely. Patient has not been brining up delusional thoughts on unit other than when specifically asked. Primary goal at this point is to ensure patient safety and that she does not leave facility unit unsupervised. She agrees to this today but denies she did so previously. She may need locked unit if unable to comply with this recommendation. 01/30/17: Continue current care; review goals of treatment as above with treatment team tomorrow for arrangements after discharge. 01/31/17: Cont. current care (2) History of TIAs (3) Cognitive and behavioral changes (4) Hyperlipidemia (5) Hypertension (6) GERD (gastroesophageal reflux disease) Qualifiers: Qualified Codes: K21.9 - Gastro-esophageal reflux disease without esophagitis (7) Osteoarthritis Qualifiers: Qualified Codes: M15.0 - Primary generalized (osteo)arthritis (8) Neuropathy (9) Macular degeneration (10) Hard of hearing Qualifiers: Qualified Codes: H91.93 - Unspecified hearing loss, bilateral NARENDRA GOMEZ MD January 31, 2017 16:26 NARENDRA GOMEZ MD January 31, 2017 16:26
--- NOTE | 2017-01-31 18:34 | NUR ---
Summary Pt was cooperative with assessment cares and medications. Pt has received no PRN medications this shift. Pt is able to make her needs known and has had no behaviors and no delusional thoughts have been witnessed this shift. Pt has taken all medications and Pt has come out of her room more today than in the past. Pt is currently in her bedroom resting.
[2017-01-31 19:46] VITALS: BP 126/63; PULSE 54; RESP 16; TEMP 98; O2SAT 96
[2017-01-31] MEDS: DONEPEZIL 10 MG TABLET PO SCH (20:13)
[2017-01-31] MEDS: QUETIAPINE 100 MG TABLET PO SCH (20:13)
[2017-01-31] MEDS: RANITIDINE 150 MG TABLET PO SCH (20:13)
[2017-01-31] MEDS: PRAVASTATIN 40 MG TABLET PO SCH (20:14)
[2017-02-01] MEDS: BETHANECHOL 25 MG TABLET PO SCH (05:05)
[2017-02-01] MEDS: ACETAMINOPHEN 325 MG TABLET PO PRN ×2 (05:17→13:36)
[2017-02-01 05:20] VITALS: PULSE 60
--- NOTE | 2017-02-01 07:16 | NUR ---
Bedtime Pt. is in bed at 2114. Pt. is asleep at 2129.
--- NOTE | 2017-02-01 08:08 | NUR ---
Chart Check 24 hour chart check completed
--- NOTE | 2017-02-01 08:09 | NUR ---
Summary Pt. is pleasant and cooperative. Pt. is appropriate with staff. Pt. notifies staff of needs. Pt. does not make delusional statements this shift. Pt. does complain of pain in lower back. Pt. rates pain 5/10. Pt. is given Tylenol 650mg at 0517. No behavioral meds given. Pt. is resting in bed with the bed alarm activated and SR up x2.
[2017-02-01 08:42] VITALS: BP 137/71; PULSE 69; RESP 18; TEMP 96.9; O2SAT 95
[2017-02-01] MEDS: LUTEIN 20 MG PO SCH (08:49)
[2017-02-01] MEDS: SPIRONOLACTONE 50 MG TABLET PO SCH (08:49)
[2017-02-01] MEDS: VERAPAMIL 80 MG TABLET PO SCH ×3 (08:49→20:32)
[2017-02-01] MEDS: QUETIAPINE 50 MG TABLET PO SCH ×2 (08:49→13:29)
[2017-02-01] MEDS: MULTIVITAMIN PLAIN TABLET PO SCH (08:49)
--- NOTE | 2017-02-01 09:00 | NUR ---
SLEEP 10.0 Hours Pt went to bed at 2115 last night and awoke at 0800. Pt slept a total of 10.0 hours as documented on the 15 minute observation forms.
--- NOTE | 2017-02-01 13:54 | NUR ---
Status Pt was cooperative with assessment, cares and medications. Pt is happy in affect. Pt has had no complaints of pain or discomfort and received no PRN medications so far this shift. Pt is able to make her needs known and uses call light appropriately. Pt is currently in the dining room playing a game with staff and other patients.
--- NOTE | 2017-02-01 16:09 | NUR ---
ELIZABETH JOHNSON SPOKE WITH SD FROM [facility] AND SHE STATES THAT THEY WILL ACCEPT PT BACK TO [place] POST STAY AT [facility]. HOWEVER SANGEETA WANTS TO HAVE FAMILY MEETING AT THE [facility] BEFORE PT RETURNS TO GO OVER SOME CONDITIONS WITH PT AND FAMILY. ELIZABETH SPOKE WITH GENERATION RACKING TECHNICIAN WHO IS AWARE OF THE PLAN. SANGEETA STATES THAT SHE WILL CONTACT PT DAUGHTER AUDREY AND DISCUSS IT WITH HER. JOSE AWARE TO CONTACT CM IF NEEDS ARISE.
[2017-02-01 16:18] VITALS: BP 128/64; PULSE 61; RESP 16; TEMP 98.5; O2SAT 92
--- NOTE | 2017-02-01 17:53 | NUR ---
Summary Pt was pleasant and cooperative the entire shift. Pt is able to make her needs known and has had no behaviors and no delusional thoughts have been witnessed this shift. Pt has taken all medications and is currently in her bedroom resting.
--- NOTE | 2017-02-01 19:25 | GENPN ---
[facility] Subjective Date DATE: 02/01/17 TIME: 19:17 Subjective/Severity of Illness Medications Current Medications Medications (Trade) Dose Ordered Sig/Gaby Start Time Stop Time Status Last Admin Dose Admin Miscellaneous Medication (May use PRN orders) 1 PRN PRN 01/21/17 22:00 Haloperidol (Haldol) 0.5 mg Q6H PRN 01/21/17 22:00 Lorazepam (Ativan) 0.5 mg Q6H PRN 01/21/17 22:00 Lorazepam (Ativan) 0.5 mg Q6H PRN 01/21/17 22:00 Haloperidol Lactate (Haldol 5 Mg/ml Inj) 0.5 mg Q6H PRN 01/21/17 22:00 Acetaminophen (Tylenol Regular Strength) 1-2 tabs for arthri... Q6H PRN 01/21/17 23:00 01/21/17 23:01 DC Bethanechol Chloride (Urecholine 25 Mg) 25 mg DAILY 01/22/17 09:00 01/22/17 09:00 DC Bisacodyl (Dulcolax) 10 mg DAILY PRN 01/21/17 23:00 01/21/17 23:01 DC Bismuth Subsalicylate (Pepto-Bismol) 524 mg Q6H PRN 01/21/17 23:00 01/21/17 23:01 DC Donepezil HCl (Aricept) 10 mg DAILY 01/22/17 09:00 01/22/17 09:00 DC Guaifenesin (Robitussin) 200 mg Q4HR PRN 01/21/17 23:00 01/21/17 23:01 DC Lutein (Lutein) 20 mg DAILY 01/22/17 09:00 01/22/17 09:00 DC Pravastatin Sodium (Pravachol) 40 mg DAILY 01/22/17 09:00 01/22/17 09:00 DC Quetiapine Fumarate (Seroquel) 25 mg BID 01/22/17 09:00 01/22/17 09:00 DC Ranitidine HCl (Zantac) 150 mg HS 01/22/17 21:00 01/22/17 21:00 DC Spironolactone (Aldactone) 50 mg DAILY 01/22/17 09:00 01/22/17 09:00 DC Verapamil HCl (Calan) 80 mg TID 01/22/17 09:00 01/22/17 09:00 DC Al Hydroxide/Mg Hydroxide (Maalox) Take TID PRN for stom... TID PRN 01/21/17 23:00 Multivitamins Therapeutic (Theragran) 1 tab DAILY 01/22/17 09:00 02/01/17 08:49 1 TAB Acetaminophen (Tylenol Regular Strength) 1-2 tabs for arthri... Q6H PRN 01/22/17 05:00 02/01/17 13:36 650 MG Bethanechol Chloride (Urecholine 25 Mg) 25 mg DAILY 01/21/17 23:00 01/23/17 09:46 DC 01/23/17 08:46 25 MG Bisacodyl (Dulcolax) 10 mg DAILY PRN 01/21/17 23:00 Bismuth Subsalicylate (Pepto-Bismol) 524 mg Q6H PRN 01/22/17 05:00 Donepezil HCl (Aricept) 10 mg DAILY 01/21/17 23:00 01/24/17 08:32 DC 01/23/17 08:46 10 MG Guaifenesin (Robitussin) 200 mg Q4HR PRN 01/21/17 23:00 Lutein (Lutein) 20 mg DAILY 01/21/17 23:00 01/22/17 07:13 DC Pravastatin Sodium (Pravachol) 40 mg DAILY 01/21/17 23:00 01/22/17 07:08 DC Quetiapine Fumarate (Seroquel) 25 mg BID 01/21/17 23:00 01/23/17 07:10 DC 01/22/17 20:00 25 MG Ranitidine HCl (Zantac) 150 mg HS 01/21/17 23:00 01/31/17 20:13 150 MG Spironolactone (Aldactone) 50 mg DAILY 01/21/17 23:00 02/01/17 08:49 50 MG Verapamil HCl (Calan) 80 mg TID 01/21/17 23:00 02/01/17 15:44 80 MG Pravastatin Sodium (Pravachol) 40 mg HS 01/22/17 21:00 01/31/17 20:14 40 MG Non-Formulary Medication 2 DAILY 01/22/17 09:00 01/24/17 12:38 DC 01/24/17 08:31 2 Quetiapine Fumarate (Seroquel) 25 mg DAILY 01/23/17 09:00 01/25/17 09:55 DC 01/25/17 08:44 25 MG Quetiapine Fumarate (Seroquel) 50 mg HS 01/23/17 21:00 01/25/17 09:55 DC 01/24/17 20:17 50 MG Bethanechol Chloride (Urecholine 25 Mg) 25 mg ACB 01/24/17 06:30 02/01/17 05:05 25 MG Donepezil HCl (Aricept) 10 mg HS 01/24/17 21:00 01/31/17 20:13 10 MG Lutein (Lutein) 20 mg DAILY 01/25/17 09:00 02/01/17 08:49 20 MG Quetiapine Fumarate (Seroquel) 25 mg 09,13 01/25/17 13:00 01/27/17 09:36 DC 01/27/17 08:21 25 MG Quetiapine Fumarate (Seroquel) 75 mg HS 01/25/17 21:00 01/27/17 09:36 DC 01/26/17 19:55 75 MG Quetiapine Fumarate (Seroquel) 50 mg 09,13 01/27/17 13:00 02/01/17 13:29 50 MG Quetiapine Fumarate (Seroquel) 100 mg HS 01/27/17 21:00 01/31/17 20:13 100 MG Subjective Patient seen and chart reviewed. Case discussed with treatment team. Patient reports that she wants to go home and blames her daughter for not letting her . She is unable to recall the name of the person she wants to . Earlier she had agreed with the SW not bring any issue concerning her getting when he is discharged. Patient denies any depressive or anxiety symptoms and reports that she is tolerating her medication without any side effect. Appetite is good. VSS. No psychotropic PRNs required in the past 24 hours. Time of Service: 15:00 Start Time: 15:00 Stop Time: 15:15 Care >50% of this visit spent in counseling/coordination care. [facility] Exam Vitals Vital Signs Date Time Temp Pulse Resp B/P Pulse Ox O2 Delivery O2 Flow Rate FiO2 02/01/17 16:18 98.5 61 16 128/64 92 Room Air Physical examination performed by the hospitalist. Height (Feet): 5 Height (Inches): 5.00 Mental Status Exam Muscle Strength/Tone: Weak Dressing: Casual Grooming: Good Attitude: Suspicious Motor Activity: Normal Eye Contact: Good Speech: Normal Volume: Normal Rhythm: Appropriate Rhythm Sensory: Alert Orientation: Oriented to person Mood: Neutral Affect: Stable Thought Organization: Perseverations Associations: Illogical Abstract Reasoning: Impaired, concrete Computation: Poor Computation Thought Content: Delusions Attention Span/Concentration: Distractable Language: Naming Impaired Fund of Knowledge: Poor fund of knowledge Memory: Poor-immediate, Poor-recent Suicidal Ideation: None Homicidal Ideation: None Insight: Poor Judgment: Poor Impulse Control: Poor Assessment and Plan (1) Alzheimer's dementia Assessment: 01/22/17: Started Seroquel 25mg PO q HS. 01/23/17: Increased Seroquel to 50mg PO q HS. 01/24/17: Continue current care and monitor response to treatment; will likely consider addition of daytime Seroquel as well tomorrow. 01/25/17: Increase Seroquel to 25mg PO BID (AM and afternoon, and 75mg PO q HS to target continued delusional thoughts. 01/26/17: Delusional thought content believed to be more related to delusional disorder than dementia process. Will continue current care as patient is complaining of feeling sedated after recent increase. Irritability decreased but delusional thought content continue, though believed to be decreasing in intensity. 01/27/17: Increase Seroquel to 50mg PO BID (AM and afternoon), and 100mg PO q HS to target continued delusional thoughts. Monitor for oversedation. 01/29/17: Patient does not appear to be oversedated at this dosage. As I believe this a well-formed delusion, goal of treatment would be to decrease intensity of delusions but will likely not rid of it completely. Patient has not been brining up delusional thoughts on unit other than when specifically asked. Primary goal at this point is to ensure patient safety and that she does not leave facility unit unsupervised. She agrees to this today but denies she did so previously. She may need locked unit if unable to comply with this recommendation. 01/30/17: Continue current care; review goals of treatment as above with treatment team tomorrow for arrangements after discharge. 01/31/17: Cont. current care. 02/01/17: Cont current treatment. Possible discharge tomorrow if [facility] accepts patient. Will strongly prefer a locked unit for this patient. (2) History of TIAs (3) Cognitive and behavioral changes (4) Hyperlipidemia (5) Hypertension (6) GERD (gastroesophageal reflux disease) Qualifiers: Qualified Codes: K21.9 - Gastro-esophageal reflux disease without esophagitis (7) Osteoarthritis Qualifiers: Qualified Codes: M15.0 - Primary generalized (osteo)arthritis (8) Neuropathy (9) Macular degeneration (10) Hard of hearing Qualifiers: Qualified Codes: H91.93 - Unspecified hearing loss, bilateral NARENDRA GOMEZ MD February 01, 2017 19:21
[2017-02-01 19:54] VITALS: BP 120/60; PULSE 16; RESP 16; TEMP 97.4; O2SAT 95
[2017-02-01] MEDS: PRAVASTATIN 40 MG TABLET PO SCH (20:31)
[2017-02-01] MEDS: QUETIAPINE 100 MG TABLET PO SCH (20:31)
[2017-02-01] MEDS: RANITIDINE 150 MG TABLET PO SCH (20:31)
[2017-02-01] MEDS: DONEPEZIL 10 MG TABLET PO SCH (20:31)
--- NOTE | 2017-02-01 22:09 | NUR ---
SUMMARY PATIENT HAS BEEN PLEASANT AND COOPERATIVE WITH STAFF. SHE TOOK ALL HER MEDICATIONS WHOLE. SHE DENIED ANY DELUSIONAL THINKING AND DID NOT MENTION ONCE THE STORY OF HER TRYING TO GET WITH A 30 YEAR OLD. SHE WAS IN THE DAYROOM FOR A SHORT PERIOD AND THEN WENT TO HER ROOM AND SAT FOR ABOUT AN HOUR IN THE RECLINER BEFORE GOING TO BED. NO PRN'S GIVEN OF NOW. SHE IS RESTING IN BED ASLEEP AT THIS TIME WITH BED ALARM ON AND BED RAILS UP X2.
[2017-02-02] MEDS: BETHANECHOL 25 MG TABLET PO SCH (06:25)
[2017-02-02] MEDS: ACETAMINOPHEN 325 MG TABLET PO PRN ×2 (06:36→20:18)
--- NOTE | 2017-02-02 06:37 | NUR ---
Chart Check 24 hour chart check completed
--- NOTE | 2017-02-02 06:42 | NUR ---
Bedtime Pt. is asleep at 2200. Pt. is up twice to void and right back to sleep. No sleep during dayshift
--- NOTE | 2017-02-02 06:43 | NUR ---
Summary Pt. is pleasant and cooperative. Pt. is compliant with medication. Pt. is up ad cresencio and uses a FWW. Pt. uses her call light appropriately and is able to make needs known. Pt. does complain of aching pain in her bottom. Pt. is given Tylenol 650mg PO. Pt. rates pain 6/10. No delusional comments made. No behavioral prn medications given.
[2017-02-02 08:08] VITALS: BP 137/68; PULSE 76; RESP 16; TEMP 97.1; O2SAT 98
[2017-02-02] MEDS: SPIRONOLACTONE 50 MG TABLET PO SCH (08:21)
[2017-02-02] MEDS: QUETIAPINE 50 MG TABLET PO SCH ×2 (08:21→12:11)
[2017-02-02] MEDS: LUTEIN 20 MG PO SCH (08:21)
[2017-02-02] MEDS: MULTIVITAMIN PLAIN TABLET PO SCH (08:21)
[2017-02-02] MEDS: VERAPAMIL 80 MG TABLET PO SCH ×3 (08:21→20:12)
--- NOTE | 2017-02-02 12:47 | PNPDOC ---
Subjective Date DATE: 02/02/17 TIME: 12:45 Subjective Milena is seen this morning while doing a craft project. She is alert and states she is "doing good". Denies having any pain or shortness of breath. States appetite is good. BP 137/68. Objective Vital Signs Vital signs Vital Signs Date Time Temp Pulse Resp B/P Pulse Ox O2 Delivery O2 Flow Rate FiO2 02/02/17 08:08 97.1 76 16 137/68 98 Room Air Height (Feet): 5 Height (Inches): 5.00 Weight (Kilograms): 69.360 General General Appearance: Alert, Orientated x 1, Cooperative, No Acute Distress Eyes (Brief) Eyes: FOUND: EOMI ENMT (Brief) ENMT: FOUND: mucosa moist, normal dentition, NOT FOUND: pharnyx erythema Neck (Brief) Neck: FOUND: midline, NOT FOUND: adenopathy, carotid bruits, tracheal deviation Respiratory (Brief) Respiratory: FOUND: clear all moore, equal bilaterally, NOT FOUND: wheezes Cardiovascular (Brief) Cardiac: FOUND: regular rate, regular rhythm, NOT FOUND: murmur, pedal edema Capillary Refill: <2 sec Abdomen (Brief) Abdominal: FOUND: BS normo active x4, soft, NOT FOUND: distended, tender Lymphatic (Brief) Lymphatic: NOT FOUND: adenopathy Musculoskeletal (Brief) Musculoskeletal: NOT FOUND: tenderness Integumentary (Brief) Integumentary: FOUND: dry, pink, warm Neurologic (Brief) Neurological: FOUND: cranial 2-12 intact Psychiatric (Brief) Psychiatric: FOUND: alert, attentive, normal affect Comments Confused Assessment & Plan Problems: (1) Fall Onset Date: 01/30/2017 Status: Acute Qualifiers: Encounter type: initial encounter Qualified Codes: W19.XXXA - Unspecified fall, initial encounter (2) Hypernatremia Status: Resolved Assessment & Plan: Present on admission (3) Cognitive and behavioral changes Status: Acute (4) Alzheimer's dementia Status: Chronic (5) Hyperlipidemia Status: Chronic (6) Hypertension (7) History of TIAs Status: Chronic (8) GERD (gastroesophageal reflux disease) Status: Chronic Qualifiers: Esophagitis presence: esophagitis presence not specified Qualified Codes: K21.9 - Gastro-esophageal reflux disease without esophagitis (9) Osteoarthritis Status: Chronic Qualifiers: Osteoarthritis location: multiple joints Osteoarthritis type: primary Qualified Codes: M15.0 - Primary generalized (osteo)arthritis (10) Neuropathy Status: Chronic (11) Macular degeneration Status: Chronic (12) Hard of hearing Status: Chronic Qualifiers: Hearing loss type: unspecified Laterality: bilateral Qualified Codes: H91.93 - Unspecified hearing loss, bilateral Plan/Intensity of Service 02/02/17 Overall medically appears to be doing well BP is well controlled Hypernatremia improved Continue to encourage participation in unit activities. Code Status Do Not Resuscitate Hospital Course Summary Disclaimer The hospital course summary below is not to be considered part of the above Progress Note. Hospital Course Summary Agree with admission to the [facility] unit for further psychiatric evaluation and treatment Monitor blood pressure and continue on Verapamil Agree with continuation of other chronic home medications. Tylenol as needed for chronic back pain Encourage patient to participate in unit activities and provide a safe environment Psychiatric management as per Dr Arguello The hospitalist service will continue to follow patient and medical manage her existing medical comorbidities. At time of discharge medical care will return to PCP in Dr Blayne Laura 01/25/17 Labs reviewed. Mild hypernatremia noted. Encourage oral intake. Lipid panel, vitamin B12, folate, hemoglobin A1c were all unremarkable. Vital signs overall have been stable, mild to moderate elevations in blood pressure. She is on spironolactone and verapamil for antihypertensives. Psychiatric progress notes reviewed. Seroquel was increased to 50 mg HS; considering adding daytime Seroquel. 01/27/17 Medically stable. Blood pressure continues to be moderately elevated, though nothing alarming. Continue verapamil and spironolactone. Psychiatric progress notes, reviewed: Delusional thoughts more likely related to delusional disorder than dementia. 01/29/17- Pt. remains fairly stable medically. Continue current medications. BP is marginally elevated- Could consider changing Verapamil to Cardizem CD for daily dosing. Repeat labs in AM. Monitor K on Aldactone. Delusion behavior persists. 01/31/17 Patient fell last night, now complaining of lumbar and coccygeal pain. Will obtain lumbar spine and pelvis x-rays. If she does have a fracture, the patient would benefit from a metabolic bone consultation with Dr. Schmidt. Labs are reviewed. Stable. Hypernatremia has resolved. Psychiatric notes reviewed. Discharge planning process. DANNY SHEETS APRN February 02, 2017 12:47
--- NOTE | 2017-02-02 12:58 | NUR ---
ELIZABETH CM SPOKE WITH AUDREY PT DAUGHTER REGARDING PLANNED D/C FOR TOMORROW. FAMILY MEETING WILL BE AT 3:00PM TOMORROW AND THEN SANGEETA FROM [facility] CAN TRANSPORT [place] [facility] [place] AUDREY AND SANGEETA ARE AWARE TO CONTACT CM IF NEEDS ARISE.
--- NOTE | 2017-02-02 14:04 | GENPN ---
[facility] Subjective Date DATE: 02/02/17 TIME: 13:56 Subjective/Severity of Illness Medications Current Medications Medications (Trade) Dose Ordered Sig/Gaby Start Time Stop Time Status Last Admin Dose Admin Miscellaneous Medication (May use PRN orders) 1 PRN PRN 01/21/17 22:00 Haloperidol (Haldol) 0.5 mg Q6H PRN 01/21/17 22:00 Lorazepam (Ativan) 0.5 mg Q6H PRN 01/21/17 22:00 Lorazepam (Ativan) 0.5 mg Q6H PRN 01/21/17 22:00 Haloperidol Lactate (Haldol 5 Mg/ml Inj) 0.5 mg Q6H PRN 01/21/17 22:00 Acetaminophen (Tylenol Regular Strength) 1-2 tabs for arthri... Q6H PRN 01/21/17 23:00 01/21/17 23:01 DC Bethanechol Chloride (Urecholine 25 Mg) 25 mg DAILY 01/22/17 09:00 01/22/17 09:00 DC Bisacodyl (Dulcolax) 10 mg DAILY PRN 01/21/17 23:00 01/21/17 23:01 DC Bismuth Subsalicylate (Pepto-Bismol) 524 mg Q6H PRN 01/21/17 23:00 01/21/17 23:01 DC Donepezil HCl (Aricept) 10 mg DAILY 01/22/17 09:00 01/22/17 09:00 DC Guaifenesin (Robitussin) 200 mg Q4HR PRN 01/21/17 23:00 01/21/17 23:01 DC Lutein (Lutein) 20 mg DAILY 01/22/17 09:00 01/22/17 09:00 DC Pravastatin Sodium (Pravachol) 40 mg DAILY 01/22/17 09:00 01/22/17 09:00 DC Quetiapine Fumarate (Seroquel) 25 mg BID 01/22/17 09:00 01/22/17 09:00 DC Ranitidine HCl (Zantac) 150 mg HS 01/22/17 21:00 01/22/17 21:00 DC Spironolactone (Aldactone) 50 mg DAILY 01/22/17 09:00 01/22/17 09:00 DC Verapamil HCl (Calan) 80 mg TID 01/22/17 09:00 01/22/17 09:00 DC Al Hydroxide/Mg Hydroxide (Maalox) Take TID PRN for stom... TID PRN 01/21/17 23:00 Multivitamins Therapeutic (Theragran) 1 tab DAILY 01/22/17 09:00 02/02/17 08:21 1 TAB Acetaminophen (Tylenol Regular Strength) 1-2 tabs for arthri... Q6H PRN 01/22/17 05:00 02/02/17 06:36 650 MG Bethanechol Chloride (Urecholine 25 Mg) 25 mg DAILY 01/21/17 23:00 01/23/17 09:46 DC 01/23/17 08:46 25 MG Bisacodyl (Dulcolax) 10 mg DAILY PRN 01/21/17 23:00 Bismuth Subsalicylate (Pepto-Bismol) 524 mg Q6H PRN 01/22/17 05:00 Donepezil HCl (Aricept) 10 mg DAILY 01/21/17 23:00 01/24/17 08:32 DC 01/23/17 08:46 10 MG Guaifenesin (Robitussin) 200 mg Q4HR PRN 01/21/17 23:00 Lutein (Lutein) 20 mg DAILY 01/21/17 23:00 01/22/17 07:13 DC Pravastatin Sodium (Pravachol) 40 mg DAILY 01/21/17 23:00 01/22/17 07:08 DC Quetiapine Fumarate (Seroquel) 25 mg BID 01/21/17 23:00 01/23/17 07:10 DC 01/22/17 20:00 25 MG Ranitidine HCl (Zantac) 150 mg HS 01/21/17 23:00 02/01/17 20:31 150 MG Spironolactone (Aldactone) 50 mg DAILY 01/21/17 23:00 02/02/17 08:21 50 MG Verapamil HCl (Calan) 80 mg TID 01/21/17 23:00 02/02/17 08:21 80 MG Pravastatin Sodium (Pravachol) 40 mg HS 01/22/17 21:00 02/01/17 20:31 40 MG Non-Formulary Medication 2 DAILY 01/22/17 09:00 01/24/17 12:38 DC 01/24/17 08:31 2 Quetiapine Fumarate (Seroquel) 25 mg DAILY 01/23/17 09:00 01/25/17 09:55 DC 01/25/17 08:44 25 MG Quetiapine Fumarate (Seroquel) 50 mg HS 01/23/17 21:00 01/25/17 09:55 DC 01/24/17 20:17 50 MG Bethanechol Chloride (Urecholine 25 Mg) 25 mg ACB 01/24/17 06:30 02/02/17 06:25 25 MG Donepezil HCl (Aricept) 10 mg HS 01/24/17 21:00 02/01/17 20:31 10 MG Lutein (Lutein) 20 mg DAILY 01/25/17 09:00 02/02/17 08:21 20 MG Quetiapine Fumarate (Seroquel) 25 mg 09,13 01/25/17 13:00 01/27/17 09:36 DC 01/27/17 08:21 25 MG Quetiapine Fumarate (Seroquel) 75 mg HS 01/25/17 21:00 01/27/17 09:36 DC 01/26/17 19:55 75 MG Quetiapine Fumarate (Seroquel) 50 mg 09,13 01/27/17 13:00 02/02/17 12:11 50 MG Quetiapine Fumarate (Seroquel) 100 mg HS 01/27/17 21:00 02/01/17 20:31 100 MG Subjective Patient seen and chart reviewed. Case discussed with treatment team. Patient reports that she is ready for discharge. She is tolerating her medication and denies any side effect. Patient has been less perseverative about getting . The plan will be for the facility to come assess patient tomorrow and she will probably discharge after the visit. Patient was seen to be in good mood and reports that she will be compliant with her medication on discharge. She denies any morbid thoughts, suicide ideations, intent or plans to hurt herself or some other person. Staff reports no behavioral problem. Appetite is good. VSS. No psychotropic PRNs required in the past 24 hours. Time of Service: :15 Start Time: 11:15 Stop Time: 11:30 Care >50% of this visit spent in counseling/coordination care. [facility] Exam Vitals Vital Signs Date Time Temp Pulse Resp B/P Pulse Ox O2 Delivery O2 Flow Rate FiO2 02/02/17 08:08 97.1 76 16 137/68 98 Room Air Physical examination performed by the hospitalist. Height (Feet): 5 Height (Inches): 5.00 Mental Status Exam Muscle Strength/Tone: Weak Dressing: Casual Grooming: Good Attitude: Cooperative Motor Activity: Normal Eye Contact: Good Speech: Normal Volume: Normal Rhythm: Appropriate Rhythm Sensory: Alert Orientation: Oriented to person, Oriented to place Mood: Euthymic Affect: Congruent Rate of Thoughts: Appropriate Rate Thought Organization: [place] Associations: Illogical Abstract Reasoning: Impaired, concrete Computation: Poor Computation Thought Content: Delusions Attention Span/Concentration: Normal Language: Naming Intact Fund of Knowledge: Poor fund of knowledge Memory: Grossly Intact Suicidal Ideation: None Homicidal Ideation: None Insight: Poor Judgment: Poor Impulse Control: Poor Assessment and Plan (1) Alzheimer's dementia Assessment: 01/22/17: Started Seroquel 25mg PO q HS. 01/23/17: Increased Seroquel to 50mg PO q HS. 01/24/17: Continue current care and monitor response to treatment; will likely consider addition of daytime Seroquel as well tomorrow. 01/25/17: Increase Seroquel to 25mg PO BID (AM and afternoon, and 75mg PO q HS to target continued delusional thoughts. 01/26/17: Delusional thought content believed to be more related to delusional disorder than dementia process. Will continue current care as patient is complaining of feeling sedated after recent increase. Irritability decreased but delusional thought content continue, though believed to be decreasing in intensity. 01/27/17: Increase Seroquel to 50mg PO BID (AM and afternoon), and 100mg PO q HS to target continued delusional thoughts. Monitor for oversedation. 01/29/17: Patient does not appear to be oversedated at this dosage. As I believe this a well-formed delusion, goal of treatment would be to decrease intensity of delusions but will likely not rid of it completely. Patient has not been brining up delusional thoughts on unit other than when specifically asked. Primary goal at this point is to ensure patient safety and that she does not leave facility unit unsupervised. She agrees to this today but denies she did so previously. She may need locked unit if unable to comply with this recommendation. 01/30/17: Continue current care; review goals of treatment as above with treatment team tomorrow for arrangements after discharge. 01/31/17: Cont. current care. 02/01/17: Cont current treatment. Possible discharge tomorrow if [facility] accepts patient. Will strongly prefer a locked unit for this patient. 02/02/17: Discharge patient tomorrow after evaluation by the facility. (2) History of TIAs (3) Cognitive and behavioral changes (4) Hyperlipidemia (5) Hypertension (6) GERD (gastroesophageal reflux disease) Qualifiers: Qualified Codes: K21.9 - Gastro-esophageal reflux disease without esophagitis (7) Osteoarthritis Qualifiers: Qualified Codes: M15.0 - Primary generalized (osteo)arthritis (8) Neuropathy (9) Macular degeneration (10) Hard of hearing Qualifiers: Qualified Codes: H91.93 - Unspecified hearing loss, bilateral NARENDRA GOMEZ MD February 02, 2017 14:02
--- NOTE | 2017-02-02 14:08 | NUR ---
status pt woke this am at 0730. slept total of 9.50 hrs. pleasant and cooperative able to make needs known. ate well for both meals. participates in activities this afternoon. compliant with medication. walks anna for exercise after breakfast. sitting in day room visiting with another female pt.
[2017-02-02 16:06] VITALS: BP 136/68; PULSE 63; RESP 16; TEMP 98.1; O2SAT 96
--- NOTE | 2017-02-02 18:31 | NUR ---
summary pt has been pleasant and cooperative all shift. takes all prescribed medication. has not slept since waking this am. pt has a good appetite. pt has not demonstrated any delusional thoughts. pt participates in activities this afternoon and visits appropriately with other female pt's.
[2017-02-02] MEDS: RANITIDINE 150 MG TABLET PO SCH (20:12)
[2017-02-02] MEDS: PRAVASTATIN 40 MG TABLET PO SCH (20:12)
[2017-02-02] MEDS: DONEPEZIL 10 MG TABLET PO SCH (20:12)
[2017-02-02] MEDS: QUETIAPINE 100 MG TABLET PO SCH (20:12)
[2017-02-02 21:09] VITALS: BP 159/75; PULSE 67; RESP 18; TEMP 97.4; O2SAT 97
--- NOTE | 2017-02-02 21:44 | PDOCECFAO ---
Admission Orders Admission Orders Admit to: [facility] Allergies: Coded Allergies: Penicillins (Verified Allergy, Severe, ANAPHYLACTIC SHOCK, 01/21/17) atorvastatin calcium (Verified Allergy, Unknown, MUSCLE WEAKNESS, 01/21/17) clarithromycin (Verified Allergy, Unknown, 01/21/17) cyclobenzaprine HCl (Verified Allergy, Unknown, 01/21/17) ezetimibe (Verified Allergy, Unknown, 02/17/12) hydrocodone bit (Verified Allergy, Unknown, 01/21/17) niacin (Verified Allergy, Unknown, HOT FLASHES AND ITCHING, 01/21/17) propranolol (Verified Allergy, Unknown, 02/17/12) rofecoxib (Verified Allergy, Unknown, 02/17/12) simvastatin (Verified Allergy, Unknown, ELEVATED LIVER ENZYMES, 01/21/17) Admitting Diagnosis [facility] Disord Due To Alzheim W/Beh Disturban Admitting Physician Uriel Levy MD Code Status Do Not Resuscitate Anticipated LOS: Greater than 30 days Rehab Potential: Fair Diet: Regular Wound/Incision Care: NA Not Applicable NARENDRA GOMEZ MD February 02, 2017 21:44
[2017-02-02] MEDS ORDERED: QUET100T69 PO (21:49)
[2017-02-02] MEDS ORDERED: QUET50TA53 PO (21:49)
--- NOTE | 2017-02-03 | NUR ---
status arrived on shift, patient was walking the anna with walker to get some exercise. Patient was alert and oriented x3. after walking in the hallway patient came and sat out in the dayroom to watch tv and visit with staff. Patient received a call from family member, call was appropriate. No behaviors noted. No delusional comments observed. Patient went to sleep at 2200 and is currently in bed resting with the bed alarm on and call light is in reach
--- NOTE | 2017-02-03 00:10 | NUR ---
Chart Check 24 hour chart check completed
--- NOTE | 2017-02-03 05:48 | NUR ---
summary after going to bed at 2200, patient has only woken once to use the restroom and then self directed back to bed. No behaviors noted, no prns given. patient is currently asleep in bed with the bed alarm on, rails upx2, and call light is in reach.
[2017-02-03] MEDS: BETHANECHOL 25 MG TABLET PO SCH (06:36)
[2017-02-03] MEDS: SPIRONOLACTONE 50 MG TABLET PO SCH (08:07)
[2017-02-03] MEDS: QUETIAPINE 50 MG TABLET PO SCH ×2 (08:07→12:57)
[2017-02-03] MEDS: MULTIVITAMIN PLAIN TABLET PO SCH (08:07)
[2017-02-03] MEDS: LUTEIN 20 MG PO SCH (08:07)
[2017-02-03] MEDS: VERAPAMIL 80 MG TABLET PO SCH ×2 (08:07→14:48)
[2017-02-03] MEDS ORDERED: CYAN10009 PO (08:17)
[2017-02-03 08:41] VITALS: BP 123/70; PULSE 66; RESP 16; TEMP 98; O2SAT 95
--- NOTE | 2017-02-03 11:08 | NUR ---
[employer]--AM GROUP Pt. was present and actively engaged in psychoeducational group facilitated by [facility]. Topic was on favorite memories of our mothers and Mother's Day memories. Pt. was alert, Ox3, with pleasant mood. She was alert and attentive as others spoke. She did provided answered to all questions asked. She talked lovingly about her children fixing her breakfast. Expanded conversation to include influence of spiritual romeo as a means of support and strength when facing challenges in life. Pt. agreed that prayer was an important aspect of her life. Ended group by playing Hymns. Pt. remained engaged and calm throughout entire group. She was observed singing along to some of the songs.
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
--- NOTE | 2017-02-03 16:04 | NUR ---
DISCHARGE SUMMARY Report called to Charley GAMING; unit contact information given along with plans for follow-up care with PCP and MH professional as outlined in [facility]. No pending labs on discharge. Pt is in stable condition and accompanied by daughter when taken via w/c to front entrance with belongings. Pt will be transported via family vehicle to [facility], [facility], all pt and DPOA's questions have been answered at this time.
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
== END 2017-02-03 16:17 | disposition home or self-care (01) | DRG 57 ==
LOC: GEN 17:20
PROVIDERS: ADMIT Psychiatry & Neurology Psychiatry; ATTEND Psychiatry & Neurology Psychiatry
DX: G30.9 Alzheimer's disease, unspecified (principal); F02.81 Dementia in other diseases classified elsewhere, unspecified severity, with behavioral disturbance; E87.0 Hyperosmolality and hypernatremia; I10 Essential (primary) hypertension; E78.5 Hyperlipidemia, unspecified; Z66 Do not resuscitate; K21.9 Gastro-esophageal reflux disease without esophagitis; M15.0 Primary generalized (osteo)arthritis; G62.9 Polyneuropathy, unspecified; H35.30 Unspecified macular degeneration; M54.5 Low back pain; M53.3 Sacrococcygeal disorders, not elsewhere classified; Z79.82 Long term (current) use of aspirin; Z86.73 Personal history of transient ischemic attack (TIA), and cerebral infarction without residual deficits
CPT/HCPCS: 36415; 80053; 80061; 80069; 81003; 82607; 82746; 83036; 83735; 85025